=== PATIENT | male | born 1965 | race Caucasian/White ===

== ENCOUNTER 2017-06-09 15:40 | Emergency (ER) | payer MEDICAID ==
--- NOTE | 2017-06-09 17:24 | EDM.PDOCBH ---
ED HPI GENERAL MEDICAL PROBLEM - General Chief Complaint: Drug or Alcohol Abuse Stated Complaint: MEDICAL CLEARANCE Time Seen by Provider: 06/09/17 16:05 Source of Information: Reports: Patient History Limitations: Reports: Intoxication - History of Present Illness INITIAL COMMENTS - FREE TEXT/NARRATIVE: The patient presents for medical clearance. The patient is an alcoholic and the called [facility] and they can get him into the [facility] for treatment. He last drank about an hour ago. He drinks vodka daily. He has been drinking heavy for about 4 years. He has a history of HTN and hypercholesterolemia. He is not taking his medications lately. He has no pain now. He is not short of breath. Onset: Gradual Duration: Week(s): Severity: Moderate Improves with: Reports: None Worsens with: Reports: None Associated Symptoms: Reports: No Other Symptoms - Related Data Allergies Allergy/AdvReac Type Severity Reaction Status Date / Time Penicillins Allergy Cannot Verified 06/09/17 16:03 Remember Home Meds: Home Meds Ascorbic Acid 500 mg PO DAILY 06/09/17 [History] Aspirin [Adult Low Dose Aspirin EC] 81 mg PO DAILY 06/09/17 [History] Bisoprolol/Hydrochlorothiazide [Bisoprolol/HCTZ 5-6.25 MG] 1 tab PO DAILY [History] Cyanocobalamin (Vitamin B-12) [Vitamin B-12] 100 mcg PO DAILY 06/09/17 [History] LORazepam [Ativan] 0.5 mg PO QID PRN 06/09/17 [History] Losartan Potassium 100 mg PO DAILY 06/09/17 [History] Pravastatin Sodium 20 mg PO DAILY 06/09/17 [History] Varenicline Tartrate [Chantix] 1 mg PO BID 06/09/17 [History] amLODIPine Besylate [Amlodipine Besylate] 5 mg PO DAILY 06/09/17 [History] buPROPion [Wellbutrin SR] 150 mg PO BID 06/09/17 [History] Past Medical History Cardiovascular History: Reports: High Cholesterol, Hypertension Psychiatric History: Reports: Addiction Social & Family History - Tobacco Use Smoking Status *Q: Current Every Day Smoker Years of Tobacco use: 40 Packs/Tins Daily: 1 Used Tobacco, but Quit: No Second Hand Smoke Exposure: No - Caffeine Use Caffeine Use: Reports: None - Alcohol Use Days Per Week of Alcohol Use: 7 Number of Drinks Per Day: 6 Total Drinks Per Week: 42 Date of Last Drink: 06/09/17 Time of Last Drink: 14:00 - Recreational Drug Use Recreational Drug Use: No ED ROS GENERAL - Review of Systems Review Of Systems: See Below Constitutional: Reports: No Symptoms HEENT: Reports: No Symptoms Respiratory: Reports: No Symptoms Cardiovascular: Reports: No Symptoms Endocrine: Reports: No Symptoms GI/Abdominal: Reports: No Symptoms : Reports: No Symptoms Musculoskeletal: Reports: No Symptoms ED EXAM, BEHAVIORAL HEALTH - Physical Exam Exam: See Below Exam Limited By: Intoxication General Appearance: Alert, No Apparent Distress Ears: Normal External Exam Nose: Normal Inspection Head: Atraumatic, Normocephalic Neck: Normal Inspection Respiratory/Chest: No Respiratory Distress, Lungs Clear, Normal Breath Sounds Cardiovascular: Regular Rate, Rhythm, No Edema, No Murmur GI/Abdominal: Soft, Non-Tender, No Organomegaly, No Mass Back Exam: Normal Inspection Extremities: Normal Inspection EKG INTERPRETATION EKG Date: 06/09/17 Time: 17:23 Rhythm: Other (sinus tachycardia) Rate (Beats/Min): 101 Omega: Normal P-Wave: Present QRS: Normal ST-T: Normal QT: Normal COURSE, BEHAVIORAL HEALTH COMP - Course Vital Signs: Last Vital Signs Temp 97.4 F 06/09/17 15:59 Pulse 113 H 06/09/17 15:59 Resp 18 06/09/17 15:59 BP 141/111 H 06/09/17 15:59 Pulse Ox 98 06/09/17 15:59 Orders, Labs, Meds: Active Orders 24 hr Category Date Time Status Cardiac Monitoring [RC] . DIRECTED Care 06/09/17 16:23 Active EKG Documentation Completion [RC] ASDIRECTED Care 06/09/17 16:24 Active EKG 12 Lead [EK] Stat Ther 06/09/17 16:24 Ordered Laboratory Tests 06/09/17 06/09/17 06/09/17 Range/Units 17:00 17:19 17:19 WBC 4.12 L (4.23-9.07) K/mm3 RBC 4.53 L (4.63-6.08) M/mm3 Hgb 14.6 (13.7-17.5) gm/L Hct 42.4 (40.1-51.0) % MCV 93.6 H (79.0-92.2) fl MCH 32.2 (25.7-32.2) pg MCHC 34.4 (32.2-35.5) g/dl RDW Std Deviation 48.9 H (35.1-43.9) fL Plt Count 76 L (163-337) K/mm3 MPV 11.3 (9.4-12.3) fl Neut % (Auto) 62.4 (34.0-67.9) % Lymph % (Auto) 25.5 (21.8-53.1) % [place] % (Auto) 10.0 (5.3-12.2) % Eos % (Auto) 0.7 L (0.8-7.0) Baso % (Auto) 0.7 (0.1-1.2) % Neut # (Auto) 2.57 (1.78-5.38) K/mm3 Lymph # (Auto) 1.05 L (1.32-3.57) K/mm3 [place] # (Auto) 0.41 (0.30-0.82) K/mm3 Eos # (Auto) 0.03 L (0.04-0.54) K/mm3 Baso # (Auto) 0.03 (0.01-0.08) K/mm3 Manual Slide Review Abnormal smear Sodium 138 (136-145) mEq/L Potassium 3.1 L (3.5-5.1) mEq/L Chloride 98 (98-107) mEq/L Carbon Dioxide 22 (21-32) mEq/L Anion Gap 21.1 H (5-15) BUN 7 (7-18) mg/dL Creatinine 0.7 (0.7-1.3) mg/dL Est Cr Clr Drug Dosing 86.31 mL/min Estimated GFR (MDRD) > 60 (>60) mL/min BUN/Creatinine Ratio 10.0 L (14-18) Glucose 98 (74-106) mg/dL Calcium 8.8 (8.5-10.1) mg/dL Total Bilirubin 2.1 H (0.2-1.0) mg/dL AST 396 H (15-37) U/L ALT 263 H (16-63) U/L Alkaline Phosphatase 74 (46-116) U/L Total Protein 6.6 (6.4-8.2) g/dl Albumin 3.2 L (3.4-5.0) g/dl Globulin 3.4 gm/dL Albumin/Globulin Ratio 0.9 L (1-2) Urine Opiates Screen Negative (NEGATIVE) Ur Buprenorphine Scrn Negative (NEGATIVE) Ur Oxycodone Screen Negative (NEGATIVE) Urine Methadone Screen Negative (NEGATIVE) Ur Propoxyphene Screen Negative (NEGATIVE) Ur Barbiturates Screen Negative (NEGATIVE) Ur Tricyclics Screen Negative (NEGATIVE) Ur Phencyclidine Scrn Negative (NEGATIVE) Ur Amphetamine Screen Negative (NEGATIVE) U Methamphetamines Scrn Negative (NEGATIVE) U Benzodiazepines Scrn Presumptive positive H (NEGATIVE) U Cocaine Metab Screen Negative (NEGATIVE) U Marijuana (THC) Screen Negative (NEGATIVE) Ethyl Alcohol 0.18 (0.00) gm% Re-Assessment/Re-Exam: His platelets were low at 76. His UDS was presumptive positive for benzos. His K was a little low at 3.1. His total bili is elevated at 2.1. His AST was elevated at 396. His ALT was elevated at 263. His ETOH was elevated at 0.18. I attempted to call the [facility] crisis line a few times with no luck. I will give the patient some ativan and he can follow up with [facility] tomorrow. Departure - Departure Time of Disposition: 18:10 Disposition: Home, Self-Care 01 Condition: Good Clinical Impression: Alcohol abuse, Thrombocytopenia, Elevated liver enzymes Alcohol intoxication Qualifiers: Complication of substance-induced condition: uncomplicated Qualified Code(s): F10.920 - Alcohol use, unspecified with intoxication, uncomplicated - Discharge Information Referrals: John Ball MD [Primary Care Provider] - 1 Week Additional Instructions: Call [facility] in the morning at . Take the ativan as prescribed. One pill 3 times per day for 3 days, one pill 2 times per day for 3 days and then 1 pill at night for 3 days. Please return if you are worse. Follow up with Dr Ball for the low platelets. - My Orders Last 24 Hours: My Active Orders 06/09/17 16:23 Cardiac Monitoring [RC] . DIRECTED 06/09/17 16:24 EKG Documentation Completion [RC] ASDIRECTED EKG 12 Lead [EK] Stat - Assessment/Plan Last 24 Hours: My Active Orders 06/09/17 16:23 Cardiac Monitoring [RC] . DIRECTED 06/09/17 16:24 EKG Documentation Completion [RC] ASDIRECTED EKG 12 Lead [EK] Stat
== END 2017-06-09 18:20 | disposition home or self-care (01) ==
LOC: JD.ED 15:40
DX: D69.6 Thrombocytopenia, unspecified (principal); F10.120 Alcohol abuse with intoxication, uncomplicated; R74.8 Abnormal levels of other serum enzymes; E78.00 Pure hypercholesterolemia, unspecified; I10 Essential (primary) hypertension; F17.210 Nicotine dependence, cigarettes, uncomplicated; Z88.0 Allergy status to penicillin; Z79.82 Long term (current) use of aspirin; Z79.899 Other long term (current) drug therapy
CPT/HCPCS: 36415; 80053; 80306; 85025; 93005; 99284; G0480; 93010

== ENCOUNTER 2017-06-11 19:36 | Observation (INO) | payer MEDICAID ==
[2017-06-11] MEDS ORDERED: Sodium Chloride 0.9% 1,000 ML IV ONE ×2 (19:57→21:03)
[2017-06-11] MEDS ORDERED: Sodium Chloride 0.9% 10 ML Syringe FLUSH PRN (19:58)
--- NOTE | 2017-06-11 20:15 | EDM.PDOC ---
ED HPI GENERAL MEDICAL PROBLEM - General Chief Complaint: Cardiovascular Problem Stated Complaint: LOW BLOOD PRESSURE Time Seen by Provider: 06/11/17 20:00 Source of Information: Reports: Patient History Limitations: Reports: No Limitations - History of Present Illness INITIAL COMMENTS - FREE TEXT/NARRATIVE: 51-year-old male arrives via private vehicle for evaluation treatment of hypotension. A call out for the ambulance service for a male at the [facility] with hypotension. He declined ambulance transfer and came in by private vehicle. Reviewed the patient's records show that he was here in the ER on June 09. She was here for medical clearance for the [facility]. EKG and lab studies were done. He was given Ativan for withdrawal symptoms instructed to go to the [facility]. Patient continued to drink alcohol and arrived at the [facility] only today. His last drink was earlier today. He states he is only had 2 shots of alcohol today. He normally drinks 3-6 shots of vodka per day. States she's been doing this for the last few months. Patient reports while the [facility] he felt dizzy and fell. He did hit his head but no loss of consciousness. He reports that he felt fatigued and that is why he fell. Patient also reports she's been having black tarry stools for the last week. He states he is having diarrhea. He denies any chest pain, shortness of breath or vomiting. Patient is on high blood pressure medications. He states he took one of these blood pressure medications today. Primary care provider is Dr. Ball. - Related Data Allergies Allergy/AdvReac Type Severity Reaction Status Date / Time Penicillins Allergy Cannot Verified 06/11/17 19:48 Remember Home Meds: Home Meds Ascorbic Acid 500 mg PO DAILY 06/09/17 [History] Aspirin [Adult Low Dose Aspirin EC] 81 mg PO DAILY 06/09/17 [History] Bisoprolol/Hydrochlorothiazide [Bisoprolol/HCTZ 5-6.25 MG] 1 tab PO DAILY [History] Cyanocobalamin (Vitamin B-12) [Vitamin B-12] 100 mcg PO DAILY 06/09/17 [History] LORazepam [Ativan] 0.5 mg PO TID 06/09/17 [History] Losartan Potassium 100 mg PO DAILY 06/09/17 [History] Pravastatin Sodium 20 mg PO DAILY 06/09/17 [History] Varenicline Tartrate [Chantix] 1 mg PO BID 06/09/17 [History] amLODIPine Besylate [Amlodipine Besylate] 5 mg PO DAILY 06/09/17 [History] buPROPion [Wellbutrin SR] 150 mg PO BID 06/09/17 [History] Past Medical History Cardiovascular History: Reports: High Cholesterol, Hypertension Psychiatric History: Reports: Addiction Social & Family History - Tobacco Use Smoking Status *Q: Current Every Day Smoker Years of Tobacco use: 20 Packs/Tins Daily: 0.5 Used Tobacco, but Quit: No Tobacco Use Comment: pt on nicotine patch Second Hand Smoke Exposure: No - Caffeine Use Caffeine Use: Reports: None - Alcohol Use Days Per Week of Alcohol Use: 7 Number of Drinks Per Day: 6 Total Drinks Per Week: 42 Date of Last Drink: 06/11/17 - Recreational Drug Use Recreational Drug Use: No ED ROS GENERAL - Review of Systems Review Of Systems: See Below Respiratory: Denies: Shortness of Breath Cardiovascular: Reports: Blood Pressure Problem, Lightheadedness. Denies: Chest Pain, Syncope GI/Abdominal: Reports: Melena. Denies: Abdominal Pain Neurological: Denies: Headache, Syncope ED EXAM, GENERAL - Physical Exam Exam: See Below Exam Limited By: No Limitations General Appearance: Alert, WD/WN, No Apparent Distress Eye Exam: Bilateral Eye: Normal Inspection, PERRL Ears: Normal External Exam Nose: Normal Inspection Throat/Mouth: Normal Inspection, Normal Oropharynx, Normal Voice, No Airway Compromise Head: Atraumatic, Normocephalic Neck: Normal Inspection, Supple, Non-Tender, Full Range of Motion Respiratory/Chest: No Respiratory Distress, Lungs Clear, Normal Breath Sounds Cardiovascular: Normal Peripheral Pulses, Regular Rate, Rhythm, No Murmur GI/Abdominal: Normal Bowel Sounds, Soft, Non-Tender, Distended Rectal (Males) Exam: Normal Exam, Heme + Stool Neurological: Alert, Oriented, Normal Cognition Psychiatric: Normal Affect, Normal Mood Skin Exam: Warm, Dry, Normal Color EKG INTERPRETATION EKG Date: 06/11/17 Time: 20:30 Rhythm: NSR Rate (Beats/Min): 86 [place]: Normal P-Wave: Present QRS: Normal ST-T: Normal QT: Prolonged EKG Interpretation Comments: NSR at 86 bpm. Prolonged Qt with a QTc of 509. No acute ischemic changes. Reviewed by myself and Dr. Ruth. Course - Vital Signs Last Recorded V/S: Last Vital Signs Temp 36.6 C 06/11/17 19:43 Pulse 91 06/11/17 19:43 Resp 21 H 06/11/17 19:43 BP 93/63 06/11/17 19:43 Pulse Ox 96 06/11/17 19:43 Orthostatic Blood Pressure [ 99/59 Standing] Orthostatic Blood Pressure [ 93/60 Sitting] Orthostatic Blood Pressure [ 74/43 Supine] - Orders/Labs/Meds Orders: Active Orders 24 hr Category Date Time Status Antiembolic Devices [RC] PER UNIT ROUTINE Care 06/12/17 00:55 Active CIWAA Assessment [RC] Q15M Care 06/12/17 00:57 Active CIWAA Assessment [RC] Q1H Care 06/12/17 00:57 Active CIWAA Assessment [RC] Q30M Care 06/12/17 00:57 Active CIWAA Assessment [RC] Q4H Care 06/12/17 00:57 Active Cardiac Monitoring [RC] . DIRECTED Care 06/11/17 20:00 Active Cardiac Monitoring [RC] CONTINUOUS Care 06/12/17 00:53 Active EKG Documentation Completion [RC] ASDIRECTED Care 06/11/17 19:59 Active Height and Weight [RC] DAILY Care 06/12/17 00:52 Active Hemoccult [Fecal Occult Blood Collection] [RC] Care 06/11/17 20:40 Active ASDIRECTED Intake and Output [RC] QSHIFT Care 06/12/17 00:52 Active Notify Provider Consults [RC] ASDIRECTED Care 06/12/17 00:57 Active Notify Provider [RC] PRN Care 06/12/17 00:57 Active Orthostatic Vital Signs [RC] ASDIRECTED Care 06/11/17 20:11 Active Oxygen Therapy [RC] PRN Care 06/12/17 00:52 Active Peripheral IV Care [RC] . DIRECTED Care 06/11/17 19:58 Active RT Aerosol Therapy [RC] ASDIRECTED Care 06/12/17 00:55 Active Up With Assistance [RC] ASDIRECTED Care 06/12/17 00:52 Active Up ad Brooke [RC] ASDIRECTED Care 06/12/17 00:52 Active VTE/DVT Education [RC] PER UNIT ROUTINE Care 06/12/17 00:52 Active Vital Signs [RC] Q4H Care 06/12/17 00:52 Active Consult to Case Management [CONS] Routine Cons 06/12/17 00:56 Active Consult to Physician [CONS] Routine Cons 06/12/17 00:56 Active Consult to Screen Room Operator [CONS] Routine Cons 06/12/17 00:56 Active Consult to Spiritual Care [CONS] Routine Cons 06/12/17 00:56 Active NPO [Nothing Per Oral Diet] [DIET] Diet 06/12/17 Breakfast Active Abdomen Pelvis w Cont [CT] Stat Exams 06/11/17 21:04 Taken Chest 1V Frontal [CR] Stat Exams 06/11/17 19:59 Taken Head wo Cont [CT] Stat Exams 06/11/17 21:04 Taken A1C [GLYCOSYLATED HEMOGLOBIN,HGBA1C] [CHEM] Routine Lab 06/12/17 05:11 Ordered BASIC METABOLIC PANEL,BMP [CHEM] AM Lab 06/12/17 05:11 Ordered BASIC METABOLIC PANEL,BMP [CHEM] AM Lab 06/13/17 05:11 Ordered BASIC METABOLIC PANEL,BMP [CHEM] AM Lab 06/14/17 05:11 Ordered BASIC METABOLIC PANEL,BMP [CHEM] AM Lab 06/15/17 05:11 Ordered BASIC METABOLIC PANEL,BMP [CHEM] AM Lab 06/16/17 05:11 Ordered CBC WITH AUTO DIFF [HEME] AM Lab 06/12/17 05:11 Ordered CBC WITH AUTO DIFF [HEME] AM Lab 06/13/17 05:11 Ordered CBC WITH AUTO DIFF [HEME] AM Lab 06/14/17 05:11 Ordered CBC WITH AUTO DIFF [HEME] AM Lab 06/15/17 05:11 Ordered CBC WITH AUTO DIFF [HEME] AM Lab 06/16/17 05:11 Ordered Guaiac [OCCULT BLOOD DIAGNOSTIC] [OP] Stat Lab 06/11/17 20:39 Uncollected MAGNESIUM [CHEM] AM Lab 06/12/17 05:11 Ordered MAGNESIUM [CHEM] AM Lab 06/13/17 05:11 Ordered MAGNESIUM [CHEM] AM Lab 06/14/17 05:11 Ordered MAGNESIUM [CHEM] AM Lab 06/15/17 05:11 Ordered MAGNESIUM [CHEM] AM Lab 06/16/17 05:11 Ordered PATIENT RETYPE [BBK] Stat Lab 06/11/17 20:14 Results TYPE AND SCREEN [BBK] Stat Lab 06/11/17 20:14 Results Albuterol/Ipratropium [DuoNeb 3.0-0.5 MG/3 ML] Med 06/12/17 00:55 Ordered 3 ml NEB Q4H PRN Ascorbic Acid [Vitamin C] Med 06/12/17 09:00 Ordered 500 mg PO DAILY Aspirin [Halfprin] Med 06/12/17 09:00 Ordered 81 mg PO DAILY Bisacodyl [Dulcolax] Med 06/12/17 00:55 Ordered 5 mg PO DAILY PRN Bisoprolol/Hydrochlorothiazide Med 06/12/17 09:00 Ordered 1 tab PO DAILY Cyanocobalamin (Vitamin B-12) Med 06/12/17 09:00 Ordered 100 mcg PO DAILY Docusate Sodium [Colace] Med 06/12/17 00:55 Ordered 100 mg PO BID PRN Docusate Sodium/Sennosides [Senna Plus] Med 06/12/17 00:55 Ordered 1 tab PO BID PRN Folic Acid Med 06/13/17 09:00 Ordered 1 mg PO DAILY Folic Acid Med 06/12/17 00:57 Once 1 mg SUBCUT ONETIME ONE HYDROmorphone [Dilaudid] Med 06/12/17 00:52 Ordered 0.5 mg IVPUSH Q2H PRN Haloperidol Lactate [Haldol] Med 06/12/17 00:57 Ordered 2 mg IM Q4H PRN Ibuprofen [Motrin] Med 06/12/17 00:52 Ordered 600 mg PO Q6H PRN LORazepam [Ativan] Med 06/12/17 09:00 Ordered 0.5 mg PO TID LORazepam [Ativan] Med 06/12/17 00:52 Ordered 2 mg IVPUSH Q4H PRN LORazepam [Ativan] Med 06/12/17 00:52 Ordered See Protocol IVPUSH Q4H PRN Lactated Ringers [Ringers, Lactated] 1,000 ml Med 06/12/17 00:29 Ordered IV .BOLUS Lactated Ringers [Ringers, Lactated] 1,000 ml Med 06/12/17 01:15 Ordered IV ASDIRECTED Losartan [Cozaar] Med 06/12/17 09:00 Ordered 100 mg PO DAILY Magnesium Rep Pharmacy to Dose [Pharmacy to Dose - Med 06/12/17 01:00 Ordered Magnesium Replacement] 1 dose .XX ASDIRECTED Magnesium Sulfate/Water [Magnesium Sulfate 4 GM in Med 06/12/17 01:14 Ordered Water 100 ML] 4 gm Premix Bag 1 bag IV ONETIME Metoprolol Tartrate [Lopressor] Med 06/12/17 00:52 Ordered 5 mg IVPUSH Q4H PRN Multivitamins,Therapeutic [Thera] Med 06/12/17 00:57 Once 1 each PO ONETIME ONE Nicotine [Habitrol] Med 06/12/17 09:00 Ordered 21 mg TRDERM DAILY Ondansetron [Zofran] Med 06/12/17 00:52 Ordered 4 mg IV Q6H PRN Pantoprazole [ProTONIX IV] Med 06/12/17 09:00 Ordered 40 mg IV Q12HR Polyethylene Glycol 3350 [MiraLAX] Med 06/12/17 00:55 Ordered 17 gm PO DAILY PRN Potassium Chloride [KCl 10 MEQ in Water 100 ML] 10 meq Med 06/11/17 21:15 Active Premix Bag 1 bag IV ASDIRECTED Potassium Chloride [Klor-Con M20] Med 06/12/17 01:12 Stat 60 meq PO NOW STA Potassium Rep Pharmacy to Dose [Pharmacy to Dose - Med 06/12/17 01:00 Ordered Potassium Replacement] 1 dose .XX ASDIRECTED Pravastatin Sodium Med 06/12/17 09:00 Ordered 20 mg PO DAILY Promethazine [Phenergan] 12.5 mg Med 06/12/17 00:52 Ordered Sodium Chloride 0.9% [Normal Saline] 50 ml IV Q6H QUEtiapine [SEROquel] Med 06/12/17 21:00 Ordered 50 mg PO BEDTIME QUEtiapine [SEROquel] Med 06/12/17 01:00 Once 50 mg PO ONETIME ONE Sodium Chloride 0.9% [Saline Flush] Med 06/11/17 19:58 Active 10 ml FLUSH ASDIRECTED PRN Thiamine [Vitamin B-1] Med 06/13/17 09:00 Ordered 100 mg PO DAILY Thiamine [Vitamin B-1] 200 mg Med 06/12/17 00:57 Ordered Sodium Chloride 0.9% [Normal Saline] 50 ml IV ONETIME Topiramate [Topamax] Med 06/12/17 21:00 Ordered 25 mg PO BID Topiramate [Topamax] Med 06/12/17 01:01 Stat 25 mg PO NOW STA Varenicline Tartrate [Chantix] Med 06/12/17 09:00 Ordered 1 mg PO BID amLODIPine [Norvasc] Med 06/12/17 09:00 Ordered 5 mg PO DAILY buPROPion Med 06/12/17 09:00 Ordered 150 mg PO BID chlordiazePOXIDE [Librium] Med 06/12/17 01:08 Ordered 25 mg PO QID PRN cloNIDine [Catapres] Med 06/12/17 00:57 Ordered 0.1 mg PO Q4H PRN hydrALAZINE [Apresoline] Med 06/12/17 00:52 Ordered 20 mg IVPUSH Q4H PRN oxyCODONE Med 06/12/17 00:52 Ordered 5 mg PO Q4H PRN Peripheral IV Insertion Adult [OM.PC] Routine Oth 06/11/17 19:57 Ordered Seizure Precautions [OM.PC] Routine Oth 06/12/17 00:57 Ordered Sequential Compression Device [OM.PC] Per Unit Routine Oth 06/12/17 00:54 Ordered Resuscitation Status Routine Resus Stat 06/12/17 00:52 Ordered EKG 12 Lead [EK] Stat Ther 06/11/17 19:59 Ordered Medication Orders Albuterol/Ipratropium (Duoneb 3.0-0.5 Mg/3 Ml) 3 ml NEB Q4H PRN PRN Reason: Shortness Of Breath/wheezing Amlodipine Besylate (Norvasc) 5 mg PO DAILY LINO Ascorbic Acid (Vitamin C) 500 mg PO DAILY LINO Aspirin (Halfprin) 81 mg PO DAILY LINO Bisacodyl (Dulcolax) 5 mg PO DAILY PRN PRN Reason: Constipation Chlordiazepoxide HCl (Librium) 25 mg PO QID PRN PRN Reason: Withdrawal Symptoms Clonidine HCl (Catapres) 0.1 mg PO Q4H PRN PRN Reason: Agitation Docusate Sodium (Colace) 100 mg PO BID PRN PRN Reason: Constipation Folic Acid (Folic Acid) 1 mg PO DAILY LINO Stop: 06/15/17 09:01 Folic Acid (Folic Acid) 1 mg SUBCUT ONETIME ONE Stop: 06/12/17 00:58 Haloperidol Lactate (Haldol) 2 mg IM Q4H PRN PRN Reason: Agitation Hydralazine HCl (Apresoline) 20 mg IVPUSH Q4H PRN PRN Reason: Hypertension Hydromorphone HCl (Dilaudid) 0.5 mg IVPUSH Q2H PRN PRN Reason: Pain (severe 7-10) Potassium Chloride 10 meq/ (Premix) 100 mls @ 100 mls/hr IV ASDIRECTED [facility] Last Admin: 06/11/17 21:24 Dose: 100 mls/hr Lactated Ringer's (Ringers, Lactated) 1,000 mls @ 100 mls/hr IV .BOLUS ONE Stop: 06/12/17 10:28 Last Admin: 06/12/17 00:46 Dose: 100 mls/hr Promethazine HCl 12.5 mg/ (Sodium Chloride) 50.5 mls @ 100 mls/hr IV Q6H PRN PRN Reason: Nausea/Vomiting Thiamine HCl 200 mg/ Sodium (Chloride) 52 mls @ 100 mls/hr IV ONETIME ONE Stop: 06/12/17 01:27 Lactated Ringer's (Ringers, Lactated) 1,000 mls @ 150 mls/hr IV ASDIRECTED [facility] Ibuprofen (Motrin) 600 mg PO Q6H PRN PRN Reason: Pain (moderate 4-6) Lorazepam (Ativan) 2 mg IVPUSH Q4H PRN PRN Reason: Seizures Lorazepam (Ativan) 0 mg IVPUSH Q4H PRN; Protocol PRN Reason: Withdrawal Symptoms Lorazepam (Ativan) 0.5 mg PO TID [facility] Losartan Potassium (Cozaar) 100 mg PO DAILY [facility] Magnesium Sulfate (Pharmacy To Dose - Magnesium Replacement) 1 dose .XX ASDIRECTED [facility] Metoprolol Tartrate (Lopressor) 5 mg IVPUSH Q4H PRN PRN Reason: Tachycardia Multivitamins (Thera) 1 each PO ONETIME ONE Stop: 06/12/17 00:58 Nicotine (Habitrol) 21 mg TRDERM DAILY [facility] Non-Formulary Medication (Bisoprolol/Hydrochlorothiazide) 1 tab PO DAILY [facility] Non-Formulary Medication (Bupropion) 150 mg PO BID [facility] Non-Formulary Medication (Cyanocobalamin (Vitamin B-12)) 100 mcg PO DAILY [facility] Non-Formulary Medication (Pravastatin Sodium) 20 mg PO DAILY [facility] Non-Formulary Medication (Varenicline Tartrate [Chantix]) 1 mg PO BID [facility] Ondansetron HCl (Zofran) 4 mg IV Q6H PRN PRN Reason: Nausea/Vomiting Oxycodone HCl (Oxycodone) 5 mg PO Q4H PRN PRN Reason: Pain (moderate 4-6) Pantoprazole Sodium (Protonix Iv) 40 mg IV Q12HR LINO Stop: 06/14/17 09:00 Polyethylene Glycol (Miralax) 17 gm PO DAILY PRN PRN Reason: Constipation Potassium Chloride (Pharmacy To Dose - Potassium Replacement) 1 dose .XX ASDIRECTED LINO Quetiapine Fumarate (Seroquel) 50 mg PO ONETIME ONE Stop: 06/12/17 01:01 Quetiapine Fumarate (Seroquel) 50 mg PO BEDTIME [facility] Senna/Docusate Sodium (Senna Plus) 1 tab PO BID PRN PRN Reason: Constipation Sodium Chloride (Saline Flush) 10 ml FLUSH ASDIRECTED PRN PRN Reason: Keep Vein Open Last Admin: 06/11/17 20:26 Dose: 10 ml Thiamine HCl (Vitamin B-1) 100 mg PO DAILY [facility] Topiramate (Topamax) 25 mg PO BID LINO Topiramate (Topamax) 25 mg PO NOW STA Stop: 06/12/17 01:02 Labs: Laboratory Tests 06/11/17 06/11/17 06/11/17 Range/Units 20:14 20:14 20:14 WBC 3.77 L (4.23-9.07) K/mm3 RBC 4.41 L (4.63-6.08) M/mm3 Hgb 14.4 (13.7-17.5) gm/L Hct 41.8 (40.1-51.0) % MCV 94.8 H (79.0-92.2) fl MCH 32.7 H (25.7-32.2) pg MCHC 34.4 (32.2-35.5) g/dl RDW Std Deviation 49.7 H (35.1-43.9) fL Plt Count 108 L (163-337) K/mm3 MPV 11.0 (9.4-12.3) fl Neutrophils % (Manual) 76 H (40-60) % Band Neutrophils % 0 (0-10) % Lymphocytes % (Manual) 18 L (20-40) % Atypical Lymphs % 0 % Monocytes % (Manual) 5 (2-10) % Eosinophils % (Manual) 1 (0.8-7.0) % Basophils % (Manual) 0 L (0.2-1.2) Platelet Estimate Decreased Plt Morphology Comment Normal Anisocytosis 1+ slight Microcytosis 1+ slight Macrocytosis 1+ slight RBC Morph Comment Abnormal PT 10.1 (8.0-13.0) SECONDS INR 0.93 APTT 24 (22-36) SECONDS Sodium 135 L (136-145) mEq/L Potassium 3.0 L (3.5-5.1) mEq/L Chloride 95 L (98-107) mEq/L Carbon Dioxide 24 (21-32) mEq/L Anion Gap 19.0 H (5-15) BUN 12 (7-18) mg/dL Creatinine 1.3 (0.7-1.3) mg/dL Est Cr Clr Drug Dosing 46.47 mL/min Estimated GFR (MDRD) 58 (>60) mL/min BUN/Creatinine Ratio 9.2 L (14-18) Glucose 153 H (74-106) mg/dL Calcium 9.0 (8.5-10.1) mg/dL Magnesium (1.8-2.4) mg/dl Total Bilirubin 1.5 H (0.2-1.0) mg/dL AST 245 H (15-37) U/L ALT 209 H (16-63) U/L Alkaline Phosphatase 70 (46-116) U/L Total Protein 6.3 L (6.4-8.2) g/dl Albumin 3.0 L (3.4-5.0) g/dl Globulin 3.3 gm/dL Albumin/Globulin Ratio 0.9 L (1-2) Lipase 2223 H (73-393) U/L Urine Color (Yellow) Urine Appearance (Clear) Urine pH (5.0-8.0) Ur Specific [place] (1.005-1.030) Urine Protein (Negative) Urine Glucose (UA) (Negative) Urine Ketones (Negative) Urine Occult Blood (Negative) Urine Nitrite (Negative) Urine Bilirubin (Negative) Urine Urobilinogen (0.2-1.0) Ur Leukocyte Esterase (Negative) Urine RBC (0-5) /hpf Urine WBC (0-5) /hpf Ur Epithelial Cells (0-5) /hpf Urine Bacteria (FEW) /hpf Urine Mucus (FEW) /hpf Urine Opiates Screen (NEGATIVE) Ur Buprenorphine Scrn (NEGATIVE) Ur Oxycodone Screen (NEGATIVE) Urine Methadone Screen (NEGATIVE) Ur Propoxyphene Screen (NEGATIVE) Ur Barbiturates Screen (NEGATIVE) Ur Tricyclics Screen (NEGATIVE) Ur Phencyclidine Scrn (NEGATIVE) Ur Amphetamine Screen (NEGATIVE) U Methamphetamines Scrn (NEGATIVE) U Benzodiazepines Scrn (NEGATIVE) U Cocaine Metab Screen (NEGATIVE) U Marijuana (THC) Screen (NEGATIVE) Ethyl Alcohol 0.04 (0.00) gm% Blood Type Gel Antibody Screen 06/11/17 06/11/17 06/11/17 Range/Units 20:14 20:14 20:30 WBC (4.23-9.07) K/mm3 RBC (4.63-6.08) M/mm3 Hgb (13.7-17.5) gm/L Hct (40.1-51.0) % MCV (79.0-92.2) fl MCH (25.7-32.2) pg MCHC (32.2-35.5) g/dl RDW Std Deviation (35.1-43.9) fL Plt Count (163-337) K/mm3 MPV (9.4-12.3) fl Neutrophils % (Manual) (40-60) % Band Neutrophils % (0-10) % Lymphocytes % (Manual) (20-40) % Atypical Lymphs % % Monocytes % (Manual) (2-10) % Eosinophils % (Manual) (0.8-7.0) % Basophils % (Manual) (0.2-1.2) Platelet Estimate Plt Morphology Comment Anisocytosis Microcytosis Macrocytosis RBC Morph Comment PT (8.0-13.0) SECONDS INR APTT (22-36) SECONDS Sodium (136-145) mEq/L Potassium (3.5-5.1) mEq/L Chloride (98-107) mEq/L Carbon Dioxide (21-32) mEq/L Anion Gap (5-15) BUN (7-18) mg/dL Creatinine (0.7-1.3) mg/dL Est Cr Clr Drug Dosing mL/min Estimated GFR (MDRD) (>60) mL/min BUN/Creatinine Ratio (14-18) Glucose (74-106) mg/dL Calcium (8.5-10.1) mg/dL Magnesium 1.5 L (1.8-2.4) mg/dl Total Bilirubin (0.2-1.0) mg/dL AST (15-37) U/L ALT (16-63) U/L Alkaline Phosphatase (46-116) U/L Total Protein (6.4-8.2) g/dl Albumin (3.4-5.0) g/dl Globulin gm/dL Albumin/Globulin Ratio (1-2) Lipase (73-393) U/L Urine Color Berta H (Yellow) Urine Appearance Slt cloudy H (Clear) Urine pH 6.0 (5.0-8.0) Ur Specific [place] 1.025 (1.005-1.030) Urine Protein 3+ H (Negative) Urine Glucose (UA) Negative (Negative) Urine Ketones 1+ H (Negative) Urine Occult Blood Trace-lysed H (Negative) Urine Nitrite Negative (Negative) Urine Bilirubin 2+ H (Negative) Urine Urobilinogen 4.0 H (0.2-1.0) Ur Leukocyte Esterase Negative (Negative) Urine RBC Not seen (0-5) /hpf Urine WBC 0-5 (0-5) /hpf Ur Epithelial Cells 0-5 (0-5) /hpf Urine Bacteria Not seen (FEW) /hpf Urine Mucus Not seen (FEW) /hpf Urine Opiates Screen (NEGATIVE) Ur Buprenorphine Scrn (NEGATIVE) Ur Oxycodone Screen (NEGATIVE) Urine Methadone Screen (NEGATIVE) Ur Propoxyphene Screen (NEGATIVE) Ur Barbiturates Screen (NEGATIVE) Ur Tricyclics Screen (NEGATIVE) Ur Phencyclidine Scrn (NEGATIVE) Ur Amphetamine Screen (NEGATIVE) U Methamphetamines Scrn (NEGATIVE) U Benzodiazepines Scrn (NEGATIVE) U Cocaine Metab Screen (NEGATIVE) U Marijuana (THC) Screen (NEGATIVE) Ethyl Alcohol (0.00) gm% Blood Type A POSITIVE Gel Antibody Screen Negative 06/11/17 Range/Units 22:30 WBC (4.23-9.07) K/mm3 RBC (4.63-6.08) M/mm3 Hgb (13.7-17.5) gm/L Hct (40.1-51.0) % MCV (79.0-92.2) fl MCH (25.7-32.2) pg MCHC (32.2-35.5) g/dl RDW Std Deviation (35.1-43.9) fL Plt Count (163-337) K/mm3 MPV (9.4-12.3) fl Neutrophils % (Manual) (40-60) % Band Neutrophils % (0-10) % Lymphocytes % (Manual) (20-40) % Atypical Lymphs % % Monocytes % (Manual) (2-10) % Eosinophils % (Manual) (0.8-7.0) % Basophils % (Manual) (0.2-1.2) Platelet Estimate Plt Morphology Comment Anisocytosis Microcytosis Macrocytosis RBC Morph Comment PT (8.0-13.0) SECONDS INR APTT (22-36) SECONDS Sodium (136-145) mEq/L Potassium (3.5-5.1) mEq/L Chloride (98-107) mEq/L Carbon Dioxide (21-32) mEq/L Anion Gap (5-15) BUN (7-18) mg/dL Creatinine (0.7-1.3) mg/dL Est Cr Clr Drug Dosing mL/min Estimated GFR (MDRD) (>60) mL/min BUN/Creatinine Ratio (14-18) Glucose (74-106) mg/dL Calcium (8.5-10.1) mg/dL Magnesium (1.8-2.4) mg/dl Total Bilirubin (0.2-1.0) mg/dL AST (15-37) U/L ALT (16-63) U/L Alkaline Phosphatase (46-116) U/L Total Protein (6.4-8.2) g/dl Albumin (3.4-5.0) g/dl Globulin gm/dL Albumin/Globulin Ratio (1-2) Lipase (73-393) U/L Urine Color (Yellow) Urine Appearance (Clear) Urine pH (5.0-8.0) Ur Specific [place] (1.005-1.030) Urine Protein (Negative) Urine Glucose (UA) (Negative) Urine Ketones (Negative) Urine Occult Blood (Negative) Urine Nitrite (Negative) Urine Bilirubin (Negative) Urine Urobilinogen (0.2-1.0) Ur Leukocyte Esterase (Negative) Urine RBC (0-5) /hpf Urine WBC (0-5) /hpf Ur Epithelial Cells (0-5) /hpf Urine Bacteria (FEW) /hpf Urine Mucus (FEW) /hpf Urine Opiates Screen Negative (NEGATIVE) Ur Buprenorphine Scrn Negative (NEGATIVE) Ur Oxycodone Screen Negative (NEGATIVE) Urine Methadone Screen Negative (NEGATIVE) Ur Propoxyphene Screen Negative (NEGATIVE) Ur Barbiturates Screen Negative (NEGATIVE) Ur Tricyclics Screen Negative (NEGATIVE) Ur Phencyclidine Scrn Negative (NEGATIVE) Ur Amphetamine Screen Negative (NEGATIVE) U Methamphetamines Scrn Negative (NEGATIVE) U Benzodiazepines Scrn Presumptive positive H (NEGATIVE) U Cocaine Metab Screen Negative (NEGATIVE) U Marijuana (THC) Screen Negative (NEGATIVE) Ethyl Alcohol (0.00) gm% Blood Type Gel Antibody Screen Meds: Medications Generic Name Dose Route Start Last Admin Trade Name Freq PRN Reason Stop Dose Admin Albuterol/Ipratropium 3 ml 06/12/17 00:55 Duoneb 3.0-0.5 Mg/3 Ml NEB Q4H PRN Shortness Of Breath/wheezing Amlodipine Besylate 5 mg 06/12/17 09:00 Norvasc PO DAILY [facility] Ascorbic Acid 500 mg 06/12/17 09:00 Vitamin C PO DAILY [facility] Aspirin 81 mg 06/12/17 09:00 Halfprin PO DAILY [facility] Bisacodyl 5 mg 06/12/17 00:55 Dulcolax PO DAILY PRN Constipation Chlordiazepoxide HCl 25 mg 06/12/17 01:08 Librium PO QID PRN Withdrawal Symptoms Clonidine HCl 0.1 mg 06/12/17 00:57 Catapres PO Q4H PRN Agitation Docusate Sodium 100 mg 06/12/17 00:55 Colace PO BID PRN Constipation Folic Acid 1 mg 06/13/17 09:00 Folic Acid PO 06/15/17 09:01 DAILY [facility] Folic Acid 1 mg 06/12/17 00:57 Folic Acid SUBCUT 06/12/17 00:58 ONETIME ONE Haloperidol Lactate 2 mg 06/12/17 00:57 Haldol IM Q4H PRN Agitation Hydralazine HCl 20 mg 06/12/17 00:52 Apresoline IVPUSH Q4H PRN Hypertension Hydromorphone HCl 0.5 mg 06/12/17 00:52 Dilaudid IVPUSH Q2H PRN Pain (severe 7-10) Potassium Chloride 10 meq/ 100 mls @ 100 mls/hr 06/11/17 21:15 06/11/17 21:24 Premix IV 100 mls/hr ASDIRECTED LINO Administration Lactated Ringer's 1,000 mls @ 100 mls/hr 06/12/17 00:29 06/12/17 00:46 Ringers, Lactated IV 06/12/17 10:28 100 mls/hr .BOLUS ONE Administration Promethazine HCl 12.5 mg/ 50.5 mls @ 100 mls/hr 06/12/17 00:52 Sodium Chloride IV Q6H PRN Nausea/Vomiting Thiamine HCl 200 mg/ Sodium 52 mls @ 100 mls/hr 06/12/17 00:57 Chloride IV 06/12/17 01:27 ONETIME ONE Lactated Ringer's 1,000 mls @ 150 mls/hr 06/12/17 01:15 Ringers, Lactated IV ASDIRECTED [facility] Ibuprofen 600 mg 06/12/17 00:52 Motrin PO Q6H PRN Pain (moderate 4-6) Lorazepam 2 mg 06/12/17 00:52 Ativan IVPUSH Q4H PRN Seizures Lorazepam 0 mg 06/12/17 00:52 Ativan IVPUSH Q4H PRN Withdrawal Symptoms Protocol Lorazepam 0.5 mg 06/12/17 09:00 Ativan PO TID [facility] Losartan Potassium 100 mg 06/12/17 09:00 Cozaar PO DAILY [facility] Magnesium Sulfate 1 dose 06/12/17 01:00 Pharmacy To Dose - Magnesium Replacement .XX ASDIRECTED [facility] Metoprolol Tartrate 5 mg 06/12/17 00:52 Lopressor IVPUSH Q4H PRN Tachycardia Multivitamins 1 each 06/12/17 00:57 Thera PO 06/12/17 00:58 ONETIME ONE Nicotine 21 mg 06/12/17 09:00 Habitrol TRDERM DAILY [facility] Non-Formulary Medication 1 tab 06/12/17 09:00 Bisoprolol/Hydrochlorothiazide PO DAILY [facility] Non-Formulary Medication 150 mg 06/12/17 09:00 Bupropion PO BID [facility] Non-Formulary Medication 100 mcg 06/12/17 09:00 Cyanocobalamin (Vitamin B-12) PO DAILY [facility] Non-Formulary Medication 20 mg 06/12/17 09:00 Pravastatin Sodium PO DAILY [facility] Non-Formulary Medication 1 mg 06/12/17 09:00 Varenicline Tartrate [Chantix] PO BID [facility] Ondansetron HCl 4 mg 06/12/17 00:52 Zofran IV Q6H PRN Nausea/Vomiting Oxycodone HCl 5 mg 06/12/17 00:52 Oxycodone PO Q4H PRN Pain (moderate 4-6) Pantoprazole Sodium 40 mg 06/12/17 09:00 Protonix Iv IV 06/14/17 09:00 Q12HR [facility] Polyethylene Glycol 17 gm 06/12/17 00:55 Miralax PO DAILY PRN Constipation Potassium Chloride 1 dose 06/12/17 01:00 Pharmacy To Dose - Potassium Replacement .XX ASDIRECTED [facility] Quetiapine Fumarate 50 mg 06/12/17 01:00 Seroquel PO 06/12/17 01:01 ONETIME ONE Quetiapine Fumarate 50 mg 06/12/17 21:00 Seroquel PO BEDTIME [facility] Senna/Docusate Sodium 1 tab 06/12/17 00:55 Senna Plus PO BID PRN Constipation Sodium Chloride 10 ml 06/11/17 19:58 06/11/17 20:26 Saline Flush FLUSH 10 ml ASDIRECTED PRN Administration Keep Vein Open Thiamine HCl 100 mg 06/13/17 09:00 Vitamin B-1 PO DAILY [facility] Topiramate 25 mg 06/12/17 21:00 Topamax PO BID [facility] Topiramate 25 mg 06/12/17 01:01 Topamax PO 06/12/17 01:02 NOW STA Discontinued Medications Generic Name Dose Route Start Last Admin Trade Name Freq PRN Reason Stop Dose Admin Sodium Chloride 1,000 mls @ 999 mls/hr 06/11/17 19:57 06/11/17 20:25 Normal Saline IV 06/11/17 20:57 999 mls/hr ONETIME ONE Administration Sodium Chloride 1,000 mls @ 999 mls/hr 06/11/17 21:03 06/11/17 21:27 Normal Saline IV 06/11/17 22:03 999 mls/hr ONETIME ONE Administration Lorazepam 0.5 mg 06/11/17 20:42 01/31/18 20:47 Ativan IVPUSH 06/11/17 20:43 0.5 mg ONETIME ONE Administration Lorazepam 0.5 mg 06/12/17 00:17 06/12/17 00:28 Ativan IVPUSH 06/12/17 00:18 0.5 mg ONETIME ONE Administration Pantoprazole Sodium 40 mg 06/11/17 20:30 06/11/17 20:48 Protonix Iv IVPUSH 06/11/17 20:31 40 mg ONETIME ONE Administration - Radiology Interpretation Free Text/Narrative:: chest xray shows no acute intrathoracic process. Head CT without contrast impress per vrad: No intracranial mass effect, hemorrhage or acute large territory infarct. CT of the abdomen and pelvis with oral and IV contrast impresion per vraD: Diffuse fatty infiltration of the liver. The liver is also mildly enlarged. Mild perinephric edema noted. Please correlate with urinalysis. No definitive evidence of pancreatitis. - Re-Assessments/Exams Free Text/Narrative Re-Assessment/Exam: 06/11/17 20:[address] Ruth. He did not feel we needed to do a head CT at this time. Will hold off on doing a head CT at this time. 06/11/17 21:36 Labs returned. Of note his lipase is elevated at over 2200. Will get CT of his abdomen and pelvis to evaluate. He has potassium running. Has been given 40 mg IV Protonix. Is currently on her second liter of fluid. The patient requested some Ativan. He is on Ativan 0.5 mg 3 times a day. I'll give him 0.5 mg IV. Of note orthostatics are noted incorrectly in this chart. Supine blood pressure was 99/59 and a standing blood pressure 74/43. 06/12/17 01:26 Patient was given a second dose of IV Ativan around 12:[address] results have returned. I reviewed the labs and imaging with the patient and his . I feel he would be a good candidate for admission for alcohol withdrawal as well as treatment of hypotension. Patient and are in agreement. I discussed the case with Dr. Martinez, hospitalist on-call. He agrees to the admission. As I discussed with them disposition after hospital. I informed the patient has that during his hospital stay he will likely see Dr. Goldstein and Lamonte [facility]. Disposition from the hospital could include going home and following outpatient care, Possibly go to an inpatient facility like [facility] for inpatient care. Possibly would require committal or emergency custodial. Patient and express understanding of this. They are in agreement coming to the hospital for care. Departure - Departure Time of Disposition: 01:00 Disposition: Admitted As Inpatient 64 Condition: Fair Clinical Impression: Alcohol abuse, Hypomagnesemia, Hypokalemia, Elevated transaminase level, Elevated lipase, Alcohol withdrawal Hypotension Qualifiers: Hypotension type: unspecified hypotension type Qualified Code(s): I95.9 - Hypotension, unspecified Referrals: John Ball MD [Primary Care Provider] - Forms: ED Department Discharge Additional Instructions: Patient admitted to the ICU under Dr. Martinez for alcohol withdrawl. - My Orders Last 24 Hours: My Active Orders 06/11/17 19:57 Peripheral IV Insertion Adult [OM.PC] Routine 06/11/17 19:58 Peripheral IV Care [RC] . DIRECTED Sodium Chloride 0.9% [Saline Flush] 10 ml FLUSH ASDIRECTED PRN 06/11/17 19:59 EKG Documentation Completion [RC] ASDIRECTED Chest 1V Frontal [CR] Stat EKG 12 Lead [EK] Stat 06/11/17 20:00 Cardiac Monitoring [RC] . DIRECTED 06/11/17 20:11 Orthostatic Vital Signs [RC] ASDIRECTED 06/11/17 20:14 PATIENT RETYPE [BBK] Stat TYPE AND SCREEN [BBK] Stat 06/11/17 20:39 Guaiac [OCCULT BLOOD DIAGNOSTIC] [OP] Stat 06/11/17 20:40 Hemoccult [Fecal Occult Blood Collection] [RC] ASDIRECTED 06/11/17 21:04 Abdomen Pelvis w Cont [CT] Stat Head wo Cont [CT] Stat 06/11/17 21:15 Potassium Chloride [KCl 10 MEQ in Water 100 ML] 10 meq Premix Bag 1 bag IV ASDIRECTED 06/12/17 00:29 Lactated Ringers [Ringers, Lactated] 1,000 ml IV .BOLUS - Assessment/Plan Last 24 Hours: My Active Orders 06/11/17 19:57 Peripheral IV Insertion Adult [OM.PC] Routine 06/11/17 19:58 Peripheral IV Care [RC] . DIRECTED Sodium Chloride 0.9% [Saline Flush] 10 ml FLUSH ASDIRECTED PRN 06/11/17 19:59 EKG Documentation Completion [RC] ASDIRECTED Chest 1V Frontal [CR] Stat EKG 12 Lead [EK] Stat 06/11/17 20:00 Cardiac Monitoring [RC] . DIRECTED 06/11/17 20:11 Orthostatic Vital Signs [RC] ASDIRECTED 06/11/17 20:14 PATIENT RETYPE [BBK] Stat TYPE AND SCREEN [BBK] Stat 06/11/17 20:39 Guaiac [OCCULT BLOOD DIAGNOSTIC] [OP] Stat 06/11/17 20:40 Hemoccult [Fecal Occult Blood Collection] [RC] ASDIRECTED 06/11/17 21:04 Abdomen Pelvis w Cont [CT] Stat Head wo Cont [CT] Stat 06/11/17 21:15 Potassium Chloride [KCl 10 MEQ in Water 100 ML] 10 meq Premix Bag 1 bag IV ASDIRECTED 06/12/17 00:29 Lactated Ringers [Ringers, Lactated] 1,000 ml IV .BOLUS
[2017-06-11] MEDS ORDERED: Pantoprazole 40 MG Vial IVPUSH ONE (20:30)
[2017-06-11] MEDS ORDERED: LORazepam 2 MG/ML SDV IVPUSH ONE (20:42)
[2017-06-11] MEDS ORDERED: Potassium Chloride 10 MEQ in Premix Bag 1 BAG IV SCH (21:15)
[2017-06-12] MEDS ORDERED: LORazepam 2 MG/ML SDV IVPUSH ONE (00:17)
[2017-06-12] MEDS ORDERED: Lactated Ringers 1,000 ML IV ONE (00:29)
[2017-06-12] MEDS ORDERED: HYDROmorphone 1 MG/ML Syringe IVPUSH PRN (00:52)
[2017-06-12] MEDS ORDERED: Ondansetron 4 MG/2 ML SDV IV PRN (00:52)
[2017-06-12] MEDS ORDERED: Metoprolol Tartrate 5 MG/5 ML SDV IVPUSH PRN (00:52)
[2017-06-12] MEDS ORDERED: oxyCODONE 5 MG Tab PO PRN (00:52)
[2017-06-12] MEDS ORDERED: Promethazine 12.5 MG in Sodium Chloride 0.9% 50 ML IV PRN (00:52)
[2017-06-12] MEDS ORDERED: hydrALAZINE 20 MG/ML SDV IVPUSH PRN (00:52)
[2017-06-12] MEDS ORDERED: LORazepam 2 MG/ML SDV IVPUSH PRN (00:52)
[2017-06-12] MEDS ORDERED: Ibuprofen 600 MG Tab PO PRN (00:52)
[2017-06-12] MEDS ORDERED: Bisacodyl 5 MG Tab PO PRN (00:55)
[2017-06-12] MEDS ORDERED: Albuterol/Ipratropium 3.0-0.5 MG/3 ML Neb Soln NEB PRN (00:55)
[2017-06-12] MEDS ORDERED: Docusate Sodium 100 MG Cap PO PRN (00:55)
[2017-06-12] MEDS ORDERED: Polyethylene Glycol 3350 Powder 17 GM Packet PO PRN (00:55)
[2017-06-12] MEDS ORDERED: Folic Acid 50 MG/10 ML MDV SUBCUT ONE (00:57)
[2017-06-12] MEDS ORDERED: cloNIDine 0.1 MG Tab PO PRN (00:57)
[2017-06-12] MEDS ORDERED: Haloperidol Lactate 5 MG/ML SDV IM PRN (00:57)
[2017-06-12] MEDS ORDERED: Multivitamins,Therapeutic Tab PO ONE (00:57)
[2017-06-12] MEDS ORDERED: QUEtiapine 25 MG Tab PO ONE (01:00)
[2017-06-12] MEDS ORDERED: Topiramate 25 MG Tab PO STA (01:01)
--- NOTE | 2017-06-12 01:04 | PCM.HP ---
H&P History of Present Illness - General Date of Service: 06/12/17 Admit Problem/Dx: Alcohol Withdrawal Source of Information: Patient, Old Records, Provider, RN Notes Reviewed History Limitations: Reports: Altered Mental Status - History of Present Illness Initial Comments - Free Text/Narative: This is a 51 yo white male with past medical hx/o HTN, HLD, Nicotine Dependence , Anxiety and Depression who was brought for evaluation of hypotension. EMS was called refused services. He came in instead via private vehicle. Patient reports associated dizziness, fatigues, and diarrhea. He also admits to having black tarry stools. He denies any other GI issues. He further denies any SOB, chest pain, fever or chills. Patient carries a hx/o chronic alcohol abuse. He was seen in ED on the May for alcoholism. He was treated and then referred to [facility] for chemical rehab. Unfortunately, patient dis not show and he continued to drink alcohol heavily with 3-6 shots a day of vodka. He has been doing this for the past few months. Today, he took 2 shots of vodka and decided to show up at [facility]. While at [facility], he fell but suffered no LOC or trauma. His initial work up in ED shows a CBC that is remarkable for WBC of 3.77, RBC of 4.41, MCV of 94.8, MCH of 32.7, RDW 14.7, platelet of 108, neutrophils of 76% and lymphocytes of 18%. His coagulation study shows PT of 10.1, INR of 0.93, and a PTT of 24. His chemistry is remarkable for sodium (35, potassium 3, chloride of 95, anion gap 19, glucose 153, magnesium 1.5, total bilirubin 1.5, AST of 245, ALT of 29, total protein of 6.3, albumin of 3, and lipase of 2,223. His UA is not suggestive for UTI but positive for 3+ protein, +1 ketones, 2+ bilirubin and 4 urobilinogen. His UDS is positive for benzodiazepines. Blood ETOH level of 0.04. Chest x-ray showed no acute abnormal findings. Head CT scan showed no acute intracranial abnormalities. Abdominal/pelvic CT scan showed no acute abnormal findings but noted for mild hepatomegaly and fatty infiltration. Patient is being admitted primarily for ETOH detoxification and hypotension. He is full code. Generalized Pain Score (Numeric/FACES): 3 - Related Data Allergies/Adverse Reactions: Allergies Allergy/AdvReac Type Severity Reaction Status Date / Time Penicillins Allergy Cannot Verified 06/11/17 19:48 Remember Home Medications: Home Meds Ascorbic Acid 500 mg PO DAILY 06/09/17 [History] Aspirin [Adult Low Dose Aspirin EC] 81 mg PO DAILY 06/09/17 [History] Bisoprolol/Hydrochlorothiazide [Bisoprolol/HCTZ 5-6.25 MG] 1 tab PO DAILY [History] Cyanocobalamin (Vitamin B-12) [Vitamin B-12] 100 mcg PO DAILY 06/09/17 [History] LORazepam [Ativan] 0.5 mg PO TID 06/09/17 [History] Losartan Potassium 100 mg PO DAILY 06/09/17 [History] Pravastatin Sodium 20 mg PO DAILY 06/09/17 [History] Varenicline Tartrate [Chantix] 1 mg PO BID 06/09/17 [History] amLODIPine Besylate [Amlodipine Besylate] 5 mg PO DAILY 06/09/17 [History] buPROPion [Wellbutrin SR] 150 mg PO BID 06/09/17 [History] Past Medical History Cardiovascular History: Reports: High Cholesterol, Hypertension Psychiatric History: Reports: Addiction Social & Family History - Tobacco Use Smoking Status *Q: Current Every Day Smoker Years of Tobacco use: 20 Packs/Tins Daily: 0.5 Used Tobacco, but Quit: No Tobacco Use Comment: pt on nicotine patch Second Hand Smoke Exposure: No - Caffeine Use Caffeine Use: Reports: None - Alcohol Use Days Per Week of Alcohol Use: 7 Number of Drinks Per Day: 6 Total Drinks Per Week: 42 Date of Last Drink: 06/11/17 - Recreational Drug Use Recreational Drug Use: No H&P Review of Systems - Review of Systems: Review Of Systems: See Below General: Denies: Fever, Chills, Malaise, Weakness, Fatigue, Diaphoresis, Decreased Appetite Pulmonary: Denies: Shortness of Breath Cardiovascular: Reports: Lightheadedness, Blood Pressure Problem. Denies: Chest Pain Gastrointestinal: Reports: Melena. Denies: Abdominal Pain, Decreased Appetite, Nausea, Vomiting Genitourinary: Reports: No Symptoms Musculoskeletal: Reports: No Symptoms Skin: Denies: Cyanosis, Mottled, Pallor, Diaphoresis, Pruritis, Rash, Erythema, Wound Psychiatric: Denies: Depression, Anxiety, Agitation, Cravings, Hallucinations, Suicidal Ideation Neurological: Reports: Syncope, Gait Disturbance. Denies: Confusion, Pre- Existing Deficit, Seizure, Difficulty Walking, Weakness Hematologic/Lymphatic: Reports: No Symptoms Immunologic: Reports: No Symptoms Exam - Exam Exam: See Below - Vital Signs Vital Signs: Last Vital Signs Temp 36.6 C 06/11/17 19:43 Pulse 91 06/11/17 19:43 Resp 21 H 06/11/17 19:43 BP 93/63 06/11/17 19:43 Pulse Ox 96 06/11/17 19:43 Weight: 68.039 kg - Exam General: Alert HEENT: Conjunctiva Clear, EACs Clear, Hearing Intact, Mucosa Moist & [place], Nares Patent, Normal Nasal Septum, Posterior Pharynx Clear, Pupils Equal, Pupils Reactive. No: EOMI Neck: Supple, Trachea Midline, +2 Carotid Pulse wo Bruit Lungs: Clear to Auscultation, Normal Respiratory Effort Cardiovascular: Regular Rate, Regular Rhythm GI/Abdominal Exam: Normal Bowel Sounds, Soft, Non-Tender, No Organomegaly, No Distention, No Abnormal Bruit, No Mass, Hepatomegaly (mildly enlarged) (Male) Exam: Deferred Rectal (Males) Exam: Deferred Back Exam: Normal Inspection, Decreased Range of Motion Extremities: Normal Inspection, Normal Range of Motion, Non-Tender, No Pedal Edema, Normal Capillary Refill Peripheral Pulses: 3+: Posterior Tibial (L), Posterior Tibial (R), Dorsalis Pedis (L), Dorsalis Pedis (R) Skin: Warm, Dry, Intact Neuro Extensive - Mental Status: Oriented x3, Normal Cognition, Memory Intact Neuro Extensive - Motor, Sensory, Reflexes: CN II-XII Intact (limited duet ), Abnormal Gait Psychiatric: Alert, Normal Affect, Anxious, Withdrawal Symptoms. No: Suicidal Ideation, Homicidal Ideation, Hallucinations - Patient Data Result Diagrams: 06/12/17 05:50 06/12/17 05:50 EKG INTERPRETATION EKG Date: 06/11/17 Time: 20:30 Rhythm: NSR Rate (Beats/Min): 86 [place]: Normal P-Wave: Present QRS: Normal ST-T: Normal QT: Prolonged (QTC of 509) Comparison: NA - No Prior EKG *Q Meaningful Use (ADM) - VTE *Q VTE Criteria *Q: - Stroke *Q Stroke Criteria *Q: - AMI *Q AMI Criteria *Q: Problem List Initiated/Reviewed/Updated: Yes Orders Last 24hrs: Active Orders 24 hr Category Date Time Status Antiembolic Devices [RC] PER UNIT ROUTINE Care 06/12/17 00:55 Ordered CIWAA Assessment [RC] Q15M Care 06/12/17 00:57 Ordered CIWAA Assessment [RC] Q1H Care 06/12/17 00:57 Ordered CIWAA Assessment [RC] Q30M Care 06/12/17 00:57 Ordered CIWAA Assessment [RC] Q4H Care 06/12/17 00:57 Ordered Cardiac Monitoring [RC] CONTINUOUS Care 06/12/17 00:53 Ordered Height and Weight [RC] DAILY Care 06/12/17 00:52 Ordered Intake and Output [RC] QSHIFT Care 06/12/17 00:52 Ordered Notify Provider Consults [RC] ASDIRECTED Care 06/12/17 00:57 Ordered Notify Provider [RC] PRN Care 06/12/17 00:57 Ordered Oxygen Therapy [RC] PRN Care 06/12/17 00:52 Ordered RT Aerosol Therapy [RC] ASDIRECTED Care 06/12/17 00:55 Ordered Up With Assistance [RC] ASDIRECTED Care 06/12/17 00:52 Ordered Up ad Brooke [RC] ASDIRECTED Care 06/12/17 00:52 Ordered VTE/DVT Education [RC] PER UNIT ROUTINE Care 06/12/17 00:52 Ordered Vital Signs [RC] Q4H Care 06/12/17 00:52 Ordered Consult to Case Management [CONS] Routine Cons 06/12/17 00:56 Ordered Consult to Physician [CONS] Routine Cons 06/12/17 00:56 Ordered Consult to Food Science Professor [CONS] Routine Cons 06/12/17 00:56 Ordered Consult to Spiritual Care [CONS] Routine Cons 06/12/17 00:56 Ordered Regular Diet [DIET] Diet 06/12/17 Breakfast Ordered BASIC METABOLIC PANEL,BMP [CHEM] AM Lab 06/12/17 05:11 Ordered BASIC METABOLIC PANEL,BMP [CHEM] AM Lab 06/13/17 05:11 Ordered BASIC METABOLIC PANEL,BMP [CHEM] AM Lab 06/14/17 05:11 Ordered BASIC METABOLIC PANEL,BMP [CHEM] AM Lab 06/15/17 05:11 Ordered BASIC METABOLIC PANEL,BMP [CHEM] AM Lab 06/16/17 05:11 Ordered CBC WITH AUTO DIFF [HEME] AM Lab 06/12/17 05:11 Ordered CBC WITH AUTO DIFF [HEME] AM Lab 06/13/17 05:11 Ordered CBC WITH AUTO DIFF [HEME] AM Lab 06/14/17 05:11 Ordered CBC WITH AUTO DIFF [HEME] AM Lab 06/15/17 05:11 Ordered CBC WITH AUTO DIFF [HEME] AM Lab 06/16/17 05:11 Ordered MAGNESIUM [CHEM] AM Lab 06/12/17 05:11 Ordered MAGNESIUM [CHEM] AM Lab 06/13/17 05:11 Ordered MAGNESIUM [CHEM] AM Lab 06/14/17 05:11 Ordered MAGNESIUM [CHEM] AM Lab 06/15/17 05:11 Ordered MAGNESIUM [CHEM] AM Lab 06/16/17 05:11 Ordered Albuterol/Ipratropium [DuoNeb 3.0-0.5 MG/3 ML] Med 06/12/17 00:55 Ordered 3 ml NEB Q4H PRN Ascorbic Acid [Vitamin C] Med 06/12/17 09:00 Ordered 500 mg PO DAILY Aspirin [Halfprin] Med 06/12/17 09:00 Ordered 81 mg PO DAILY Bisacodyl [Dulcolax] Med 06/12/17 00:55 Ordered 5 mg PO DAILY PRN Bisoprolol/Hydrochlorothiazide Med 06/12/17 09:00 Ordered 1 tab PO DAILY Cyanocobalamin (Vitamin B-12) Med 06/12/17 09:00 Ordered 100 mcg PO DAILY Docusate Sodium [Colace] Med 06/12/17 00:55 Ordered 100 mg PO BID PRN Docusate Sodium/Sennosides [Senna Plus] Med 06/12/17 00:55 Ordered 1 tab PO BID PRN Folic Acid Med 06/13/17 09:00 Ordered 1 mg PO DAILY Folic Acid Med 06/12/17 00:57 Once 1 mg SUBCUT ONETIME ONE HYDROmorphone [Dilaudid] Med 06/12/17 00:52 Ordered 0.5 mg IVPUSH Q2H PRN Haloperidol Lactate [Haldol] Med 06/12/17 00:57 Ordered 2 mg IM Q4H PRN Ibuprofen [Motrin] Med 06/12/17 00:52 Ordered 600 mg PO Q6H PRN LORazepam [Ativan] Med 06/12/17 09:00 Ordered 0.5 mg PO TID LORazepam [Ativan] Med 06/12/17 00:52 Ordered 2 mg IVPUSH Q4H PRN LORazepam [Ativan] Med 06/12/17 00:52 Ordered See Protocol IVPUSH Q4H PRN Losartan [Cozaar] Med 06/12/17 09:00 Ordered 100 mg PO DAILY Magnesium Rep Pharmacy to Dose [Pharmacy to Dose - Med 06/12/17 01:00 Ordered Magnesium Replacement] 1 dose .XX ASDIRECTED Metoprolol Tartrate [Lopressor] Med 06/12/17 00:52 Ordered 5 mg IVPUSH Q4H PRN Multivitamins,Therapeutic [Thera] Med 06/12/17 00:57 Once 1 each PO ONETIME ONE Nicotine [Habitrol] Med 06/12/17 09:00 Ordered 21 mg TRDERM DAILY Ondansetron [Zofran] Med 06/12/17 00:52 Ordered 4 mg IV Q6H PRN Pantoprazole [ProTONIX IV] Med 06/12/17 09:00 Ordered 40 mg IV Q12HR Polyethylene Glycol 3350 [MiraLAX] Med 06/12/17 00:55 Ordered 17 gm PO DAILY PRN Potassium Rep Pharmacy to Dose [Pharmacy to Dose - Med 06/12/17 01:00 Ordered Potassium Replacement] 1 dose .XX ASDIRECTED Pravastatin Sodium Med 06/12/17 09:00 Ordered 20 mg PO DAILY Promethazine [Phenergan] 12.5 mg Med 06/12/17 00:52 Ordered Sodium Chloride 0.9% [Normal Saline] 50 ml IV Q6H QUEtiapine [SEROquel] Med 06/12/17 21:00 Ordered 50 mg PO BEDTIME QUEtiapine [SEROquel] Med 06/12/17 01:00 Once 50 mg PO ONETIME ONE Thiamine [Vitamin B-1] Med 06/13/17 09:00 Ordered 100 mg PO DAILY Thiamine [Vitamin B-1] 200 mg Med 06/12/17 00:57 Ordered Sodium Chloride 0.9% [Normal Saline] 50 ml IV ONETIME Topiramate [Topamax] Med 06/12/17 21:00 Ordered 25 mg PO BID Topiramate [Topamax] Med 06/12/17 01:01 Stat 25 mg PO NOW STA Varenicline Tartrate [Chantix] Med 06/12/17 09:00 Ordered 1 mg PO BID amLODIPine [Norvasc] Med 06/12/17 09:00 Ordered 5 mg PO DAILY buPROPion Med 06/12/17 09:00 Ordered 150 mg PO BID cloNIDine [Catapres] Med 06/12/17 00:57 Ordered 0.1 mg PO Q4H PRN hydrALAZINE [Apresoline] Med 06/12/17 00:52 Ordered 20 mg IVPUSH Q4H PRN oxyCODONE Med 06/12/17 00:52 Ordered 5 mg PO Q4H PRN Seizure Precautions [OM.PC] Routine Oth 06/12/17 00:57 Ordered Sequential Compression Device [OM.PC] Per Unit Routine Oth 06/12/17 00:54 Ordered Resuscitation Status Routine Resus Stat 06/12/17 00:52 Ordered Medication Orders Potassium Chloride 10 meq/ (Premix) 100 mls @ 100 mls/hr IV ASDIRECTED LINO Last Admin: 06/11/17 21:24 Dose: 100 mls/hr Lactated Ringer's (Ringers, Lactated) 1,000 mls @ 100 mls/hr IV .BOLUS ONE Stop: 06/12/17 10:28 Last Admin: 06/12/17 00:46 Dose: 100 mls/hr Sodium Chloride (Saline Flush) 10 ml FLUSH ASDIRECTED PRN PRN Reason: Keep Vein Open Last Admin: 06/11/17 20:26 Dose: 10 ml Assessment/Plan Comment:: Assessment: Acute: Orthostatic Hypotension - Documented BPs of Standing 99/59, Sitting 93/60 and Supine 74/43 mmHg - 2/2 Volume Depletion from poor oral intake - IVF and monitor Hgb level ETOH Withdrawal Symptoms - SADE level of 0.04 - WA protocol: CIWA score is markedly elevated - Ativan/Seroquel/Clonidine/Topamax - Hydralazine and IVP BB for HR/BP control - Ativan for Abortive Seizure and Withdrawal Symptoms Chronic ETOH Abuse - [facility] protocol - Ativan/Librium PRN Alcohol Hepatitis - AST 245 and AST 209 - Supportive Care - Avoid Tylenol for now Alcohol Pancreatitis - Lipase 2,223 - 2/2 ETOH Abuse - Supportive Care - NPO for now except ice chips, sips of water and medications` Tobacco Dependence - Nicotine patch - Counseled on Smoking Cessation Mild Hypokalemia - K 3.0 - 2/2 inadequate intake - Replete and monitor Mid Hypomagnesemia - MG 1.5 - 2/2 inadequate intake - Replete and monitor Diarrhea - Watery - Had oral contrast with Abn/Pelvis CT scan - Consider C. diff test if he remains symptomatic Abnormal Abn/Pelvis CT Scan Findings - Fatty Liver Infiltration - Mild Hepatomegaly Plan: Admit to ICU LR 1L at 150 cc/hr MVI, Folic Acid and Thiamine CIWA protocol A1C in for AM labs to r/o acquired diabetes Ativan for Abortive Seizure and Withdrawal Symptoms PRN meds for Withdrawal Symptoms Aspiration/Seizure Precautions SW/CM d/c planning SA/Psych consult Code Status: 1
[2017-06-12] MEDS ORDERED: Potassium Chloride 20 MEQ Tab.ER PO STA (01:12)
[2017-06-12] MEDS ORDERED: Magnesium Sulfate/Water 4 GM in Premix Bag 1 BAG IV ONE (01:14)
[2017-06-12] MEDS ORDERED: Lactated Ringers 1,000 ML IV SCH (01:15)
[2017-06-12] MEDS ORDERED: Dextrose 5%-0.9% NaCl 1,000 ML IV ONE (01:42)
[2017-06-12] MEDS: chlordiazePOXIDE 25 MG Cap PO PRN ×3 (02:45→19:53)
[2017-06-12] MEDS: Magnesium Sulfate/Water 2 GM in Premix Bag 1 BAG IV SCH ×2 (04:08→05:11)
[2017-06-12] MEDS: LORazepam 2 MG/ML SDV IVPUSH PRN (05:58)
--- NOTE | 2017-06-12 07:26 | CT ---
Head CT Technique: Multiple axial sections through the brain were obtained. Intravenous contrast was not utilized. Comparison: No previous intracranial imaging. Findings: Ventricles along with basal cisterns and sulci over the convexities are mildly prominent. No abnormal parenchymal densities are seen. No evidence of intracranial hemorrhage. No midline shift or mass effect is seen. Bone window settings were reviewed which show no acute calvarial abnormality. Visualized sinuses are clear. Impression: 1. Mild generalized atrophy. 2. No acute intracranial abnormality is identified on noncontrast head CT exam. Diagnostic code #2 I agree with preliminary report issued by [facility] ([facility] preliminary report dictated on 06/12/17, 12:23 AM Central Time)
--- NOTE | 2017-06-12 07:26 | CR ---
Chest: Portable view of the chest was obtained. Comparison: No prior study. Heart size and mediastinum are normal. Lungs are clear. Bony structures appear grossly intact. Impression: 1. Nothing acute is identified on portable chest x-ray. Diagnostic code #1
--- NOTE | 2017-06-12 07:26 | CT ---
CT abdomen and pelvis Technique: Multiple axial sections were obtained from above the dome of the diaphragm inferiorly through the pubic symphysis. Intravenous contrast and oral contrast has been given. Delayed images were also obtained through the abdomen and pelvis. Comparison: No prior abdominal imaging. Findings: Visualized lung bases show nothing acute. Liver is diffusely enlarged with prominent fatty infiltration. Spleen appears within normal limits. Adrenal glands show no nodule. Pancreas is normal. Kidneys show symmetric contrast enhancement without hydronephrosis or mass. Slight increased density around both kidneys is seen most likely chronic. Aorta and iliac vessels show atherosclerotic change without aneurysm. No retroperitoneal adenopathy or mesenteric abnormalities are seen. Appendix is seen which is normal. No pelvic mass or adenopathy is seen. Small fat-containing bilateral inguinal hernias are incidentally noted. Diffuse degenerative change is noted within the spine. Impression: 1. Prominent fatty infiltration within the liver with mild hepatomegaly. 2. Other incidental findings as noted above. Nothing acute is appreciated. Diagnostic code #3 Agree with preliminary report issued by [email or web address] ([facility] preliminary report dictated on 06/12/17, 12:21 AM Central Time)
--- NOTE | 2017-06-12 08:28 | PCM.PN ---
- General Info Date of Service: 06/12/17 Admission Dx/Problem (Free Text): Alcohol Withdrawal Subjective Update: Follow Up Functional Status: Reports: Pain Controlled, Ambulating, Urinating. Denies: New Symptoms - Review of Systems General: Denies: Fever, Weakness, Fatigue, Malaise, Chills HEENT: Reports: No Symptoms Pulmonary: Denies: Shortness of Breath Cardiovascular: Denies: Chest Pain Gastrointestinal: Reports: Flatus. Denies: Abdominal Pain, Constipation, Decreased Appetite, Diarrhea, Difficulty Swallowing, Nausea, Vomiting Genitourinary: Reports: No Symptoms Musculoskeletal: Reports: No Symptoms Skin: Reports: No Symptoms Neurological: Denies: Confusion, Difficulty Walking, Weakness, Gait Disturbance Psychiatric: Denies: Depression, Anxiety, Agitation, Hallucinations, Homicidal Ideation Systems Review Comment:: No overnight or acute issues. He is doing just fine this morning. His CIWA score is 2. His lipase is 1877 this morning. - Patient Data Vitals - Most Recent: Last Vital Signs Temp 36.6 C 06/12/17 08:00 Pulse 86 06/12/17 08:00 Resp 21 H 06/12/17 08:00 BP 106/74 06/12/17 08:00 Pulse Ox 94 L 06/12/17 08:00 Weight - Most Recent: 68.039 kg I&O - Last 24 Hours: Intake & Output 06/11/17 06/12/17 06/12/17 22:59 06:59 14:59 Intake Total 200 Output Total 200 Balance 0 Lab Results Last 24 Hours: Laboratory Results - last 24 hr 06/12/17 06/12/17 Range/Units 05:50 05:50 WBC 3.86 L (4.23-9.07) K/mm3 RBC 3.90 L (4.63-6.08) M/mm3 Hgb 12.8 L (13.7-17.5) gm/L Hct 37.7 L (40.1-51.0) % MCV 96.7 H (79.0-92.2) fl MCH 32.8 H (25.7-32.2) pg MCHC 34.0 (32.2-35.5) g/dl RDW Std Deviation 51.5 H (35.1-43.9) fL Plt Count 93 L (163-337) K/mm3 MPV 12.0 (9.4-12.3) fl Neut % (Auto) 65.7 (34.0-67.9) % Lymph % (Auto) 21.8 (21.8-53.1) % Williams % (Auto) 9.3 (5.3-12.2) % Eos % (Auto) 1.6 (0.8-7.0) Baso % (Auto) 0.8 (0.1-1.2) % Neut # (Auto) 2.54 (1.78-5.38) K/mm3 Lymph # (Auto) 0.84 L (1.32-3.57) K/mm3 Williams # (Auto) 0.36 (0.30-0.82) K/mm3 Eos # (Auto) 0.06 (0.04-0.54) K/mm3 Baso # (Auto) 0.03 (0.01-0.08) K/mm3 Manual Slide Review Abnormal smear Sodium 135 L (136-145) mEq/L Potassium 4.0 (3.5-5.1) mEq/L Chloride 100 (98-107) mEq/L Carbon Dioxide 24 (21-32) mEq/L Anion Gap 15.0 (5-15) BUN 16 (7-18) mg/dL Creatinine 2.0 H (0.7-1.3) mg/dL Est Cr Clr Drug Dosing 30.21 mL/min Estimated GFR (MDRD) 35 (>60) mL/min BUN/Creatinine Ratio 8.0 L (14-18) Glucose 100 (74-106) mg/dL Calcium 8.2 L (8.5-10.1) mg/dL Magnesium 3.3 H (1.8-2.4) mg/dl Lipase 1877 H (73-393) U/L Med Orders - Current: Current Medications Albuterol/Ipratropium (Duoneb 3.0-0.5 Mg/3 Ml) 3 ml NEB Q4H PRN PRN Reason: Shortness Of Breath/wheezing Amlodipine Besylate (Norvasc) 5 mg PO DAILY LINO Ascorbic Acid (Vitamin C) 500 mg PO DAILY LINO Aspirin (Halfprin) 81 mg PO DAILY LINO Atenolol (Tenormin) 50 mg PO DAILY LINO Bisacodyl (Dulcolax) 5 mg PO DAILY PRN PRN Reason: Constipation Chlordiazepoxide HCl (Librium) 25 mg PO QID PRN PRN Reason: Withdrawal Symptoms Last Admin: 06/12/17 02:45 Dose: 25 mg Clonidine HCl (Catapres) 0.1 mg PO Q4H PRN PRN Reason: Agitation Docusate Sodium (Colace) 100 mg PO BID PRN PRN Reason: Constipation Folic Acid (Folic Acid) 1 mg PO DAILY [facility] Stop: 06/15/17 09:01 Haloperidol Lactate (Haldol) 2 mg IM Q4H PRN PRN Reason: Agitation Hydralazine HCl (Apresoline) 20 mg IVPUSH Q4H PRN PRN Reason: Hypertension Hydrochlorothiazide (Hydrochlorothiazide) 25 mg PO DAILY [facility] Hydromorphone HCl (Dilaudid) 0.5 mg IVPUSH Q2H PRN PRN Reason: Pain (severe 7-10) Promethazine HCl 12.5 mg/ (Sodium Chloride) 50.5 mls @ 100 mls/hr IV Q6H PRN PRN Reason: Nausea/Vomiting Lactated Ringer's (Ringers, Lactated) 1,000 mls @ 150 mls/hr IV ASDIRECTED [facility] Last Admin: 06/12/17 04:10 Dose: 150 mls/hr Ibuprofen (Motrin) 600 mg PO Q6H PRN PRN Reason: Pain (moderate 4-6) Lorazepam (Ativan) 2 mg IVPUSH Q4H PRN PRN Reason: Seizures Lorazepam (Ativan) 0 mg IVPUSH Q4H PRN; Protocol PRN Reason: Withdrawal Symptoms Last Admin: 06/12/17 05:58 Dose: 1 mg Lorazepam (Ativan) 0.5 mg PO TID [facility] Losartan Potassium (Cozaar) 100 mg PO DAILY [facility] Magnesium Sulfate (Pharmacy To Dose - Magnesium Replacement) 0 dose .XX ASDIRECTED PRN PRN Reason: RX TO WATCH MAG LEVELS Metoprolol Tartrate (Lopressor) 5 mg IVPUSH Q4H PRN PRN Reason: Tachycardia Miscellaneous Information (Remove Patch) 0 ea TRDERM DAILY [facility] Nicotine (Habitrol) 21 mg TRDERM DAILY [facility] Non-Formulary Medication (Bupropion) 150 mg PO BID [facility] Non-Formulary Medication (Cyanocobalamin (Vitamin B-12)) 100 mcg PO DAILY [facility] Non-Formulary Medication (Pravastatin Sodium) 20 mg PO DAILY [facility] Ondansetron HCl (Zofran) 4 mg IV Q6H PRN PRN Reason: Nausea/Vomiting Last Admin: 06/12/17 02:22 Dose: 4 mg Oxycodone HCl (Oxycodone) 5 mg PO Q4H PRN PRN Reason: Pain (moderate 4-6) Pantoprazole Sodium (Protonix Iv) 40 mg IV Q12HR [facility] Stop: 06/14/17 09:00 Polyethylene Glycol (Miralax) 17 gm PO DAILY PRN PRN Reason: Constipation Potassium Chloride (Pharmacy To Dose - Potassium Replacement) 0 dose .XX ASDIRECTED PRN PRN Reason: RX TO WATCH K LEVELS Quetiapine Fumarate (Seroquel) 50 mg PO BEDTIME [facility] Senna/Docusate Sodium (Senna Plus) 1 tab PO BID PRN PRN Reason: Constipation Sodium Chloride (Saline Flush) 10 ml FLUSH ASDIRECTED PRN PRN Reason: Keep Vein Open Last Admin: 06/11/17 20:26 Dose: 10 ml Thiamine HCl (Vitamin B-1) 100 mg PO DAILY [facility] Topiramate (Topamax) 25 mg PO BID LINO Discontinued Medications Folic Acid (Folic Acid) 1 mg SUBCUT ONETIME ONE Stop: 06/12/17 00:58 Last Admin: 06/12/17 02:20 Dose: 1 mg Sodium Chloride (Normal Saline) 1,000 mls @ 999 mls/hr IV ONETIME ONE Stop: 06/11/17 20:57 Last Admin: 06/11/17 20:25 Dose: 999 mls/hr Potassium Chloride 10 meq/ (Premix) 100 mls @ 100 mls/hr IV ASDIRECTED [facility] Last Admin: 06/11/17 21:24 Dose: 100 mls/hr Sodium Chloride (Normal Saline) 1,000 mls @ 999 mls/hr IV ONETIME ONE Stop: 06/11/17 22:03 Last Admin: 06/11/17 21:27 Dose: 999 mls/hr Lactated Ringer's (Ringers, Lactated) 1,000 mls @ 100 mls/hr IV .BOLUS ONE Stop: 06/12/17 10:28 Last Admin: 06/12/17 00:46 Dose: 100 mls/hr Thiamine HCl 200 mg/ Sodium (Chloride) 52 mls @ 100 mls/hr IV ONETIME ONE Stop: 06/12/17 01:27 Last Admin: 06/12/17 02:21 Dose: 100 mls/hr Magnesium Sulfate 4 gm/ Premix 100 mls @ 100 mls/hr IV ONETIME ONE Stop: 06/12/17 02:13 Last Admin: 06/12/17 03:21 Dose: Not Given Dextrose/Sodium Chloride (Dextrose 5%-Normal Saline) 1,000 mls @ 999 mls/hr IV ONETIME ONE Stop: 06/12/17 02:42 Last Admin: 06/12/17 04:10 Dose: Not Given Magnesium Sulfate 2 gm/ Premix 50 mls @ 50 mls/hr IV Q2H [facility] Stop: 06/12/17 04:59 Last Admin: 06/12/17 05:11 Dose: 50 mls/hr Lorazepam (Ativan) 0.5 mg IVPUSH ONETIME ONE Stop: 06/11/17 20:43 Last Admin: 06/11/17 20:47 Dose: 0.5 mg Lorazepam (Ativan) 0.5 mg IVPUSH ONETIME ONE Stop: 06/12/17 00:18 Last Admin: 06/12/17 00:28 Dose: 0.5 mg Multivitamins (Thera) 1 each PO ONETIME ONE Stop: 06/12/17 00:58 Last Admin: 06/12/17 02:22 Dose: 1 each Non-Formulary Medication (Varenicline Tartrate [Chantix]) 1 mg PO BID [facility] Pantoprazole Sodium (Protonix Iv) 40 mg IVPUSH ONETIME ONE Stop: 06/11/17 20:31 Last Admin: 06/11/17 20:48 Dose: 40 mg Potassium Chloride (Klor-Con M20) 60 meq PO NOW STA Stop: 06/12/17 01:13 Last Admin: 06/12/17 02:19 Dose: 60 meq Quetiapine Fumarate (Seroquel) 50 mg PO ONETIME ONE Stop: 06/12/17 01:01 Last Admin: 06/12/17 02:20 Dose: 50 mg Topiramate (Topamax) 25 mg PO NOW STA Stop: 06/12/17 01:02 Last Admin: 06/12/17 02:20 Dose: 25 mg - Exam General: Alert, Oriented, Cooperative, No Acute Distress HEENT: Pupils Equal, Pupils Reactive, EOMI, Mucous Membr. Moist/Levasy Neck: Supple, Trachea Midline, No JVD, No Thyromegaly Lungs: Clear to Auscultation, Normal Respiratory Effort Cardiovascular: Regular Rate, Regular Rhythm GI/Abdominal Exam: Normal Bowel Sounds, Soft, Non-Tender, No Organomegaly, No Distention, No Abnormal Bruit, No Mass, Hepatomegaly. No: Distended, Guarding, Rigid, Rebound, Tender (Male) Exam: Deferred Back Exam: Normal Inspection, Decreased Range of Motion Extremities: Normal Inspection, Normal Range of Motion, Non-Tender, No Pedal Edema, Normal Capillary Refill Peripheral Pulses: 2+: Dorsalis Pedis (L), Dorsalis Pedis (R) Skin: Warm, Dry, Intact Neurological: No New Focal Deficit Psy/Mental Status: Alert, Normal Affect, Normal Mood. No: Anxious, Agitated, Suicidal Ideation, Homicidal Ideation, Hallucinations, Withdrawal Symptoms - Problem List Review Problem List Initiated/Reviewed/Updated: Yes - My Orders Last 24 Hours: My Active Orders 06/12/17 00:52 Height and Weight [RC] 04 Intake and Output [RC] 04,16 Oxygen Therapy [RC] PRN Up With Assistance [RC] ASDIRECTED Up ad Brooke [RC] ASDIRECTED VTE/DVT Education [RC] PER UNIT ROUTINE Vital Signs [RC] Q4HR HYDROmorphone [Dilaudid] 0.5 mg IVPUSH Q2H PRN Ibuprofen [Motrin] 600 mg PO Q6H PRN LORazepam [Ativan] 2 mg IVPUSH Q4H PRN LORazepam [Ativan] See Protocol IVPUSH Q4H PRN Metoprolol Tartrate [Lopressor] 5 mg IVPUSH Q4H PRN Ondansetron [Zofran] 4 mg IV Q6H PRN Promethazine [Phenergan] 12.5 mg Sodium Chloride 0.9% [Normal Saline] 50 ml IV Q6H hydrALAZINE [Apresoline] 20 mg IVPUSH Q4H PRN oxyCODONE 5 mg PO Q4H PRN Resuscitation Status Routine 06/12/17 00:53 Cardiac Monitoring [RC] CONTINUOUS 06/12/17 00:54 Sequential Compression Device [OM.PC] Per Unit Routine 06/12/17 00:55 Antiembolic Devices [RC] BID RT Aerosol Therapy [RC] ASDIRECTED Albuterol/Ipratropium [DuoNeb 3.0-0.5 MG/3 ML] 3 ml NEB Q4H PRN Bisacodyl [Dulcolax] 5 mg PO DAILY PRN Docusate Sodium [Colace] 100 mg PO BID PRN Docusate Sodium/Sennosides [Senna Plus] 1 tab PO BID PRN Polyethylene Glycol 3350 [MiraLAX] 17 gm PO DAILY PRN 06/12/17 00:56 Consult to Case Management [CONS] Routine Consult to Physician [CONS] Routine 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 to 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 Roll 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 [employer] [CONS] Routine Consult to Spiritual Care [CONS] Routine 06/12/17 00:57 CIWAA Assessment [RC] Q1HR Notify Provider Consults [RC] ASDIRECTED Notify Provider [RC] PRN Haloperidol Lactate [Haldol] 2 mg IM Q4H PRN cloNIDine [Catapres] 0.1 mg PO Q4H PRN Seizure Precautions [OM.PC] Routine 06/12/17 01:00 Magnesium Rep Pharmacy to Dose [Pharmacy to Dose - Magnesium Replacement] 0 dose .XX ASDIRECTED PRN Potassium Rep Pharmacy to Dose [Pharmacy to Dose - Potassium Replacement] 0 dose .XX ASDIRECTED PRN 06/12/17 01:08 chlordiazePOXIDE [Librium] 25 mg PO QID PRN 06/12/17 01:15 Lactated Ringers [Ringers, Lactated] 1,000 ml IV ASDIRECTED 06/12/17 01:22 Consult for Substance Abuse [CONS] Routine 06/12/17 02:17 Precautions [COMM] Routine 06/12/17 05:50 A1C [GLYCOSYLATED HEMOGLOBIN,HGBA1C] [CHEM] Routine 06/12/17 09:00 Ascorbic Acid [Vitamin C] 500 mg PO DAILY Aspirin [Halfprin] 81 mg PO DAILY Atenolol [Tenormin] 50 mg PO DAILY Cyanocobalamin (Vitamin B-12) 100 mcg PO DAILY Hydrochlorothiazide 25 mg PO DAILY LORazepam [Ativan] 0.5 mg PO TID Losartan [Cozaar] 100 mg PO DAILY Nicotine [Habitrol] 21 mg TRDERM DAILY Pantoprazole [ProTONIX IV] 40 mg IV Q12HR Pravastatin Sodium 20 mg PO DAILY Remove Patch 0 ea TRDERM DAILY amLODIPine [Norvasc] 5 mg PO DAILY buPROPion 150 mg PO BID 06/12/17 21:00 QUEtiapine [SEROquel] 50 mg PO BEDTIME Topiramate [Topamax] 25 mg PO BID 06/12/17 Breakfast NPO [Nothing Per Oral Diet] [DIET] 06/13/17 05:11 BASIC METABOLIC PANEL,BMP [CHEM] AM CBC WITH AUTO DIFF [HEME] AM MAGNESIUM [CHEM] AM 06/13/17 09:00 Folic Acid 1 mg PO DAILY Thiamine [Vitamin B-1] 100 mg PO DAILY 06/14/17 05:11 BASIC METABOLIC PANEL,BMP [CHEM] AM CBC WITH AUTO DIFF [HEME] AM MAGNESIUM [CHEM] AM 06/15/17 05:11 BASIC METABOLIC PANEL,BMP [CHEM] AM CBC WITH AUTO DIFF [HEME] AM MAGNESIUM [CHEM] AM 06/16/17 05:11 BASIC METABOLIC PANEL,BMP [CHEM] AM CBC WITH AUTO DIFF [HEME] AM MAGNESIUM [CHEM] AM - Plan Plan:: Assessment: Acute: ETOH Withdrawal Symptoms - SADE level of 0.04 - CIWA protocol: CIWA score is 2 - Ativan/Seroquel/Clonidine/Topamax - Hydralazine and IVP BB for HR/BP control - Ativan for Abortive Seizure and Withdrawal Symptoms Chronic ETOH Abuse - CIWA protocol - Ativan/Librium PRN Alcohol Hepatitis - AST 245 and AST 209 - Supportive Care - Avoid Tylenol for now Alcohol Pancreatitis - Lipase 2,223-->1877 - 2/2 ETOH Abuse - Supportive Care - Start clear liquid diet at supper Tobacco Dependence - Nicotine patch - Counseled on Smoking Cessation Abnormal Abn/Pelvis CT Scan Findings - Fatty Liver Infiltration - Mild Hepatomegaly Resolved: S/p Orthostatic Hypotension - Documented BPs of Standing 99/59, Sitting 93/60 and Supine 74/43 mmHg - 2/2 Volume Depletion from poor oral intake - IVF and monitor Hgb level S/p Mid Hypomagnesemia - MG 1.5 - 2/2 inadequate intake - Replete and monitor S/p Diarrhea - Watery - Had oral contrast with Abn/Pelvis CT scan - Consider C. diff test if he remains symptomatic S/p Mild Hypokalemia - K 3.0--> 4.0 - 2/2 inadequate intake - Replete and monitor Plan: He is clinically stable Continue MVI, Folic Acid, Thiamine and CIWA protocol A1C is 5.30 Ativan for Abortive Seizure and Withdrawal Symptoms PRN meds for Withdrawal Symptoms Aspiration/Seizure Precautions SW/CM d/c planning Awaiting SA/Psych consult Code Status: 1
[2017-06-12] MEDS ORDERED: Non-Formulary Medication 1 Each (Pravastatin Sodium 20 MG) PO SCH (09:00)
[2017-06-12] MEDS ORDERED: BUPROPION 150 MG PO SCH (09:00)
[2017-06-12] MEDS ORDERED: Non-Formulary Medication 1 Each (Varenicline Tartrate [Chantix] 1 MG) PO SCH (09:00)
[2017-06-12] MEDS: Aspirin 81 MG Tab.EC PO SCH (09:12)
[2017-06-12] MEDS: Ascorbic Acid 500 MG Tab PO SCH (09:13)
[2017-06-12] MEDS: LORazepam 0.5 MG Tab PO SCH ×3 (09:13→20:03)
[2017-06-12] MEDS: Pantoprazole 40 MG Vial IV SCH ×2 (09:14→20:04)
[2017-06-12] MEDS: Nicotine 21 MG/24 Hr Patch TRDERM SCH (09:15)
[2017-06-12] MEDS: Hydrochlorothiazide 25 MG Tab PO SCH (09:19)
[2017-06-12] MEDS: amLODIPine 5 MG Tab PO SCH (09:19)
[2017-06-12] MEDS: Losartan 100 MG Tab PO SCH (09:19)
[2017-06-12] MEDS: Atenolol 50 MG Tab PO SCH (09:21)
[2017-06-12] MEDS: Cyanocobalamin (Vitamin B-12) 100 MCG PO SCH (09:22)
[2017-06-12] MEDS: Dextrose 5% in Water 1,000 ML IV SCH ×2 (09:30→13:57)
[2017-06-12] MEDS ORDERED: HYDROmorphone 0.5 MG/0.5 ML Syringe IVPUSH PRN (09:37)
--- NOTE | 2017-06-12 17:19 | CONS ---
CONSULTING PHYSICIAN: Gume Goldstein MD DATE OF CONSULTATION: 06/12/2017 IDENTIFICATION: The patient is a 51-year-old male who is admitted to the [facility] MICU on 06/12/2017. He is seen for psychiatric evaluation. CHIEF COMPLAINT: "It is a 28 day program. I went in, the very 1st day my blood pressure was very, very low." HISTORY OF PRESENT ILLNESS: The patient is a 51-year-old male who had been drinking "about 4 to 6 shots" of vodka per day and had been trying to quit drinking on his own, but was having a problem with that. He decided to go to [facility] in [place], [place], which is a 28-day program to help with drinking and he states that when he was checking in, they noted that he was hypotensive, "which is a sort of weird because normally I am hypertensive" according to the patient. The patient was brought to the emergency room and after further evaluation, he was subsequently admitted to the MICU. The patient states he had his last drink about 3 days ago. He states he has had a history of withdrawal seizures x1 and his girlfriend Yola, who is also participating in the interview states that the seizure activity occurred "back in 2015." The patient for his part, is denying being suicidal or homicidal. He denies any psychotic, delusional, or paranoid symptoms. He denies any problems with depression or anxiety, and he notes he just wants to get sober because he feels that will improve his quality of life, noting "I am usually a very successful man." He is eager to get back into the [facility] program once he is medically stabilized. MEDICATIONS: At the time of presentation: 1. Ativan 0.5 mg t.i.d. 2. Wellbutrin SR 150 mg b.i.d. The patient states he has been on this medication "for about 6 years" and notes that they "put me on for smoking cessation. I do not know. I just kept taking. I do not know if I really needed.". 3. Chantix 1 mg b.i.d., but the patient notes "I was just prescribed that I have not started it.". 4. Vitamin B12 supplements. 5. Hydrochlorothiazide. 6. Acetylsalicylic acid. 7. Vitamin C. 8. Pravastatin 20 mg daily. 9. Losartan 100 mg daily. 10.Amlodipine 5 mg daily. ALLERGIES: Penicillin. PAST MEDICAL HISTORY: 1. History of hypertension. 2. History of withdrawal seizure x1 in 2016. REVIEW OF SYSTEMS: Aside from cardiovascular and neuro, all other major organ systems are negative at this point in time for acute difficulties or complications. FAMILY PSYCHIATRIC AND CD HISTORY: Patient reports maternal uncle had a history of alcoholism and then a maternal cousin has a history of mental illness. PAST PSYCHIATRIC AND CD HISTORY: The patient denies any previous psychiatric hospitalizations. Her reports 2 chemical dependency treatments, this most recent one being his 2nd treatment program that he is going into. He has worked with AA in the past and has had success with AA. Notes his longest sobriety was for 1-1/2 years with AA. The patient denies any previous suicide attempts, self-injurious behaviors, or eating disorder history. Denies any past psychiatric diagnosis. Denies any past psychiatric medication history. Again noting that the Wellbutrin was used not for mood stability, but for smoking cessation. Past psychiatric diagnosis is most likely significant for anxiety since he is taking Ativan at this point in time. SOCIAL HISTORY: The patient was born and raised in [place], [place]. He is the second of 2 siblings and 1 older brother. The patient's parents were throughout his childhood and adolescence. Father was a sports manager and mother was a nurse. The patient's highest level of education is high school diploma. 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 He lives in [place] with his girlfriend. His girlfriend works as a seamstress and they have a dog. He denies any service or any current legal difficulties. He is raised [place]. He enjoys fishing involved in his spare time. MENTAL STATUS EXAMINATION: The patient is a 51-year-old white male in no apparent distress. Speech is of regular rate and rhythm. The patient is cognitively oriented. Psychomotor activity is within normal limits. There is no abnormal motor movements or tics observed. Gait is steady. Station is normal. Mood is anxious about getting back into the treatment program. Affect is cooperative overall for the purposes of the inpatient psychiatric consult. There is no behavioral or stated evidence of acute suicidal or homicidal ideation or acute psychotic, delusional, or paranoid symptoms. Thought processes are organized. There are no manic symptoms or loose associations evident. Judgment and insight appear unimpaired at this point in time. Motivation for help is good. VITAL SIGNS: 108/80, 87, 20, and then 97.9 degrees. IMPRESSION: Mcdougal I: 1. Alcohol dependence, F10.20. 2. Anxiety disorder, not otherwise specified, F41.9. 3. Tobacco and nicotine dependence. Mcdougal II: None. Mcdougal III: 1. History of hypertension. 2. History of withdrawal seizures x1 in 2016. Mcdougal IV: Severe. Mcdougal V: 50-55. PLAN: 1. Sobriety. 2. Discontinue Wellbutrin to help minimize the possibility of any breakthrough seizure activity. 3. Discontinue Chantix. This medication can precipitate depression. 4. Begin Seroquel 50 mg at bedtime while patient remains on unit for clarity of thought, mood stability, and sleep initiation and maintenance as well as anxiety reduction and psychosis prophylaxis. 5. Begin Topamax 25 mg b.i.d. for seizure prophylaxis. 6. Folic acid supplementation. 7. Thiamine supplementation. 8. Ativan per [facility] protocol. 9. May continue the patient's home prescribed Ativan 0.5 mg t.i.d. for anxiety reduction. 10.Pastoral guidance. 11.AA service liaison representative to visit the patient while on the unit. 12.Recommend that when patient is medically stabilized that he be transferred back to [facility] for initiation of his 28-day treatment program. 13.We will continue to follow up the patient on an as needed basis while he remains on inpatient MICU. 14.We will follow up with the patient's urinary tract complications in the interim. 15.Crisis plan is in place. [facility] /[id number]
--- NOTE | 2017-06-12 19:43 | CONS ---
CONSULTING PHYSICIAN: Lamonte Carlos LAC DATE OF CONSULTATION: 06/12/2017 TIME AND DATE: 7:11 p.m. IDENTIFICATION: The patient is a 51-year-old male who was admitted to [facility] ICU on 06/12/2017. An alcohol and drug evaluation was requested by his medical treatment team. SOURCE OF INFORMATION: Hospital records, staff report, prescription drug monitoring report, background research. HISTORY OF PRESENT ILLNESS: The patient is a 51-year-old male presenting to [facility] with alcohol dependence. He reports he has been trying to quit drinking and admitted himself to [facility], [facility], however, he developed hypotension and was taken to [facility] for medical clearance. After introducing myself and my occupation, the patient was asked if he wanted to participate in an alcohol and drug evaluation as requested by his medical treatment team, the patient refused the evaluation and verbalized that he and his girlfriend had their own plan. He intends to admit himself back to [facility] upon discharge from [facility] and states he will go "from the hospital to [facility] without making any stops along the way to drink." The patient was asked once again if he then chooses not to participate in the evaluation, which he affirmed his refusal. We spoke briefly about what alcohol had done to him during his life and his motivation to achieve sobriety. The patient was offered outpatient services at [facility] and was informed about all treatment options available to him within the community should he decide to pursue other avenues of treatment assistance. The patient verbalized that he did not need or want an evaluation, however, he requested [facility]'s information and business card. He was given a business card, but there were no brochures available at that time. A message will be left for Azucena TODD to provide informational materials to the patient. The patient was advised that his autonomy would be respected. However, if for some reason, he did not make it to the [facility] and he presented back to [facility] with alcohol-related issues, that a petition for involuntary commitment would be exercised at that time should his medical treatment team request my services. The patient verbalized that he understood the terms and was confident that he could get himself to treatment without the hospital's assistance. The patient was then asked the 3rd time if he was choosing to refuse hospital assistance or professional intervention to help him achieve sobriety, the patient verbalized that he was refusing the evaluation and our consultation ended. Nursing staff was consulted regarding the outcome of the consultation. Dr. Schultz will be consulted later this evening upon availability, and I will also have a consultation with PEREZ Avery, on 06/13/2017 regarding the outcome. [facility] /[id number]
[2017-06-12] MEDS: Topiramate 25 MG Tab PO SCH (20:01)
[2017-06-12] MEDS: QUEtiapine 25 MG Tab PO SCH (20:01)
[2017-06-13] MEDS: LORazepam 2 MG/ML SDV IVPUSH PRN (06:03)
[2017-06-13] MEDS: Aspirin 81 MG Tab.EC PO SCH (08:30)
[2017-06-13] MEDS: Folic Acid 1 MG Tab PO SCH (08:30)
[2017-06-13] MEDS: Ascorbic Acid 500 MG Tab PO SCH (08:30)
[2017-06-13] MEDS: LORazepam 0.5 MG Tab PO SCH ×3 (08:30→21:18)
[2017-06-13] MEDS: Nicotine 21 MG/24 Hr Patch TRDERM SCH (08:30)
[2017-06-13] MEDS: Pantoprazole 40 MG Vial IV SCH ×2 (08:30→20:40)
[2017-06-13] MEDS: Thiamine 100 MG Tab PO SCH (08:30)
[2017-06-13] MEDS: Topiramate 25 MG Tab PO SCH ×2 (08:31→20:38)
[2017-06-13] MEDS: amLODIPine 5 MG Tab PO SCH (08:45)
[2017-06-13] MEDS: Losartan 100 MG Tab PO SCH (08:45)
[2017-06-13] MEDS: Hydrochlorothiazide 25 MG Tab PO SCH (08:45)
[2017-06-13] MEDS: Cyanocobalamin (Vitamin B-12) 100 MCG PO SCH (08:46)
[2017-06-13] MEDS: Atenolol 50 MG Tab PO SCH (08:46)
--- NOTE | 2017-06-13 09:43 | PCM.PN ---
- General Info Date of Service: 06/13/17 Admission Dx/Problem (Free Text): Alcohol Withdrawal Subjective Update: Follow Up Functional Status: Reports: Pain Controlled, Tolerating Diet, Ambulating, Urinating. Denies: New Symptoms - Review of Systems General: Denies: Fever, Weakness, Fatigue, Malaise, Chills HEENT: Reports: No Symptoms Pulmonary: Denies: Shortness of Breath Cardiovascular: Denies: Chest Pain, Palpitations, Dyspnea on Exertion, Lightheadedness Gastrointestinal: Reports: Flatus. Denies: Abdominal Pain, Constipation, Decreased Appetite, Diarrhea, Difficulty Swallowing, Nausea, Vomiting Genitourinary: Reports: No Symptoms Musculoskeletal: Reports: No Symptoms Skin: Denies: Cyanosis, Mottled, Pallor, Diaphoresis, Pruritis Neurological: Denies: Confusion, Difficulty Walking, Weakness, Gait Disturbance Psychiatric: Denies: Depression, Mood Lability, Anxiety, Agitation, Cravings, Hallucinations, Suicidal Ideation, Homicidal Ideation Systems Review Comment:: No overnight or acute issues. He is doing relatively well. His morning labs are better. He has no new complaints but requests if he could stay for one more day. - Patient Data Vitals - Most Recent: Last Vital Signs Temp 36.4 C 06/13/17 08:00 Pulse 90 06/13/17 08:00 Resp 18 06/13/17 08:00 BP 124/88 06/13/17 08:45 Pulse Ox 96 06/13/17 08:00 Weight - Most Recent: 67.313 kg I&O - Last 24 Hours: Intake & Output 06/12/17 06/13/17 06/13/17 22:59 06:59 14:59 Intake Total 3194 400 Output Total 250 Balance 2944 400 Lab Results Last 24 Hours: Laboratory Results - last 24 hr 06/13/17 06/13/17 Range/Units 05:57 05:57 WBC 2.89 L (4.23-9.07) K/mm3 RBC 3.83 L (4.63-6.08) M/mm3 Hgb 12.5 L (13.7-17.5) gm/L Hct 37.3 L (40.1-51.0) % MCV 97.4 H (79.0-92.2) fl MCH 32.6 H (25.7-32.2) pg MCHC 33.5 (32.2-35.5) g/dl RDW Std Deviation 51.4 H (35.1-43.9) fL Plt Count 99 L (163-337) K/mm3 MPV 11.4 (9.4-12.3) fl Neut % (Auto) 57.4 (34.0-67.9) % Lymph % (Auto) 26.3 (21.8-53.1) % Mckean % (Auto) 9.7 (5.3-12.2) % Eos % (Auto) 5.2 (0.8-7.0) Baso % (Auto) 0.7 (0.1-1.2) % Neut # (Auto) 1.66 L (1.78-5.38) K/mm3 Lymph # (Auto) 0.76 L (1.32-3.57) K/mm3 Mckean # (Auto) 0.28 L (0.30-0.82) K/mm3 Eos # (Auto) 0.15 (0.04-0.54) K/mm3 Baso # (Auto) 0.02 (0.01-0.08) K/mm3 Manual Slide Review Abnormal smear Sodium 139 (136-145) mEq/L Potassium 3.6 (3.5-5.1) mEq/L Chloride 104 (98-107) mEq/L Carbon Dioxide 26 (21-32) mEq/L Anion Gap 12.6 (5-15) BUN 15 (7-18) mg/dL Creatinine 2.3 H (0.7-1.3) mg/dL Est Cr Clr Drug Dosing 26.27 mL/min Estimated GFR (MDRD) 30 (>60) mL/min BUN/Creatinine Ratio 6.5 L (14-18) Glucose 98 (74-106) mg/dL Calcium 8.4 L (8.5-10.1) mg/dL Magnesium 2.8 H (1.8-2.4) mg/dl AST 175 H (15-37) U/L ALT 170 H (16-63) U/L Lipase 992 H (73-393) U/L Med Orders - Current: Current Medications Albuterol/Ipratropium (Duoneb 3.0-0.5 Mg/3 Ml) 3 ml NEB Q4H PRN PRN Reason: Shortness Of Breath/wheezing Amlodipine Besylate (Norvasc) 5 mg PO DAILY [facility] Last Admin: 06/13/17 08:45 Dose: Not Given Ascorbic Acid (Vitamin C) 500 mg PO DAILY [facility] Last Admin: 06/13/17 08:30 Dose: 500 mg Aspirin (Halfprin) 81 mg PO DAILY [facility] Last Admin: 06/13/17 08:30 Dose: 81 mg Atenolol (Tenormin) 50 mg PO DAILY [facility] Last Admin: 06/13/17 08:46 Dose: Not Given Bisacodyl (Dulcolax) 5 mg PO DAILY PRN PRN Reason: Constipation Chlordiazepoxide HCl (Librium) 25 mg PO QID PRN PRN Reason: Withdrawal Symptoms Last Admin: 06/12/17 19:53 Dose: 25 mg Clonidine HCl (Catapres) 0.1 mg PO Q4H PRN PRN Reason: Agitation Docusate Sodium (Colace) 100 mg PO BID PRN PRN Reason: Constipation Folic Acid (Folic Acid) 1 mg PO DAILY [facility] Stop: 06/15/17 09:01 Last Admin: 06/13/17 08:30 Dose: 1 mg Haloperidol Lactate (Haldol) 2 mg IM Q4H PRN PRN Reason: Agitation Hydralazine HCl (Apresoline) 20 mg IVPUSH Q4H PRN PRN Reason: Hypertension Hydrochlorothiazide (Hydrochlorothiazide) 25 mg PO DAILY [facility] Last Admin: 06/13/17 08:45 Dose: Not Given Hydromorphone HCl (Dilaudid) 0.5 mg IVPUSH Q2H PRN PRN Reason: Pain (severe 7-10) Promethazine HCl 12.5 mg/ (Sodium Chloride) 50.5 mls @ 100 mls/hr IV Q6H PRN PRN Reason: Nausea/Vomiting Dextrose/Water (Dextrose 5% In Water) 1,000 mls @ 250 mls/hr IV ASDIRECTED [facility] Last Admin: 06/12/17 13:57 Dose: 250 mls/hr Ibuprofen (Motrin) 600 mg PO Q6H PRN PRN Reason: Pain (moderate 4-6) Last Admin: 06/12/17 09:14 Dose: 600 mg Lorazepam (Ativan) 2 mg IVPUSH Q4H PRN PRN Reason: Seizures Lorazepam (Ativan) 0 mg IVPUSH Q4H PRN; Protocol PRN Reason: Withdrawal Symptoms Last Admin: 06/13/17 06:03 Dose: 1 mg Lorazepam (Ativan) 0.5 mg PO TID [facility] Last Admin: 06/13/17 08:30 Dose: 0.5 mg Losartan Potassium (Cozaar) 100 mg PO DAILY [facility] Last Admin: 06/13/17 08:45 Dose: Not Given Magnesium Sulfate (Pharmacy To Dose - Magnesium Replacement) 0 dose .XX ASDIRECTED PRN PRN Reason: RX TO WATCH MAG LEVELS Metoprolol Tartrate (Lopressor) 5 mg IVPUSH Q4H PRN PRN Reason: Tachycardia Miscellaneous Information (Remove Patch) 0 ea TRDERM DAILY [facility] Last Admin: 06/12/17 09:20 Dose: 1 ea Nicotine (Habitrol) 21 mg TRDERM DAILY [facility] Last Admin: 06/13/17 08:30 Dose: 21 mg Ondansetron HCl (Zofran) 4 mg IV Q6H PRN PRN Reason: Nausea/Vomiting Last Admin: 06/12/17 02:22 Dose: 4 mg Oxycodone HCl (Oxycodone) 5 mg PO Q4H PRN PRN Reason: Pain (moderate 4-6) Pantoprazole Sodium (Protonix Iv) 40 mg IV Q12HR [facility] Stop: 06/14/17 09:00 Last Admin: 06/13/17 08:30 Dose: 40 mg Cyanocobalamin ( Vitamin B-12) 100 Mcg 0 each PO DAILY [facility] Last Admin: 06/13/17 08:46 Dose: Not Given Polyethylene Glycol (Miralax) 17 gm PO DAILY PRN PRN Reason: Constipation Potassium Chloride (Pharmacy To Dose - Potassium Replacement) 0 dose .XX ASDIRECTED PRN PRN Reason: RX TO WATCH K LEVELS Quetiapine Fumarate (Seroquel) 50 mg PO BEDTIME [facility] Last Admin: 06/12/17 20:01 Dose: 50 mg Senna/Docusate Sodium (Senna Plus) 1 tab PO BID PRN PRN Reason: Constipation Sodium Chloride (Saline Flush) 10 ml FLUSH ASDIRECTED PRN PRN Reason: Keep Vein Open Last Admin: 06/11/17 20:26 Dose: 10 ml Thiamine HCl (Vitamin B-1) 100 mg PO DAILY [facility] Last Admin: 06/13/17 08:30 Dose: 100 mg Topiramate (Topamax) 25 mg PO BID [facility] Last Admin: 06/13/17 08:31 Dose: 25 mg Discontinued Medications Folic Acid (Folic Acid) 1 mg SUBCUT ONETIME ONE Stop: 06/12/17 00:58 Last Admin: 06/12/17 02:20 Dose: 1 mg Hydromorphone HCl (Dilaudid) 0.5 mg IVPUSH Q2H PRN PRN Reason: Pain (severe 7-10) Sodium Chloride (Normal Saline) 1,000 mls @ 999 mls/hr IV ONETIME ONE Stop: 06/11/17 20:57 Last Admin: 06/11/17 20:25 Dose: 999 mls/hr Potassium Chloride 10 meq/ (Premix) 100 mls @ [facility] Admin: 06/11/17 21:24 Dose: 100 mls/hr Sodium Chloride (Normal Saline) 1,000 mls @ 999 mls/hr IV ONETIME ONE Stop: 06/11/17 22:03 Last Admin: 06/11/17 21:27 Dose: 999 mls/hr Lactated Ringer's (Ringers, Lactated) 1,000 mls @ 100 mls/hr IV .BOLUS ONE Stop: 06/12/17 10:28 Last Admin: 06/12/17 00:46 Dose: 100 mls/hr Thiamine HCl 200 mg/ Sodium (Chloride) 52 mls @ 100 mls/hr IV ONETIME ONE Stop: 06/12/17 01:27 Last Admin: 06/12/17 02:21 Dose: 100 mls/hr Lactated Ringer's (Ringers, Lactated) 1,000 mls @ 150 [facility] Last Admin: 06/12/17 04:10 Dose: 150 mls/hr Magnesium Sulfate 4 gm/ Premix 100 mls @ 100 mls/hr IV ONETIME ONE Stop: 06/12/17 02:13 Last Admin: 06/12/17 03:21 Dose: Not Given Dextrose/Sodium Chloride (Dextrose 5%-Normal Saline) 1,000 mls @ 999 mls/hr IV ONETIME ONE Stop: 06/12/17 02:42 Last Admin: 06/12/17 04:10 Dose: Not Given Magnesium Sulfate 2 gm/ Premix 50 mls @ 50 mls/hr IV Q2H [facility] Stop: 06/12/17 04:59 Last Admin: 06/12/17 05:11 Dose: 50 mls/hr Lorazepam (Ativan) 0.5 mg IVPUSH ONETIME ONE Stop: 06/11/17 20:43 Last Admin: 06/11/17 20:47 Dose: 0.5 mg Lorazepam (Ativan) 0.5 mg IVPUSH ONETIME ONE Stop: 06/12/17 00:18 Last Admin: 06/12/17 00:28 Dose: 0.5 mg Multivitamins (Thera) 1 each PO ONETIME ONE Stop: 06/12/17 00:58 Last Admin: 06/12/17 02:22 Dose: 1 each Non-Formulary Medication (Pravastatin Sodium) 20 mg PO DAILY [facility] Non-Formulary Medication (Varenicline Tartrate [Chantix]) 1 mg PO BID [facility] Pantoprazole Sodium (Protonix Iv) 40 mg IVPUSH ONETIME ONE Stop: 06/11/17 20:31 Last Admin: 06/11/17 20:48 Dose: 40 mg Bupropion 150 Mg Sr 0 each PO BID [facility] Last Admin: 06/12/17 09:20 Dose: Not Given Potassium Chloride (Klor-Con M20) 60 meq PO NOW STA Stop: 06/12/17 01:13 Last Admin: 06/12/17 02:19 Dose: 60 meq Quetiapine Fumarate (Seroquel) 50 mg PO ONETIME ONE Stop: 06/12/17 01:01 Last Admin: 06/12/17 02:20 Dose: 50 mg Topiramate (Topamax) 25 mg PO NOW STA Stop: 06/12/17 01:02 Last Admin: 06/12/17 02:20 Dose: 25 mg - Exam General: Alert, Oriented, Cooperative, No Acute Distress HEENT: Pupils Equal, Pupils Reactive, EOMI, Mucous Membr. Moist/[place] Neck: Supple, Trachea Midline, No JVD, No Thyromegaly Lungs: Clear to Auscultation, Normal Respiratory Effort Cardiovascular: Regular Rate, Regular Rhythm GI/Abdominal Exam: Normal Bowel Sounds, Soft, Non-Tender, No Organomegaly, No Distention, No Abnormal Bruit, No Mass (Male) Exam: Deferred Back Exam: Normal Inspection, Decreased Range of Motion Extremities: Normal Inspection, Normal Range of Motion, Non-Tender, No Pedal Edema, Normal Capillary Refill Peripheral Pulses: 2+: Dorsalis Pedis (L), Dorsalis Pedis (R) Skin: Warm, Dry, Intact Neurological: No New Focal Deficit Psy/Mental Status: Alert, Normal Affect, Normal Mood. No: Anxious, Agitated, Suicidal Ideation, Homicidal Ideation, Hallucinations, Withdrawal Symptoms - Problem List Review Problem List Initiated/Reviewed/Updated: Yes - My Orders Last 24 Hours: My Active Orders 06/12/17 09:00 Ascorbic Acid [Vitamin C] 500 mg PO DAILY Aspirin [Halfprin] 81 mg PO DAILY Atenolol [Tenormin] 50 mg PO DAILY Hydrochlorothiazide 25 mg PO DAILY LORazepam [Ativan] 0.5 mg PO TID Losartan [Cozaar] 100 mg PO DAILY Nicotine [Habitrol] 21 mg TRDERM DAILY Pantoprazole [ProTONIX IV] 40 mg IV Q12HR Patient's Own Medication [Ptom] 0 each PO DAILY Remove Patch 0 ea TRDERM DAILY amLODIPine [Norvasc] 5 mg PO DAILY 06/12/17 09:15 Dextrose 5% in Water 1,000 ml IV ASDIRECTED 06/12/17 09:37 HYDROmorphone [Dilaudid] 0.5 mg IVPUSH Q2H PRN 06/12/17 12:12 Admission Status [Patient Status] [ADT] Routine 06/12/17 21:00 QUEtiapine [SEROquel] 50 mg PO BEDTIME Topiramate [Topamax] 25 mg PO BID 06/13/17 09:00 Folic Acid 1 mg PO DAILY Thiamine [Vitamin B-1] 100 mg PO DAILY 06/13/17 Breakfast Full Liquid Diet [DIET] 06/13/17 Lunch Regular Diet [DIET] 06/14/17 05:11 BASIC METABOLIC PANEL,BMP [CHEM] AM CBC WITH AUTO DIFF [HEME] AM MAGNESIUM [CHEM] AM 06/15/17 05:11 BASIC METABOLIC PANEL,BMP [CHEM] AM CBC WITH AUTO DIFF [HEME] AM MAGNESIUM [CHEM] AM 06/16/17 05:11 BASIC METABOLIC PANEL,BMP [CHEM] AM CBC WITH AUTO DIFF [HEME] AM MAGNESIUM [CHEM] AM - Plan Plan:: Assessment: Acute: ETOH Withdrawal Symptoms - Carries a hx/o Chronic ETOH Abuse - SADE level of 0.04 - CIWA protocol: CIWA score is 2 - Ativan/Seroquel/Clonidine/Librium/Topamax - Hydralazine and IVP BB for HR/BP control - Ativan for Abortive Seizure and Withdrawal Symptoms - Refused SAC consultation - Dr. Goldstein recommends Sobriety, discontinue Wellbutrin and Chantix, Seroquel 50 mg po QHS for thought clarity, mood stability, anxiety reduction, psychosis prophylaxis, and sleep initiation & maintenance Alcohol Hepatitis, Improving - AST 245--> 175 and AST 209--> 170 - Continue Supportive Care and Avoid Tylenol Alcohol Pancreatitis - Lipase 2,223-->1877--> 992 - 2/2 ETOH Abuse - Continue Supportive Care - Advanced diet as tolerated Tobacco Dependence - Nicotine patch - Counseled on Smoking Cessation Abnormal Abn/Pelvis CT Scan Findings - Fatty Liver Infiltration - Mild Hepatomegaly Resolved: S/p Orthostatic Hypotension - Documented BPs of Standing 99/59, Sitting 93/60 and Supine 74/43 mmHg - 2/2 Volume Depletion from poor oral intake - IVF and monitor Hgb level S/p Mid Hypomagnesemia - MG 1.5 - 2/2 inadequate intake - Replete and monitor S/p Diarrhea - Watery - Had oral contrast with Abn/Pelvis CT scan - Consider C. diff test if he remains symptomatic S/p Mild Hypokalemia - K 3.0--> 4.0 - 2/2 inadequate intake - Replete and monitor Plan: He remains clinically stable. He is tolerating current diet Continue MVI, Folic Acid, Thiamine and CIWA protocol Ativan for Abortive Seizure and Withdrawal Symptoms PRN meds for Withdrawal Symptoms Aspiration/Seizure Precautions SW/CM d/c planning Code Status: 1 Possible d/c in AM
[2017-06-13] MEDS: chlordiazePOXIDE 25 MG Cap PO PRN (20:38)
[2017-06-13] MEDS: QUEtiapine 25 MG Tab PO SCH (20:39)
[2017-06-14] MEDS: Folic Acid 1 MG Tab PO SCH (09:33)
[2017-06-14] MEDS: LORazepam 0.5 MG Tab PO SCH (09:34)
[2017-06-14] MEDS: amLODIPine 5 MG Tab PO SCH (09:34)
[2017-06-14] MEDS: Atenolol 50 MG Tab PO SCH (09:35)
[2017-06-14] MEDS: Aspirin 81 MG Tab.EC PO SCH (09:36)
[2017-06-14] MEDS: Losartan 100 MG Tab PO SCH (09:36)
[2017-06-14] MEDS: Topiramate 25 MG Tab PO SCH (09:36)
[2017-06-14] MEDS: Ascorbic Acid 500 MG Tab PO SCH (09:36)
[2017-06-14] MEDS: Thiamine 100 MG Tab PO SCH (09:36)
[2017-06-14] MEDS: Nicotine 21 MG/24 Hr Patch TRDERM SCH (09:37)
[2017-06-14] MEDS ORDERED: Potassium Chloride 20 MEQ Tab.ER PO ONE (09:37)
[2017-06-14] MEDS: Cyanocobalamin (Vitamin B-12) 100 MCG PO SCH (09:38)
[2017-06-14] MEDS: Pantoprazole 40 MG Vial IV SCH (09:38)
--- NOTE | 2017-06-14 09:48 | PCM.DCSUM1 ---
Discharge Summary - Hospital Course Brief History: This is a 51 yo white male with past medical hx/o HTN, HLD, Nicotine Dependence, Anxiety and Depression who was brought for evaluation of hypotension. EMS was called for transporation but refused services. He came in instead via private vehicle. He was admitted for alcohol detoxification. - Discharge Data Discharge Date: 06/14/17 Discharge Disposition: Home, Self-Care 01 Condition: Good - Discharge Diagnosis/Problem(s) (1) Alcoholic hepatitis SNOMED Code(s): 570877138 ICD Code: K70.10 - ALCOHOLIC HEPATITIS WITHOUT ASCITES Status: Resolved (2) Hypokalemia SNOMED Code(s): 30189377 ICD Code: E87.6 - HYPOKALEMIA Status: Acute (3) Alcohol-induced pancreatitis SNOMED Code(s): 197901007 ICD Code: K85.20 - ALCOHOL INDUCED ACUTE PANCREATITIS WITHOUT NECROSIS OR INFCT Status: Resolved (4) Hypomagnesemia SNOMED Code(s): 910833506 ICD Code: E83.42 - HYPOMAGNESEMIA Status: Resolved (5) Tobacco dependence SNOMED Code(s): 71021376 ICD Code: F17.200 - NICOTINE DEPENDENCE, UNSPECIFIED, UNCOMPLICATED Status : Chronic (6) Alcohol abuse SNOMED Code(s): 20404080 ICD Code: F10.10 - ALCOHOL ABUSE, UNCOMPLICATED Status: Resolved (7) Alcohol withdrawal SNOMED Code(s): 902861531 ICD Code: F10.239 - ALCOHOL DEPENDENCE WITH WITHDRAWAL, UNSPECIFIED Status : Resolved Qualifiers: Complication of substance-induced condition: uncomplicated Qualified Code(s ): F10.230 - Alcohol dependence with withdrawal, uncomplicated (8) Hypotension SNOMED Code(s): 14726046 ICD Code: I95.9 - HYPOTENSION, UNSPECIFIED Status: Resolved Qualifiers: Hypotension type: orthostatic hypotension Qualified Code(s): I95.1 - Orthostatic hypotension (9) Fatty liver SNOMED Code(s): 533053758 ICD Code: K76.0 - FATTY (CHANGE OF) LIVER, NOT ELSEWHERE CLASSIFIED Status : Chronic (10) Hepatomegaly SNOMED Code(s): 47575052 ICD Code: R16.0 - HEPATOMEGALY, NOT ELSEWHERE CLASSIFIED Status: Chronic - Patient Summary/Data Operative Procedure(s) Performed: None Complications: None Consults: Consultations 06/12/17 00:56 Consult to Case Management [CONS] Routine Consult to Physician [CONS] Routine Consult to [facility] [CONS] Routine Consult to Spiritual Care [CONS] Routine 06/12/17 01:22 Consult for Substance Abuse [CONS] Routine Labs Pending at D/C: None Recommended Follow-up Testing/Procedures: None Planned Operative Procedure(s) after DC: None Hospital Course: Patient was primarily admitted for alcohol detoxification. He carried a past medical history of chronic alcohol abuse. He was initially seen in the emergency department and was referred to [facility] for outpatient treatment. Unfortunately patient was noncompliant, he continued to drink and presented to [facility] intoxicated and having withdrawal symptoms. His initial workup on admission showed hypotension with a blood alcohol level of 0.04. He was also found with elevated liver and pancreatic enzymes which we felt related to his alcohol abuse. Upon admission, the patient was put on CIWA protocol and was provided mainly with supportive care. Substance abuse counselor was consulted but patient refused services. However he agreed to see Dr. Goldstein for further psychiatric evaluation and patient was started on Seroquel 50 mg by mouth daily at bedtime for insomnia and sleep initiation as well as Topamax 25 mg by mouth twice a day for chronic alcoholism. His hospital course was uncomplicated. The rest of his chronic medical illness remained stable during his admission. Patient was able to eat and drink without any symptoms and he was clinically stable prior to discharge. He was advised to cut down or avoid drinking alcohol while on those 2 above medications. He was further advised to proceed to [facility] for outpatient treatment. And most importantly, he was advised to follow-up with his primary care as well as outpatient psychiatry as scheduled. The patient and his expressed understanding and in agreement with the plans as discussed above. All questions were answered. - Patient Instructions Diet: Usual Diet as Tolerated Activity: Non Weight Bearing Driving: May Drive Today Showering/Bathing: May Shower Notify Provider of: Fever, Increased Pain, Nausea and/or Vomiting Other/Special Instructions: - Please take all new medicaions as directed. - Resume all home medications. - Continue routine home activities. - Warning: You will be taking medications that could impair your level attention; avoid drinking alcohol and be careful operating any motor vehicles or machines. - Cut down your intake or avoid alcohol! - Recommend you follow up with Psychiatry in 2-3 weeks. - Recommend you see Substance Abuse Counselor outpatient. - Follow up with your doctor in 1 week - Discharge Plan Prescriptions/Med Rec: Nicotine [Nicotine Patch] 1 each TD DAILY #30 patch.td24 Home Medications: Home Meds Ascorbic Acid 500 mg PO DAILY 06/09/17 [History] Aspirin [Adult Low Dose Aspirin EC] 81 mg PO DAILY 06/09/17 [History] Bisoprolol/Hydrochlorothiazide [Bisoprolol/HCTZ 5-6.25 MG] 1 tab PO DAILY [History] Cyanocobalamin (Vitamin B-12) [Vitamin B-12] 100 mcg PO DAILY 06/09/17 [History] LORazepam [Ativan] 0.5 mg PO TID 06/09/17 [History] Losartan Potassium 100 mg PO DAILY 06/09/17 [History] Pravastatin Sodium 20 mg PO DAILY 06/09/17 [History] amLODIPine Besylate [Amlodipine Besylate] 5 mg PO DAILY 06/09/17 [History] Nicotine [Nicotine Patch] 1 each TD DAILY #30 patch.td24 06/14/17 [Rx] QUEtiapine [SEROquel] 50 mg PO BEDTIME #30 tablet 06/14/17 [Rx] Topiramate [Topamax] 25 mg PO BID #60 tablet 06/14/17 [Rx] Patient Handouts: Smoking Cessation, Tips for Success, [id number] Referrals: John Ball MD [Primary Care Provider] - (Please make follow-up appointment with Primary Care Provider) - Discharge Summary/Plan Comment DC Time >30 min.: Yes (45 mins) Discharge Summary/Plan Comment: Discharge to [facility] vs Home Patient was counseled about the dangers of smoking and associated health risks. At this time, he is not ready to quit but receptive to the idea of smoking cessation. Patient was provided reading materials to help when to quit smoking. He was advised to call the Quit line and follow up with his PCP when he set a specific date to quit. - General Info Date of Service: 06/14/17 Admission Dx/Problem (Free Text: Alcohol Withdrawal Subjective Update: Follow Up Functional Status: Reports: Pain Controlled, Tolerating Diet, Ambulating, Urinating. Denies: New Symptoms - Review of Systems General: Denies: Fever, Weakness, Fatigue, Malaise, Chills HEENT: Reports: No Symptoms Pulmonary: Denies: Shortness of Breath Cardiovascular: Denies: Chest Pain Gastrointestinal: Reports: Flatus. Denies: Abdominal Pain, Constipation, Decreased Appetite, Diarrhea, Difficulty Swallowing, Nausea, Vomiting Genitourinary: Reports: No Symptoms Musculoskeletal: Reports: No Symptoms Skin: Reports: No Symptoms Neurological: Denies: Confusion, Dizziness, Headache, Pre-Existing Deficit, Seizure, Syncope, Tremors, Trouble Speaking, Difficulty Walking, Weakness, Gait Disturbance Psychiatric: Denies: Confusion, Depression, Anxiety, Agitation, Cravings, Hallucinations, Suicidal Ideation Systems Review Comment: He had an uneventful night. No complaints this morning. He remains clinically stable. His K is mildly low at 3 on am labs. - Patient Data Vitals - Most Recent: Last Vital Signs Temp 36.3 C 06/14/17 06:24 Pulse 79 06/14/17 09:35 Resp 16 06/14/17 07:27 BP 123/86 06/14/17 09:36 Pulse Ox 91 L 06/14/17 07:27 Weight - Most Recent: 64.954 kg I&O - Last 24 hours: Intake & Output 06/13/17 06/14/17 06/14/17 22:59 06:59 14:59 Intake Total 240 400 Balance 240 400 Lab Results - Last 24 hrs: Laboratory Results - last 24 hr 06/14/17 06/14/17 Range/Units 06:25 06:25 WBC 3.01 L (4.23-9.07) K/mm3 RBC 3.76 L (4.63-6.08) M/mm3 Hgb 12.4 L (13.7-17.5) gm/L Hct 37.7 L (40.1-51.0) % MCV 100.3 H (79.0-92.2) fl MCH 33.0 H (25.7-32.2) pg MCHC 32.9 (32.2-35.5) g/dl RDW Std Deviation 55.5 H (35.1-43.9) fL Plt Count 107 L (163-337) K/mm3 MPV 11.8 (9.4-12.3) fl Neut % (Auto) 36.5 (34.0-67.9) % Lymph % (Auto) 45.8 (21.8-53.1) % Arroyo % (Auto) 11.0 (5.3-12.2) % Eos % (Auto) 4.7 (0.8-7.0) Baso % (Auto) 1.7 H (0.1-1.2) % Neut # (Auto) 1.10 L (1.78-5.38) K/mm3 Lymph # (Auto) 1.38 (1.32-3.57) K/mm3 [place] # (Auto) 0.33 (0.30-0.82) K/mm3 Eos # (Auto) 0.14 (0.04-0.54) K/mm3 Baso # (Auto) 0.05 (0.01-0.08) K/mm3 Sodium 144 (136-145) mEq/L Potassium 3.0 L (3.5-5.1) mEq/L Chloride 107 (98-107) mEq/L Carbon Dioxide 27 (21-32) mEq/L Anion Gap 13.0 (5-15) BUN 16 (7-18) mg/dL Creatinine 1.3 (0.7-1.3) mg/dL Est Cr Clr Drug Dosing 46.47 mL/min Estimated GFR (MDRD) 58 (>60) mL/min BUN/Creatinine Ratio 12.3 L (14-18) Glucose 110 H (74-106) mg/dL Calcium 9.1 (8.5-10.1) mg/dL Magnesium 2.1 (1.8-2.4) mg/dl Med Orders - Current: Current Medications Albuterol/Ipratropium (Duoneb 3.0-0.5 Mg/3 Ml) 3 ml NEB Q4H PRN PRN Reason: Shortness Of Breath/wheezing Amlodipine Besylate (Norvasc) 5 mg PO DAILY [facility] Last Admin: 06/14/17 09:34 Dose: 5 mg Ascorbic Acid (Vitamin C) 500 mg PO DAILY [facility] Last Admin: 06/14/17 09:36 Dose: 500 mg Aspirin (Halfprin) 81 mg PO DAILY [facility] Last Admin: 06/14/17 09:36 Dose: 81 mg Atenolol (Tenormin) 50 mg PO DAILY [facility] Last Admin: 06/14/17 09:35 Dose: 50 mg Bisacodyl (Dulcolax) 5 mg PO DAILY PRN PRN Reason: Constipation Chlordiazepoxide HCl (Librium) 25 mg PO QID PRN PRN Reason: Withdrawal Symptoms Last Admin: 06/13/17 20:38 Dose: 25 mg Clonidine HCl (Catapres) 0.1 mg PO Q4H PRN PRN Reason: Agitation Docusate Sodium (Colace) 100 mg PO BID PRN PRN Reason: Constipation Folic Acid (Folic Acid) 1 mg PO DAILY [facility] Stop: 06/15/17 09:01 Last Admin: 06/14/17 09:33 Dose: 1 mg Haloperidol Lactate (Haldol) 2 mg IM Q4H PRN PRN Reason: Agitation Hydralazine HCl (Apresoline) 20 mg IVPUSH Q4H PRN PRN Reason: Hypertension Hydrochlorothiazide (Hydrochlorothiazide) 25 mg PO DAILY [facility] Last Admin: 06/13/17 08:45 Dose: Not Given Hydromorphone HCl (Dilaudid) 0.5 mg IVPUSH Q2H PRN PRN Reason: Pain (severe 7-10) Promethazine HCl 12.5 mg/ (Sodium Chloride) 50.5 mls @ 100 mls/hr IV Q6H PRN PRN Reason: Nausea/Vomiting Ibuprofen (Motrin) 600 mg PO Q6H PRN PRN Reason: Pain (moderate 4-6) Last Admin: 06/12/17 09:14 Dose: 600 mg Lorazepam (Ativan) 2 mg IVPUSH Q4H PRN PRN Reason: Seizures Lorazepam (Ativan) 0 mg IVPUSH Q4H PRN; Protocol PRN Reason: Withdrawal Symptoms Last Admin: 06/13/17 06:03 Dose: 1 mg Lorazepam (Ativan) 0.5 mg PO TID [facility] Last Admin: 06/14/17 09:34 Dose: 0.5 mg Losartan Potassium (Cozaar) 100 mg PO DAILY [facility] Last Admin: 06/14/17 09:36 Dose: 100 mg Magnesium Sulfate (Pharmacy To Dose - Magnesium Replacement) 0 dose .XX ASDIRECTED PRN PRN Reason: RX TO WATCH MAG LEVELS Metoprolol Tartrate (Lopressor) 5 mg IVPUSH Q4H PRN PRN Reason: Tachycardia Miscellaneous Information (Remove Patch) 0 ea TRDERM DAILY [facility] Last Admin: 06/13/17 14:37 Dose: 1 ea Nicotine (Habitrol) 21 mg TRDERM DAILY [facility] Last Admin: 06/14/17 09:37 Dose: 21 mg Ondansetron HCl (Zofran) 4 mg IV Q6H PRN PRN Reason: Nausea/Vomiting Last Admin: 06/12/17 02:22 Dose: 4 mg Oxycodone HCl (Oxycodone) 5 mg PO Q4H PRN PRN Reason: Pain (moderate 4-6) Cyanocobalamin ( Vitamin B-12) 100 Mcg 0 each PO DAILY [facility] Last Admin: 06/14/17 09:38 Dose: Not Given Polyethylene Glycol (Miralax) 17 gm PO DAILY PRN PRN Reason: Constipation Potassium Chloride (Pharmacy To Dose - Potassium Replacement) 0 dose .XX ASDIRECTED PRN PRN Reason: RX TO WATCH K LEVELS Quetiapine Fumarate (Seroquel) 50 mg PO BEDTIME [facility] Last Admin: 06/13/17 20:39 Dose: 50 mg Senna/Docusate Sodium (Senna Plus) 1 tab PO BID PRN PRN Reason: Constipation Sodium Chloride (Saline Flush) 10 ml FLUSH ASDIRECTED PRN PRN Reason: Keep Vein Open Last Admin: 06/11/17 20:26 Dose: 10 ml Thiamine HCl (Vitamin B-1) 100 mg PO DAILY [facility] Last Admin: 06/14/17 09:36 Dose: 100 mg Topiramate (Topamax) 25 mg PO BID [facility] Last Admin: 06/14/17 09:36 Dose: 25 mg Discontinued Medications Folic Acid (Folic Acid) 1 mg SUBCUT ONETIME ONE Stop: 06/12/17 00:58 Last Admin: 06/12/17 02:20 Dose: 1 mg Hydromorphone HCl (Dilaudid) 0.5 mg IVPUSH Q2H PRN PRN Reason: Pain (severe 7-10) Sodium Chloride (Normal Saline) 1,000 mls @ 999 mls/hr IV ONETIME ONE Stop: 06/11/17 20:57 Last Admin: 06/11/17 20:25 Dose: 999 mls/hr Potassium Chloride 10 meq/ (Premix) 100 mls @ 100 mls/hr IV ASDIRECTED [facility] Last Admin: 06/11/17 21:24 Dose: 100 mls/hr Sodium Chloride (Normal Saline) 1,000 mls @ 999 mls/hr IV ONETIME ONE Stop: 06/11/17 22:03 Last Admin: 06/11/17 21:27 Dose: 999 mls/hr Lactated Ringer's (Ringers, Lactated) 1,000 mls @ 100 mls/hr IV .BOLUS ONE Stop: 06/12/17 10:28 Last Admin: 06/12/17 00:46 Dose: 100 mls/hr Thiamine HCl 200 mg/ Sodium (Chloride) 52 mls @ 100 mls/hr IV ONETIME ONE Stop: 06/12/17 01:27 Last Admin: 06/12/17 02:21 Dose: 100 mls/hr Lactated Ringer's (Ringers, Lactated) 1,000 mls @ 150 mls/hr IV ASDIRECTED [facility] Last Admin: 06/12/17 04:10 Dose: 150 mls/hr Magnesium Sulfate 4 gm/ Premix 100 mls @ 100 mls/hr IV ONETIME ONE Stop: 06/12/17 02:13 Last Admin: 06/12/17 03:21 Dose: Not Given Dextrose/Sodium Chloride (Dextrose 5%-Normal Saline) 1,000 mls @ 999 mls/hr IV ONETIME ONE Stop: 06/12/17 02:42 Last Admin: 06/12/17 04:10 Dose: Not Given Magnesium Sulfate 2 gm/ Premix 50 mls @ 50 mls/hr IV Q2H [facility] Stop: 06/12/17 04:59 Last Admin: 06/12/17 05:11 Dose: 50 mls/hr Dextrose/Water (Dextrose 5% In Water) 1,000 mls @ 250 mls/hr IV ASDIRECTED [facility] Last Admin: 06/12/17 13:57 Dose: 250 mls/hr Lorazepam (Ativan) 0.5 mg IVPUSH ONETIME ONE Stop: 06/11/17 20:43 Last Admin: 06/11/17 20:47 Dose: 0.5 mg Lorazepam (Ativan) 0.5 mg IVPUSH ONETIME ONE Stop: 06/12/17 00:18 Last Admin: 06/12/17 00:28 Dose: 0.5 mg Multivitamins (Thera) 1 each PO ONETIME ONE Stop: 06/12/17 00:58 Last Admin: 06/12/17 02:22 Dose: 1 each Non-Formulary Medication (Pravastatin Sodium) 20 mg PO DAILY [facility] Non-Formulary Medication (Varenicline Tartrate [Chantix]) 1 mg PO BID [facility] Pantoprazole Sodium (Protonix Iv) 40 mg IVPUSH ONETIME ONE Stop: 06/11/17 20:31 Last Admin: 06/11/17 20:48 Dose: 40 mg Pantoprazole Sodium (Protonix Iv) 40 mg IV Q12HR [facility] Stop: 06/14/17 09:00 Last Admin: 06/14/17 09:38 Dose: 40 mg Bupropion 150 Mg Sr 0 each PO BID [facility] Last Admin: 06/12/17 09:20 Dose: Not Given Potassium Chloride (Klor-Con M20) 60 meq PO NOW STA Stop: 06/12/17 01:13 Last Admin: 06/12/17 02:19 Dose: 60 meq Potassium Chloride (Klor-Con M20) 40 meq PO ONETIME ONE Stop: 06/14/17 09:38 Quetiapine Fumarate (Seroquel) 50 mg PO ONETIME ONE Stop: 06/12/17 01:01 Last Admin: 06/12/17 02:20 Dose: 50 mg Topiramate (Topamax) 25 mg PO NOW STA Stop: 06/12/17 01:02 Last Admin: 06/12/17 02:20 Dose: 25 mg - Exam General: Reports: Alert, Oriented, Cooperative, No Acute Distress HEENT: Reports: Pupils Equal, Pupils Reactive, EOMI, Mucous Membr. Moist/[place] Neck: Reports: Supple, Trachea Midline, No JVD, No Thyromegaly Lungs: Reports: Clear to Auscultation, Normal Respiratory Effort Cardiovascular: Reports: Regular Rate, Regular Rhythm GI/Abdominal Exam: Normal Bowel Sounds, Soft, Non-Tender, No Organomegaly, No Distention, No Abnormal Bruit (Male) Exam: Deferred Rectal (Males) Exam: Deferred Back Exam: Reports: Normal Inspection, Full Range of Motion Extremities: Normal Inspection, Normal Range of Motion, Non-Tender, No Pedal Edema, Normal Capillary Refill Skin: Reports: Warm, Dry, Intact Neurological: Reports: No New Focal Deficit Psy/Mental Status: Reports: Alert, Normal Affect, Normal Mood *Q Meaningful Use (DIS) - VTE *Q VTE Criteria *Q: - Stroke *Q Stroke Criteria *Q: - AMI *Q AMI Criteria *Q:
[2017-06-14] MEDS: chlordiazePOXIDE 25 MG Cap PO PRN (10:19)
[2017-06-14] MEDS: Hydrochlorothiazide 25 MG Tab PO SCH (10:19)
[2017-06-14] MEDS ORDERED: LORazepam 0.5 MG Tab PO SCH (15:00)
== END 2017-06-14 10:40 | disposition home or self-care (01) ==
LOC: JD.ED 19:36 → INTOOBSV 06-12 00:48 → JD.ICU 06-12 00:48 → JD.MS 06-13 15:17
PROVIDERS: ADMIT Internal Medicine; ATTEND Internal Medicine
DX: I95.1 Orthostatic hypotension (principal); K70.10 Alcoholic hepatitis without ascites; I10 Essential (primary) hypertension; E78.5 Hyperlipidemia, unspecified; F17.210 Nicotine dependence, cigarettes, uncomplicated; F41.9 Anxiety disorder, unspecified; F32.9 Major depressive disorder, single episode, unspecified; E87.6 Hypokalemia; K85.20 Alcohol induced acute pancreatitis without necrosis or infection; E83.42 Hypomagnesemia; F10.230 Alcohol dependence with withdrawal, uncomplicated; K76.0 Fatty (change of) liver, not elsewhere classified; R16.0 Hepatomegaly, not elsewhere classified; E78.00 Pure hypercholesterolemia, unspecified; E86.9 Volume depletion, unspecified; R19.7 Diarrhea, unspecified; Z79.899 Other long term (current) drug therapy; Z79.82 Long term (current) use of aspirin; Z88.0 Allergy status to penicillin
CPT/HCPCS: 36415; 70450; 71045; 74177; 80048; 80053; 80306; 81001; 82270; 83036; 83690; 83735; 84450; 84460; 85025; 85610; 85730; 86850; 86900; 86901; 93005; 96361; 96365; 96375; 96376; 99285; A9270; C9113; G0480; J2060; J2405; J3411; J3480; J7030; J7040; J7050; J7060; J7120; 93010; 96366; 96367; 96372; 99284-25; G0378; J3475

== ENCOUNTER 2018-08-03 09:20 | Emergency (ER) | payer MEDICAID, BC ==
--- NOTE | 2018-08-03 10:43 | EDM.PDOCBH ---
ED HPI GENERAL MEDICAL PROBLEM - General Chief Complaint: Drug or Alcohol Abuse Stated Complaint: ALCOHOL EVALUATION SENT BY [facility] Time Seen by Provider: 08/03/18 10:19 Source of Information: Reports: Patient, RN Notes Reviewed, Other ([facility] counselor) History Limitations: Reports: No Limitations - History of Present Illness INITIAL COMMENTS - FREE TEXT/NARRATIVE: The patient states that he is an alcoholic, drinking, on average, about 5 shots of vodka per day. He states that he knows he needs to stop drinking, but that he does not want to stop yet. The patient's girlfriend took the patient to [facility] to get help, and his blood pressure was found to be elevated. The patient states that he ordinarily is compliant with his blood pressure medicines (he does not know the names of his medicines), but that he forgot to take them this morning. [facility] insisted that the patient come here to get evaluated. The patient states that he has been to inpatient alcohol treatment only once previously, about a year ago, for one month, remaining sober for a couple of months while at [facility]. He attended outpatient treatment for some months after the inpatient treatment, but he states he has not gone for several months now. He states that he has been drinking every day since he restarted drinking several months ago. His last drink was around 05:00 this morning. The patient states that he does not want any tests to be performed, and he refuses to be admitted to the hospital. The patient's PCP is Dr. Ball. Back Pain Score (Numeric/FACES): 4 - Related Data Allergies Allergy/AdvReac Type Severity Reaction Status Date / Time Penicillins Allergy Cannot Verified 08/03/18 10:03 Remember Home Meds: Home Meds Ascorbic Acid 500 mg PO DAILY 06/09/17 [History] Aspirin [Adult Low Dose Aspirin EC] 81 mg PO DAILY 06/09/17 [History] Bisoprolol/Hydrochlorothiazide [Bisoprolol/HCTZ 5-6.25 MG] 1 tab PO DAILY [History] Cyanocobalamin (Vitamin B-12) [Vitamin B-12] 100 mcg PO DAILY 06/09/17 [History] LORazepam [Ativan] 0.5 mg PO TID 06/09/17 [History] Losartan Potassium 100 mg PO DAILY 06/09/17 [History] Pravastatin Sodium 20 mg PO DAILY 06/09/17 [History] amLODIPine Besylate [Amlodipine Besylate] 5 mg PO DAILY 06/09/17 [History] Nicotine [Nicotine Patch] 1 each TD DAILY #30 patch.td24 06/14/17 [Rx] QUEtiapine [SEROquel] 50 mg PO BEDTIME #30 tablet 06/14/17 [Rx] Topiramate [Topamax] 25 mg PO BID #60 tablet 06/14/17 [Rx] Past Medical History Cardiovascular History: Reports: High Cholesterol, Hypertension Musculoskeletal History: Reports: Other (See Below) (Dwarfism) Psychiatric History: Reports: Addiction (alcohol), Anxiety, Depression Endocrine/Metabolic History: Reports: Obesity/BMI 30+ - Past Surgical History HEENT Surgical History: Reports: Tonsillectomy Social & Family History - Tobacco Use Smoking Status *Q: Current Every Day Smoker Years of Tobacco use: 42 Packs/Tins Daily: 1 - Caffeine Use Caffeine Use: Reports: Coffee - Alcohol Use Alcohol Use History: Yes Days Per Week of Alcohol Use: 7 Number of Drinks Per Day: 5 Total Drinks Per Week: 35 Alcohol Use Frequency: Daily - Recreational Drug Use Recreational Drug Use: Yes Drug Use in Last 12 Months: No Recreational Drug Type: Reports: Cocaine (last snorted around 1999), LSD (Acid) (tried once, around 1999), Marijuana/Hashish (last smoked around 2014), Psilocybin (Mushrooms) (tried once, around 1999) - Living Situation & Occupation Living situation: Reports: , with Significant Other (Girlfriend) Occupation: Employed ([employer]) ED ROS GENERAL - Review of Systems Review Of Systems: ROS reveals no pertinent complaints other than HPI. ED EXAM, BEHAVIORAL HEALTH - Physical Exam Exam: See Below Exam Limited By: No Limitations General Appearance: Alert, No Apparent Distress, Other (Short stature and limbs , consistent with dwarfism) Eye Exam: Bilateral Eye: EOMI, Normal Inspection Ears: Normal External Exam, Hearing Grossly Normal Nose: Normal Inspection Throat/Mouth: Normal Inspection, Normal Lips, Normal Voice, No Airway Compromise Head: Atraumatic, Normocephalic Neck: Normal Inspection, Full Range of Motion Respiratory/Chest: No Respiratory Distress, Lungs Clear, Normal Breath Sounds, No Accessory Muscle Use Cardiovascular: Normal Peripheral Pulses, Regular Rate, Rhythm, No Edema, No Gallop, No JVD, No Murmur, No Rub GI/Abdominal: Normal Bowel Sounds, Soft, Non-Tender, No Organomegaly, No Distention, No Abnormal Bruit, No Mass, Other (Obese) (Male) Exam: Deferred Rectal (Males) Exam: Deferred Back Exam: Normal Inspection, Full Range of Motion, NT Extremities: Normal Inspection, Normal Range of Motion, No Pedal Edema, Normal Capillary Refill Neurological: Alert, Normal Cognition, No Motor/Sensory Deficits, Oriented x 3 Psychiatric: Normal Affect Skin Exam: Warm, Dry, Intact, Normal color, No rash COURSE, BEHAVIORAL HEALTH COMP - Course Vital Signs: Last Vital Signs Temp 36.1 C 08/03/18 10:00 Pulse 128 H 08/03/18 10:00 Resp 18 08/03/18 10:00 BP 168/126 H 08/03/18 10:00 Pulse Ox 100 08/03/18 10:00 Medical Clearance: 08/03/18 10:39 The patient's blood pressure is elevated, and he is tachycardic, however, he did not take his BP medications this morning, and does not recall their names. I offered to call Dr. aBll's office to see what his blood pressure medicines are , then provide them here, but the patient declined, stating that he has his blood pressure medicines at home. While the patient states that, yes, he would ultimately like to stop drinking, he acknowledges that he is not ready to stop drinking now. He does not want any tests to be performed, and he does not want to be admitted to the hospital. He would be willing to go into [facility], however, he tells me that there are no beds available currently. All he would like from me at this time is a note to be off work today and tomorrow. Departure - Departure Time of Disposition: 10:41 Disposition: Home, Self-Care 01 Condition: Fair Clinical Impression: Hypertension, Alcoholism - Discharge Information *PRESCRIPTION DRUG MONITORING PROGRAM REVIEWED*: Not Applicable *COPY OF PRESCRIPTION DRUG MONITORING REPORT IN PATIENT MOOSE: Not Applicable Instructions: Alcohol Use Disorder, Hypertension, [id number] Referrals: John Ball MD [Primary Care Provider] - Forms: ED Return to Work/School Form Additional Instructions: You were seen in the emergency room at the request of [facility], related to your drinking and elevated blood pressure. Medical evaluation, including blood work, was offered, but declined. Consideration for hospitalization was offered, but declined. A note for work has been provided to you. We recommend that you take your blood pressure medicines as soon as you get home. If you change your mind and would like medical help regarding your alcoholism, please return to the ER.
== END 2018-08-03 11:00 | disposition home or self-care (01) ==
LOC: JD.ED 09:20
DX: I10 Essential (primary) hypertension (principal); F10.20 Alcohol dependence, uncomplicated; E66.9 Obesity, unspecified; F41.9 Anxiety disorder, unspecified; F17.210 Nicotine dependence, cigarettes, uncomplicated; Z88.0 Allergy status to penicillin; Z79.82 Long term (current) use of aspirin; Z79.899 Other long term (current) drug therapy
CPT/HCPCS: 99283; 99284

== ENCOUNTER 2018-09-27 10:52 | Inpatient (IN) | payer BC, MEDICAID ==
[2018-09-27] MEDS ORDERED: Sodium Chloride 0.9% 1,000 ML IV ONE (11:15)
--- NOTE | 2018-09-27 11:17 | EDM.PDOC ---
ED HPI GENERAL MEDICAL PROBLEM - General Chief Complaint: Drug or Alcohol Abuse Stated Complaint: LT SHOULDER INJURY Time Seen by Provider: 09/27/18 10:54 Source of Information: Reports: Patient, RN Notes Reviewed, Significant Other ( Girlfriend) History Limitations: Reports: No Limitations - History of Present Illness INITIAL COMMENTS - FREE TEXT/NARRATIVE: The patient states that he tripped and fell in his home about 3 weeks ago, injuring his left shoulder. He states that it was initially black and blue to the upper arm and even to his chest. He has not sought medical evaluation for it , but he has continued to have pain. The patient also reports that he has been drinking 8-10 shots of vodka per day for about the past month. The patient has a history of chronic daily alcoholism. Medical records indicate that the patient was seen in this ED on 06/09/2017. A medical evaluation for clearance for [facility] was performed, and the patient was discharged, with the anticipation that he would go immediately to [facility], however, the patient instead went home and drank, presenting to [facility] on 06/11/2018. They found the patient to be hypotensive, therefore sent him back to this ED. He was found to be orthostatic with elevated LFTs and an alcohol level of 0.04. His lipase was elevated at 2223, although a CT scan of his abdomen and pelvis was negative for pancreatitis. The patient was admitted to the hospital through 2017. His admission was uncomplicated. The patient states that after discharge from the hospital, he spent about one month at [facility], and remained sober for an additional one month. He has been drinking daily ever since. He was seen by me in this ED on 08/03/2018, after his girlfriend brought him to [facility], and they found his blood pressure to be elevated. The patient told me at that time that he knew he needed to stop drinking, but that he did not want to stop drinking, that he did not want any tests to be drawn, and he refused admission to the hospital. At this time, the patient states that his last drink was around 10:00 AM yesterday morning, 09/26/2018. He states that he does not feel any withdrawal symptoms, but that he feels tired and weak. He is reluctantly agreeable to being admitted to the hospital, if offered. The patient has no prior history of significant alcohol withdrawal symptoms, although he did have a single seizure associated with alcohol about 2.5 years ago. Other than the admission to our hospital on 06/11/2018, he states that he has not been hospitalized due to his drinking. The patient's PCP is Dr. Ball. Left Shoulder Pain Score (Numeric/FACES): 9 - Related Data Allergies Allergy/AdvReac Type Severity Reaction Status Date / Time Penicillins Allergy Hives Verified 09/27/18 11:02 Home Meds: Home Meds Aspirin [Adult Low Dose Aspirin EC] 81 mg PO DAILY 06/09/17 [History] Bisoprolol/Hydrochlorothiazide [Bisoprolol/HCTZ 5-6.25 MG] 1 tab PO DAILY [History] Losartan Potassium 100 mg PO DAILY 06/09/17 [History] Pravastatin Sodium 20 mg PO DAILY 06/09/17 [History] amLODIPine Besylate [Amlodipine Besylate] 5 mg PO DAILY 06/09/17 [History] Past Medical History Cardiovascular History: Reports: High Cholesterol, Hypertension Musculoskeletal History: Reports: Other (See Below) (Dwarfism) Psychiatric History: Reports: Addiction (alcohol), Anxiety, Depression Endocrine/Metabolic History: Reports: Obesity/BMI 30+ - Past Surgical History HEENT Surgical History: Reports: Tonsillectomy Social & Family History - Tobacco Use Smoking Status *Q: Current Every Day Smoker Years of Tobacco use: 42 Packs/Tins Daily: 1 - Caffeine Use Caffeine Use: Reports: Coffee - Alcohol Use Alcohol Use History: Yes Days Per Week of Alcohol Use: 7 Number of Drinks Per Day: 10 Total Drinks Per Week: 70 Date of Last Drink: 09/26/18 Time of Last Drink: 10:00 Alcohol Use Frequency: Daily - Recreational Drug Use Recreational Drug Use: Yes Drug Use in Last 12 Months: No Recreational Drug Type: Reports: Cocaine (last snorted in 1999), LSD (Acid) ( took once in 1999), Marijuana/Hashish (last smoked in 2014), Psilocybin ( Mushrooms) (ate once in 1999) - Living Situation & Occupation Living situation: Reports: , with Significant Other (Girlfriend) Occupation: Unemployed ED ROS GENERAL - Review of Systems Review Of Systems: ROS reveals no pertinent complaints other than HPI. ED EXAM, GENERAL - Physical Exam Exam: See Below Exam Limited By: No Limitations General Appearance: Alert, WD/WN, No Apparent Distress Eye Exam: Bilateral Eye: EOMI, Normal Inspection Ears: Normal External Exam, Hearing Grossly Normal Nose: Normal Inspection Throat/Mouth: Normal Inspection, Normal Lips, Normal Voice, No Airway Compromise Head: Atraumatic, Normocephalic Neck: Normal Inspection, Full Range of Motion Respiratory/Chest: No Respiratory Distress, No Accessory Muscle Use, Wheezing ( expiratory, all lung elias) Cardiovascular: Normal Peripheral Pulses, No Gallop, No JVD, No Murmur, No Rub, Tachycardia (regular) Peripheral Pulses: 2+: Radial (L) (2 LUE edema), 4+: Radial (R) GI/Abdominal: Normal Bowel Sounds, Soft, Non-Tender, No Organomegaly, No Distention, No Abnormal Bruit, No Mass, Other (Obese) (Male) Exam: Deferred Rectal (Males) Exam: Deferred Back Exam: Normal Inspection, Full Range of Motion, NT Extremities: No Pedal Edema, Normal Capillary Refill, Other (2+ edema entire left upper shoulder. There is circumferential ecchymosis to the upper left arm, with associated tenderness. The patient has limited range of motion to his left upper extremity and he cannot raise his left arm up over her height.) Neurological: Alert, Oriented, Normal Cognition, No Motor/Sensory Deficits, Other (Fine tremor noted) Psychiatric: Normal Affect Skin Exam: Warm, Dry, Intact, Normal Color, No Rash EKG INTERPRETATION EKG Date: 09/27/18 Time: 12:05 Rhythm: Other (Sinus tachycardia) Rate (Beats/Min): 110 [place]: Normal P-Wave: Present QRS: Normal ST-T: Depressed (Slight ST depression in anterolateral leads, but without T- wave inversion) QT: Normal Comparison: Change From Previous EKG (ST depressions new since 06/11/2017) Course - Vital Signs Last Recorded V/S: Last Vital Signs Temp 37.4 C 09/27/18 15:45 Pulse 110 H 09/27/18 15:45 Resp 20 09/27/18 15:45 BP 157/84 H 09/27/18 15:45 Pulse Ox 97 09/27/18 15:45 Orthostatic Blood Pressure [ 215/94 Standing] Orthostatic Blood Pressure [ 185/99 Sitting] Orthostatic Blood Pressure [ 171/95 Supine] - Orders/Labs/Meds Orders: Active Orders 24 hr Category Date Time Status EKG Documentation Completion [RC] STAT Care 09/27/18 11:15 Active Orthostatic Vital Signs [RC] STAT Care 09/27/18 11:16 Active Shoulder Comp Lt [CR] Stat Exams 09/27/18 11:14 Taken DME for Discharge [COMM] Stat Oth 09/27/18 12:46 Ordered Medication Orders Amlodipine Besylate (Norvasc) 5 mg PO DAILY LINO Aspirin (Halfprin) 81 mg PO DAILY LINO Atenolol (Tenormin) 50 mg PO DAILY LINO Clonazepam (Klonopin) 1 mg PO TID LINO Enoxaparin Sodium (Lovenox) 40 mg SUBCUT Q24H LINO Folic Acid (Folic Acid) 1 mg PO DAILY LINO Hydrochlorothiazide (Hydrochlorothiazide) 25 mg PO DAILY [facility] Hydromorphone HCl (Dilaudid) 0.5 mg IVPUSH Q4H PRN PRN Reason: Pain (moderate 4-6) Last Admin: 09/27/18 17:26 Dose: 0.5 mg Dextrose/Sodium Chloride (Dextrose 5%-Normal Saline) 1,000 mls @ 125 mls/hr IV ASDIRECTED LINO Magnesium Sulfate 2 gm/ Premix 50 mls @ 25 mls/hr IV Q1H LINO Stop: 09/27/18 18:59 Losartan Potassium (Cozaar) 100 mg PO DAILY [facility] Ondansetron HCl (Zofran) 4 mg IVPUSH Q6H PRN PRN Reason: Nausea Simvastatin (Zocor) 10 mg PO BEDTIME LINO Thiamine HCl (Vitamin B-1) 100 mg PO DAILY LINO Labs: Laboratory Tests 09/27/18 09/27/18 09/27/18 Range/Units 12:23 12:23 12:23 WBC 7.39 (4.23-9.07) K/mm3 RBC 3.09 L (4.63-6.08) M/mm3 Hgb 9.8 L D (13.7-17.5) gm/L Hct 30.6 L (40.1-51.0) % MCV 99.0 H (79.0-92.2) fl MCH 31.7 (25.7-32.2) pg MCHC 32.0 L (32.2-35.5) g/dl RDW Std Deviation 56.5 H (35.1-43.9) fL Plt Count 322 (163-337) K/mm3 MPV 9.6 (9.4-12.3) fl Neutrophils % (Manual) 78 H (40-60) % Band Neutrophils % 0 (0-10) % Lymphocytes % (Manual) 19 L (20-40) % Atypical Lymphs % 0 % Monocytes % (Manual) 1 L (2-10) % Eosinophils % (Manual) 1 (0.8-7.0) % Basophils % (Manual) 1 (0.2-1.2) Toxic Granulation 2+ moderate Platelet Estimate Adequate Plt Morphology Comment Normal Anisocytosis 1+ slight Microcytosis 1+ slight RBC Morph Comment Not Reportable Sodium 144 (136-145) mEq/L Potassium 3.0 L (3.5-5.1) mEq/L Chloride 105 (98-107) mEq/L Carbon Dioxide 25 (21-32) mEq/L Anion Gap 17.0 H (5-15) BUN 20 H (7-18) mg/dL Creatinine 0.8 (0.7-1.3) mg/dL Est Cr Clr Drug Dosing 74.65 mL/min Estimated GFR (MDRD) > 60 (>60) mL/min BUN/Creatinine Ratio 25.0 H (14-18) Glucose 100 (74-106) mg/dL Calcium 8.1 L (8.5-10.1) mg/dL Magnesium (1.8-2.4) mg/dl Total Bilirubin 0.6 (0.2-1.0) mg/dL AST 49 H (15-37) U/L ALT 46 (16-63) U/L Alkaline Phosphatase 102 (46-116) U/L Total Protein 5.9 L (6.4-8.2) g/dl Albumin 2.8 L (3.4-5.0) g/dl Globulin 3.1 gm/dL Albumin/Globulin Ratio 0.9 L (1-2) TSH 3rd Generation 1.647 (0.358-3.74) uIU/mL Salicylates 7.3 (2.8-20) mg/dL Urine Opiates Screen (LEUVZE=446) Ur Buprenorphine Scrn (CUTOFF=10) Ur Oxycodone Screen (YOG0RU=665) Urine Methadone Screen (KCK1BQ=409) Ur Propoxyphene Screen (NWFYMX=969) Acetaminophen 0 L (10-30) ug/mL Ur Barbiturates Screen (LGMLAY=779) Ur Tricyclics Screen (YKBTYO=801) Ur Phencyclidine Scrn (CUTOFF=25) Ur Amphetamine Screen (OPNQKM=769) U Methamphetamines Scrn (SZRMCN=058) U Benzodiazepines Scrn (VZJWVV=563) U Cocaine Metab Screen (EUCOKP=458) U Marijuana (THC) Screen (CUTOFF=50) Ethyl Alcohol 0.01 (0.00) gm% 09/27/18 09/27/18 Range/Units 12:23 13:35 WBC (4.23-9.07) K/mm3 RBC (4.63-6.08) M/mm3 Hgb (13.7-17.5) gm/L Hct (40.1-51.0) % MCV (79.0-92.2) fl MCH (25.7-32.2) pg MCHC (32.2-35.5) g/dl RDW Std Deviation (35.1-43.9) fL Plt Count (163-337) K/mm3 MPV (9.4-12.3) fl Neutrophils % (Manual) (40-60) % Band Neutrophils % (0-10) % Lymphocytes % (Manual) (20-40) % Atypical Lymphs % % Monocytes % (Manual) (2-10) % Eosinophils % (Manual) (0.8-7.0) % Basophils % (Manual) (0.2-1.2) Toxic Granulation Platelet Estimate Plt Morphology Comment Anisocytosis Microcytosis RBC Morph Comment Sodium (136-145) mEq/L Potassium (3.5-5.1) mEq/L Chloride (98-107) mEq/L Carbon Dioxide (21-32) mEq/L Anion Gap (5-15) BUN (7-18) mg/dL Creatinine (0.7-1.3) mg/dL Est Cr Clr Drug Dosing mL/min Estimated GFR (MDRD) (>60) mL/min BUN/Creatinine Ratio (14-18) Glucose (74-106) mg/dL Calcium (8.5-10.1) mg/dL Magnesium 1.0 L (1.8-2.4) mg/dl Total Bilirubin (0.2-1.0) mg/dL AST (15-37) U/L ALT (16-63) U/L Alkaline Phosphatase (46-116) U/L Total Protein (6.4-8.2) g/dl Albumin (3.4-5.0) g/dl Globulin gm/dL Albumin/Globulin Ratio (1-2) TSH 3rd Generation (0.358-3.74) uIU/mL Salicylates (2.8-20) mg/dL Urine Opiates Screen Negative (LZYEBZ=662) Ur Buprenorphine Scrn Negative (CUTOFF=10) Ur Oxycodone Screen Negative (GJG2ZU=881) Urine Methadone Screen Negative (UBV6MR=737) Ur Propoxyphene Screen Negative (JVFWAU=098) Acetaminophen (10-30) ug/mL Ur Barbiturates Screen Negative (OARLQJ=521) Ur Tricyclics Screen Negative (CHZYZZ=708) Ur Phencyclidine Scrn Negative (CUTOFF=25) Ur Amphetamine Screen Negative (ABONKT=907) U Methamphetamines Scrn Negative (XYPOEU=054) U Benzodiazepines Scrn Presumptive positive H (MOGFWI=200) U Cocaine Metab Screen Negative (ALRSAW=853) U Marijuana (THC) Screen Negative (CUTOFF=50) Ethyl Alcohol (0.00) gm% Meds: Medications Generic Name Dose Route Start Last Admin Trade Name Freq PRN Reason Stop Dose Admin Amlodipine Besylate 5 mg 09/27/18 17:15 Norvasc PO DAILY LINO Aspirin 81 mg 09/28/18 09:00 Halfprin PO DAILY LINO Atenolol 50 mg 09/28/18 09:00 Tenormin PO DAILY LINO Clonazepam 1 mg 09/27/18 17:03 Klonopin PO TID LINO Enoxaparin Sodium 40 mg 09/27/18 17:00 Lovenox SUBCUT Q24H LINO Folic Acid 1 mg 09/27/18 17:00 Folic Acid PO DAILY LINO Hydrochlorothiazide 25 mg 09/28/18 09:00 Hydrochlorothiazide PO DAILY LINO Hydromorphone HCl 0.5 mg 09/27/18 17:15 09/27/18 17:26 Dilaudid IVPUSH 0.5 mg Q4H PRN Administration Pain (moderate 4-6) Dextrose/Sodium Chloride 1,000 mls @ 125 mls/hr 09/27/18 17:00 Dextrose 5%-Normal Saline IV ASDIRECTED LINO Magnesium Sulfate 2 gm/ Premix 50 mls @ 25 mls/hr 09/27/18 17:00 IV 09/27/18 18:59 Q1H LINO Losartan Potassium 100 mg 09/28/18 09:00 Cozaar PO DAILY LINO Ondansetron HCl 4 mg 09/27/18 16:56 Zofran IVPUSH Q6H PRN Nausea Simvastatin 10 mg 09/27/18 21:00 Zocor PO BEDTIME LINO Thiamine HCl 100 mg 09/27/18 17:15 Vitamin B-1 PO DAILY [facility] Discontinued Medications Generic Name Dose Route Start Last Admin Trade Name Freq PRN Reason Stop Dose Admin Clonazepam 0.5 mg 09/27/18 21:00 Klonopin PO TID LINO Clonazepam 0.5 mg 09/27/18 17:00 Klonopin PO BID [facility] Sodium Chloride 1,000 mls @ 999 mls/hr 09/27/18 11:15 09/27/18 11:41 Normal Saline IV 09/27/18 12:15 999 mls/hr ONETIME ONE Administration Magnesium Sulfate 2 gm/ Premix 50 mls @ 50 mls/hr 09/27/18 13:21 09/27/18 13: 49 IV 09/27/18 14:20 50 mls/hr ONETIME ONE Administration Magnesium Sulfate 2 gm/ Premix 50 mls @ 25 mls/hr 09/27/18 16:56 IV 09/27/18 18:55 ONETIME ONE Ibuprofen 600 mg 09/27/18 14:23 09/27/18 14:32 Motrin PO 09/27/18 14:24 600 mg ONETIME ONE Administration Pneumococcal Polyvalent Vaccine 0.5 ml 09/27/18 17:13 Pneumovax 23 IM 09/27/18 17:14 .ONCE ONE - Re-Assessments/Exams Free Text/Narrative Re-Assessment/Exam: 09/27/18 11:16 I have ordered x-rays of the patient's left shoulder, as well as a medical evaluation in preparation for admission to the hospital for alcohol detoxification. Because the patient is tachycardic, I have ordered orthostatics and 1 L of IV fluid. While the patient states that he feels no withdrawal symptoms, I noticed that he has a fine tremor on examination. 09/27/18 12:05 The patient is not orthostatic. 09/27/18 12:43 3-view radiographs of the left shoulder appear to demonstrate a comminuted fracture of the proximal humerus at the surgical neck, as well as comminution of the ball of the humerus, with moderate posterior displacement and partial posterior dislocation of the head. There may also be a nondisplaced, partially healed fracture of the proximal shaft of the humerus. Formal read per the Radiologist pending. I have ordered a left arm sling. 09/27/18 13:22 The patient's CBC shows modest anemia, but is otherwise unremarkable. The patient's CMP is remarkable for potassium depressed at 3.0, but is otherwise unremarkable. The patient's magnesium level is significantly depressed at 1.0. The patient's TSH is normal. The patient's acetaminophen level is 0. The patient's salicylate level is within therapeutic range at 7.3. The patient's alcohol level is only slightly elevated at 0.01. The patient's urine drug screen is still pending. I have ordered a 2 g Mg-rider. Once the magnesium has been replaced, his potassium can be replaced. 09/27/18 14:11 The patient's urine drug screen is positive for benzodiazepines. The patient states that he took 2 Ativan just prior to coming to the ED. He states that he was prescribed Ativan by Dr. Ball. Test results discussed with the patient and his girlfriend. As above, the patient has modest hypokalemia, as well as significant hypomagnesemia. Because his magnesium level is so low, I am recommending that we recheck his magnesium level after he has finished receiving the 2g Mg-rider. Once his magnesium level has normalized, he can receive oral potassium replacement. This could be done in the ED, however, if the patient is to be admitted, could be done on the floor. The patient is more concerned about the status of his humerus fractures. I explained that I don't expect that an Orthopedic Surgeon would recommend surgery , certainly not emergency surgery, however, I have pushed the shoulder images to Nikhil Guerrero and will discuss the case with an Orthopedic Surgeon. The patient is requesting pain medication. As this is 3 weeks out from his injury and we do not want to cloud his sensorium, I explained that I cannot order or prescribe an opioid. The patient expressed understanding. I have ordered ibuprofen. 09/27/18 14:[address] Mirza Barry, Orthopedic Surgeon at [facility], at 14:31. If the patient were not an alcoholic, putting him at increased risk for falls and dislocation, Dr. Barry might consider shoulder replacement, but since the patient is dealing with issues of alcoholism, that is not an option at this time. He suggested that the patient get medically stabilized, then follow-up with him in his office later this week, where they could discuss options, which might include shoulder replacement surgery months down the road, if the patient is able to remain sober. 09/27/18 15:[address] Barry was discussed with the patient and his girlfriend. My recommendation is that the patient be admitted to the hospital to correct his electrolyte abnormalities and observe for signs of significant alcohol withdrawal. If he does not develop any significant withdrawal symptoms, he may be discharged home in about 2 days, at which time he can follow-up with Suzanna to see if he might benefit from inpatient treatment at [facility], and he can also follow-up with Dr. Barry in [place]. The patient is agreeable to this plan. Case discussed with Dr. Feliz at 14:58. He agreed to admit the patient. Departure - Departure Time of Disposition: 15:06 Disposition: Admitted As Inpatient 64 Condition: Fair Clinical Impression: Alcoholism, Closed fracture of proximal end of left humerus, Hypomagnesemia, Hypokalemia - Discharge Information *PRESCRIPTION DRUG MONITORING PROGRAM REVIEWED*: Not Applicable *COPY OF PRESCRIPTION DRUG MONITORING REPORT IN PATIENT MOOSE: Not Applicable - My Orders Last 24 Hours: My Active Orders 09/27/18 11:14 Shoulder Comp Lt [CR] Stat 09/27/18 11:15 EKG Documentation Completion [RC] STAT 09/27/18 11:16 Orthostatic Vital Signs [RC] STAT 09/27/18 12:46 DME for Discharge [COMM] Stat - Assessment/Plan Last 24 Hours: My Active Orders 09/27/18 11:14 Shoulder Comp Lt [CR] Stat 09/27/18 11:15 EKG Documentation Completion [RC] STAT 09/27/18 11:16 Orthostatic Vital Signs [RC] STAT 09/27/18 12:46 DME for Discharge [COMM] Stat
[2018-09-27 13:19] LABS: ACETAMINOPHEN 0 ug/mL (10-30)
[2018-09-27] MEDS ORDERED: Magnesium Sulfate/Water 2 GM in Premix Bag 1 BAG IV ONE ×2 (13:21→16:56)
[2018-09-27] MEDS ORDERED: Ibuprofen 600 MG Tab PO ONE (14:23)
[2018-09-27] MEDS ORDERED: Ondansetron 4 MG/2 ML SDV IVPUSH PRN (16:56)
[2018-09-27] MEDS ORDERED: ClonazePAM 0.5 MG Tab PO SCH ×2 (17:00→21:00)
--- NOTE | 2018-09-27 17:11 | PCM.HP ---
H&P History of Present Illness - General Date of Service: 09/27/18 Admit Problem/Dx: Admission Diagnosis/Problem Admission Diagnosis/Problem Alcohol dependence - History of Present Illness Initial Comments - Free Text/Narative: 52 yo WM with h/o alcoholism, HTN, dyslipidemia admitted through ED after declining functional status, falls, left shoulder trauma. Was also found to have Mg level at 1.0. Admitted for further treatment for alcohol withdrawal, severe hypomagnesemia. Left Shoulder Pain Score (Numeric/FACES): 9 - Related Data Allergies/Adverse Reactions: Allergies Allergy/AdvReac Type Severity Reaction Status Date / Time Penicillins Allergy Hives Verified 09/27/18 11:02 Home Medications: Home Meds Aspirin [Adult Low Dose Aspirin EC] 81 mg PO DAILY 06/09/17 [History] Bisoprolol/Hydrochlorothiazide [Bisoprolol/HCTZ 5-6.25 MG] 1 tab PO DAILY [History] Losartan Potassium 100 mg PO DAILY 06/09/17 [History] Pravastatin Sodium 20 mg PO DAILY 06/09/17 [History] amLODIPine Besylate [Amlodipine Besylate] 5 mg PO DAILY 06/09/17 [History] Past Medical History Cardiovascular History: Reports: High Cholesterol, Hypertension Musculoskeletal History: Reports: Other (See Below) (Dwarfism) Other Musculoskeletal History: l shoulder pain Psychiatric History: Reports: Addiction (alcohol), Anxiety, Depression Endocrine/Metabolic History: Reports: Obesity/BMI 30+ - Past Surgical History HEENT Surgical History: Reports: Tonsillectomy Social & Family History - Tobacco Use Smoking Status *Q: Current Every Day Smoker Years of Tobacco use: 42 Packs/Tins Daily: 1 - Caffeine Use Caffeine Use: Reports: Coffee - Alcohol Use Days Per Week of Alcohol Use: 7 Number of Drinks Per Day: 10 Total Drinks Per Week: 70 Date of Last Drink: 09/26/18 Time of Last Drink: 10:00 - Recreational Drug Use Recreational Drug Use: Yes Drug Use in Last 12 Months: No Recreational Drug Type: Reports: Cocaine (last snorted in 1999), LSD (Acid) ( took once in 1999), Marijuana/Hashish (last smoked in 2014), Psilocybin ( Mushrooms) (ate once in 1999) - Living Situation & Occupation Living situation: Reports: , with Significant Other (Girlfriend) Occupation: Unemployed H&P Review of Systems - Review of Systems: Review Of Systems: See Below General: Reports: Weakness, Fatigue. Denies: Fever, Chills HEENT: Reports: No Symptoms Pulmonary: Denies: Shortness of Breath, Wheezing Cardiovascular: Denies: Chest Pain, Palpitations, Orthopnea, Edema Gastrointestinal: Denies: Abdominal Pain, Diarrhea, Melena Genitourinary: Denies: Dysuria, Frequency Musculoskeletal: Reports: Shoulder Pain Skin: Denies: Cyanosis, Jaundice Psychiatric: Reports: Anxiety Neurological: Reports: Seizure. Denies: Syncope Hematologic/Lymphatic: Denies: Easy Bleeding, Easy Bruising Exam - Exam Exam: See Below - Vital Signs Vital Signs: Last Vital Signs Temp 99.3 F 09/27/18 15:45 Pulse 110 H 09/27/18 15:45 Resp 20 09/27/18 15:45 BP 157/84 H 09/27/18 15:45 Pulse Ox 97 09/27/18 15:45 Orthostatic Blood Pressure [ 215/94 Standing] Orthostatic Blood Pressure [ 185/99 Sitting] Orthostatic Blood Pressure [ 171/95 Supine] Weight: 150 lb - Exam General: Alert, Oriented, Cooperative HEENT: Conjunctiva Clear, EOMI, Pupils Equal Neck: Supple, Trachea Midline Lungs: Clear to Auscultation, Normal Respiratory Effort. No: Crackles Cardiovascular: Regular Rate, Regular Rhythm, Normal S1, Normal S2, Tachycardia GI/Abdominal Exam: Normal Bowel Sounds, Soft, Non-Tender, No Distention Extremities: Other (left arm sling) Peripheral Pulses: 2+: Dorsalis Pedis (R) Skin: Warm, Dry, Intact Neuro Extensive - Mental Status: Oriented x3, Normal Cognition Neuro Extensive - Motor, Sensory, Reflexes: CN II-XII Intact, Tremor. No: Motor /Sensory Deficits Psychiatric: Alert, Anxious - Patient Data Lab Results Last 24 hrs: Laboratory Results - last 24 hr 09/27/18 09/27/18 09/27/18 Range/Units 12:23 12:23 12:23 WBC 7.39 (4.23-9.07) K/mm3 RBC 3.09 L (4.63-6.08) M/mm3 Hgb 9.8 L D (13.7-17.5) gm/L Hct 30.6 L (40.1-51.0) % MCV 99.0 H (79.0-92.2) fl MCH 31.7 (25.7-32.2) pg MCHC 32.0 L (32.2-35.5) g/dl RDW Std Deviation 56.5 H (35.1-43.9) fL Plt Count 322 (163-337) K/mm3 MPV 9.6 (9.4-12.3) fl Neutrophils % (Manual) 78 H (40-60) % Band Neutrophils % 0 (0-10) % Lymphocytes % (Manual) 19 L (20-40) % Atypical Lymphs % 0 % Monocytes % (Manual) 1 L (2-10) % Eosinophils % (Manual) 1 (0.8-7.0) % Basophils % (Manual) 1 (0.2-1.2) Toxic Granulation 2+ moderate Platelet Estimate Adequate Plt Morphology Comment Normal Anisocytosis 1+ slight Microcytosis 1+ slight RBC Morph Comment Not Reportable Sodium 144 (136-145) mEq/L Potassium 3.0 L (3.5-5.1) mEq/L Chloride 105 (98-107) mEq/L Carbon Dioxide 25 (21-32) mEq/L Anion Gap 17.0 H (5-15) BUN 20 H (7-18) mg/dL Creatinine 0.8 (0.7-1.3) mg/dL Est Cr Clr Drug Dosing 74.65 mL/min Estimated GFR (MDRD) > 60 (>60) mL/min BUN/Creatinine Ratio 25.0 H (14-18) Glucose 100 (74-106) mg/dL Calcium 8.1 L (8.5-10.1) mg/dL Magnesium (1.8-2.4) mg/dl Total Bilirubin 0.6 (0.2-1.0) mg/dL AST 49 H (15-37) U/L ALT 46 (16-63) U/L Alkaline Phosphatase 102 (46-116) U/L Total Protein 5.9 L (6.4-8.2) g/dl Albumin 2.8 L (3.4-5.0) g/dl Globulin 3.1 gm/dL Albumin/Globulin Ratio 0.9 L (1-2) TSH 3rd Generation 1.647 (0.358-3.74) uIU/mL Salicylates 7.3 (2.8-20) mg/dL Urine Opiates Screen (OAGOQM=863) Ur Buprenorphine Scrn (CUTOFF=10) Ur Oxycodone Screen (KCS4GE=616) Urine Methadone Screen (IOC4TV=738) Ur Propoxyphene Screen (FOUZTG=566) Acetaminophen 0 L (10-30) ug/mL Ur Barbiturates Screen (GPHLEP=381) Ur Tricyclics Screen (NRRMIW=445) Ur Phencyclidine Scrn (CUTOFF=25) Ur Amphetamine Screen (BMXJXT=812) U Methamphetamines Scrn (XPUBSF=953) U Benzodiazepines Scrn (TAEYYN=755) U Cocaine Metab Screen (NEEMPM=865) U Marijuana (THC) Screen (CUTOFF=50) Ethyl Alcohol 0.01 (0.00) gm% 09/27/18 09/27/18 Range/Units 12:23 13:35 WBC (4.23-9.07) K/mm3 RBC (4.63-6.08) M/mm3 Hgb (13.7-17.5) gm/L Hct (40.1-51.0) % MCV (79.0-92.2) fl MCH (25.7-32.2) pg MCHC (32.2-35.5) g/dl RDW Std Deviation (35.1-43.9) fL Plt Count (163-337) K/mm3 MPV (9.4-12.3) fl Neutrophils % (Manual) (40-60) % Band Neutrophils % (0-10) % Lymphocytes % (Manual) (20-40) % Atypical Lymphs % % Monocytes % (Manual) (2-10) % Eosinophils % (Manual) (0.8-7.0) % Basophils % (Manual) (0.2-1.2) Toxic Granulation Platelet Estimate Plt Morphology Comment Anisocytosis Microcytosis RBC Morph Comment Sodium (136-145) mEq/L Potassium (3.5-5.1) mEq/L Chloride (98-107) mEq/L Carbon Dioxide (21-32) mEq/L Anion Gap (5-15) BUN (7-18) mg/dL Creatinine (0.7-1.3) mg/dL Est Cr Clr Drug Dosing mL/min Estimated GFR (MDRD) (>60) mL/min BUN/Creatinine Ratio (14-18) Glucose (74-106) mg/dL Calcium (8.5-10.1) mg/dL Magnesium 1.0 L (1.8-2.4) mg/dl Total Bilirubin (0.2-1.0) mg/dL AST (15-37) U/L ALT (16-63) U/L Alkaline Phosphatase (46-116) U/L Total Protein (6.4-8.2) g/dl Albumin (3.4-5.0) g/dl Globulin gm/dL Albumin/Globulin Ratio (1-2) TSH 3rd Generation (0.358-3.74) uIU/mL Salicylates (2.8-20) mg/dL Urine Opiates Screen Negative ([place]=980) Ur Buprenorphine Scrn Negative (CUTOFF=10) Ur Oxycodone Screen Negative (GIB1TB=486) Urine Methadone Screen Negative (NEW8WM=564) Ur Propoxyphene Screen Negative (XITWQV=466) Acetaminophen (10-30) ug/mL Ur Barbiturates Screen Negative (FESNHV=275) Ur Tricyclics Screen Negative (ZKLOLF=816) Ur Phencyclidine Scrn Negative (CUTOFF=25) Ur Amphetamine Screen Negative (GGKNSQ=630) U Methamphetamines Scrn Negative (MSMMRB=683) U Benzodiazepines Scrn Presumptive positive H (IVOWXL=517) U Cocaine Metab Screen Negative (SZEDXV=487) U Marijuana (THC) Screen Negative (CUTOFF=50) Ethyl Alcohol (0.00) gm% Result Diagrams: 09/27/18 12:23 09/27/18 12:23 - Problem List (1) Alcohol withdrawal SNOMED Code(s): 838312458 ICD Code: F10.239 - ALCOHOL DEPENDENCE WITH WITHDRAWAL, UNSPECIFIED Status : Acute Priority: High Current Visit: Yes (2) Hypomagnesemia SNOMED Code(s): 851831641 ICD Code: E83.42 - HYPOMAGNESEMIA Status: Acute Priority: High Current Visit: Yes (3) Essential hypertension SNOMED Code(s): 44444255 ICD Code: I10 - ESSENTIAL (PRIMARY) HYPERTENSION Status: Acute Priority: High Current Visit: Yes Problem List Initiated/Reviewed/Updated: Yes Orders Last 24hrs: Active Orders 24 hr Category Date Time Status Patient Status [ADT] Routine ADT 09/27/18 16:14 Active Bedrest Bathroom Privileges [RC] ASDIRECTED Care 09/27/18 17:00 Ordered EKG Documentation Completion [RC] STAT Care 09/27/18 11:15 Active Orthostatic Vital Signs [RC] STAT Care 09/27/18 11:16 Active Heart Healthy Diet [DIET] Diet 09/27/18 Breakfast Ordered Regular Diet [DIET] Diet 09/28/18 Breakfast Ordered Shoulder Comp Lt [CR] Stat Exams 09/27/18 11:14 Taken CBC WITH AUTO DIFF [HEME] AM Lab 09/28/18 05:11 Ordered COMPREHENSIVE METABOLIC PN,CMP [CHEM] AM Lab 09/28/18 05:11 Ordered CREATINE KINASE,CK [CHEM] AM Lab 09/28/18 05:11 Ordered GLYCOSYLATED HEMOGLOBIN,HGBA1C [CHEM] AM Lab 09/28/18 05:11 Ordered INR,PT,PROTHROMBIN TIME [COAG] AM Lab 09/28/18 05:11 Ordered LIPASE [CHEM] AM Lab 09/28/18 05:11 Ordered MAGNESIUM [CHEM] AM Lab 09/28/18 05:00 Ordered PHOSPHORUS [CHEM] AM Lab 09/28/18 05:00 Ordered Aspirin [Halfprin] Med 09/28/18 09:00 Ordered 81 mg PO DAILY Bisoprolol/Hydrochlorothiazide Med 09/28/18 09:00 Ordered 1 tab PO DAILY ClonazePAM [KlonoPIN] Med 09/27/18 17:03 Ordered 1 mg PO TID Dextrose 5%-Normal Saline @ 125 MLS/HR(1000ml) Med 09/27/18 17:00 Ordered Dextrose 5%-0.9% NaCl [Dextrose 5%-Normal Saline] 1,000 ml IV ASDIRECTED Enoxaparin [Lovenox] Med 09/27/18 17:00 Ordered 40 mg SUBCUT Q24H Folic Acid Med 09/27/18 17:00 Ordered 1 mg PO DAILY Losartan [Cozaar] Med 09/28/18 09:00 Ordered 100 mg PO DAILY Magnesium Sulfate/Water [Magnesium Sulfate in Water Med 09/27/18 17:00 Ordered Premix] 2 gm Premix Bag 1 bag IV Q1H Ondansetron [Zofran] Med 09/27/18 16:56 Ordered 4 mg IVPUSH Q6H PRN Pravastatin Sodium Med 09/28/18 09:00 Ordered 20 mg PO DAILY Thiamine [Vitamin B-1] Med 09/27/18 17:15 Ordered 100 mg PO DAILY amLODIPine [Norvasc] Med 09/27/18 17:15 Ordered 5 mg PO DAILY DME for Discharge [COMM] Stat Oth 09/27/18 12:46 Ordered Resuscitation Status Stat Resus Stat 09/27/18 16:55 Ordered Medication Orders Amlodipine Besylate (Norvasc) 5 mg PO DAILY LINO Aspirin (Halfprin) 81 mg PO DAILY [facility]O Clonazepam (Klonopin) 1 mg PO TID LINO Enoxaparin Sodium (Lovenox) 40 mg SUBCUT Q24H LINO Folic Acid (Folic Acid) 1 mg PO DAILY [facility] Dextrose/Sodium Chloride (Dextrose 5%-Normal Saline) 1,000 mls @ 125 mls/hr IV ASDIRECTED LINO Magnesium Sulfate 2 gm/ Premix 50 mls @ 25 mls/hr IV Q1H LINO Stop: 09/27/18 18:59 Losartan Potassium (Cozaar) 100 mg PO DAILY [facility] Non-Formulary Medication (Bisoprolol/Hydrochlorothiazide) 1 tab PO DAILY [facility] Non-Formulary Medication (Pravastatin Sodium) 20 mg PO DAILY [facility]O Ondansetron HCl (Zofran) 4 mg IVPUSH Q6H PRN PRN Reason: Nausea Thiamine HCl (Vitamin B-1) 100 mg PO DAILY LINO Assessment/Plan Comment:: 1. IVF, thiamine, folate, benzodiazepine. 2. Magnesium replacement and follow up. 3. Resume home BBL, CCB, ACEi. 4. DVTP - LMWH.
[2018-09-27] MEDS ORDERED: Pneumococcal Polyvalent-23 Vaccine 0.5 ML SDV IM ONE (17:13)
[2018-09-27] MEDS: HYDROmorphone 0.5 MG/0.5 ML Syringe IVPUSH PRN (17:26)
[2018-09-27] MEDS: Magnesium Sulfate/Water 2 GM in Premix Bag 1 BAG IV SCH ×2 (17:43→19:47)
[2018-09-27] MEDS: Dextrose 5%-0.9% NaCl 1,000 ML IV SCH (17:43)
[2018-09-27] MEDS: Thiamine 100 MG Tab PO SCH (19:18)
[2018-09-27] MEDS: Folic Acid 1 MG Tab PO SCH (19:18)
[2018-09-27] MEDS: Enoxaparin 40 MG/0.4 ML Syringe SUBCUT SCH (19:18)
[2018-09-27] MEDS: amLODIPine 5 MG Tab PO SCH (19:19)
[2018-09-27] MEDS: ClonazePAM 0.5 MG Tab PO SCH ×2 (19:19→20:03)
[2018-09-27] MEDS: Nicotine 21 MG/24 Hr Patch TRDERM SCH (19:21)
[2018-09-27] MEDS: Simvastatin 10 MG Tab PO SCH (20:42)
[2018-09-28] MEDS: HYDROmorphone 0.5 MG/0.5 ML Syringe IVPUSH PRN ×6 (01:57→21:51)
[2018-09-28] MEDS: Dextrose 5%-0.9% NaCl 1,000 ML IV SCH ×3 (01:58→21:51)
[2018-09-28] MEDS: Potassium Chloride 10 MEQ in Premix Bag 1 BAG IV SCH ×4 (06:56→10:25)
[2018-09-28] MEDS ORDERED: Potassium Chloride 20 MEQ Tab.ER PO ONE (07:00)
[2018-09-28] MEDS ORDERED: Magnesium Sulfate/Water 2 GM in Premix Bag 1 BAG IV ONE (07:00)
--- NOTE | 2018-09-28 07:28 | CR ---
Left shoulder: Three views of the left shoulder were obtained. Comparison: No previous left shoulder exam. Fracture is identified within the proximal diaphysis near the surgical neck. Fracture is seen within the humeral head at the base of the greater tuberosity. Fracture displacement has up to 1 cm. Dystrophic calcifications (most likely due to early callus) are seen within the upper left shoulder. Degenerative change is noted within the acromioclavicular joint with superior spurring. Osteopenia is seen. Impression: 1. Left proximal humeral fracture with dystrophic calcification presumably due to early callus. Mild displacement is seen. 2. Degenerative change within the acromioclavicular joint and osteopenia. Diagnostic code #3
[2018-09-28 07:43] LABS: HEMOGLOBIN A1C 5.3 % (4.50-6.20)
[2018-09-28] MEDS: Nicotine 21 MG/24 Hr Patch TRDERM SCH (08:42)
[2018-09-28] MEDS: ClonazePAM 0.5 MG Tab PO SCH (08:47)
[2018-09-28] MEDS: Thiamine 100 MG Tab PO SCH (08:47)
[2018-09-28] MEDS: ClonazePAM 1 MG Tab PO SCH ×3 (08:50→21:51)
[2018-09-28] MEDS: Losartan 100 MG Tab PO SCH (08:51)
[2018-09-28] MEDS: Aspirin 81 MG Tab.EC PO SCH (08:51)
[2018-09-28] MEDS: amLODIPine 5 MG Tab PO SCH (08:52)
[2018-09-28] MEDS: Atenolol 50 MG Tab PO SCH (08:52)
[2018-09-28] MEDS: Folic Acid 1 MG Tab PO SCH (08:52)
[2018-09-28] MEDS: Hydrochlorothiazide 25 MG Tab PO SCH (08:53)
[2018-09-28] MEDS ORDERED: BISOPROLOL PO SCH (09:00)
[2018-09-28] MEDS ORDERED: HYDROCHLOROTHIAZIDE PO SCH (09:00)
--- NOTE | 2018-09-28 11:20 | PCM.PN ---
- General Info Date of Service: 09/28/18 Admission Dx/Problem (Free Text): 52 yo WM with h/o alcoholism, HTN, dyslipidemia admitted through ED after declining functional status, falls, left shoulder trauma. Was also found to have Mg level at 1.0. Admitted for further treatment for alcohol withdrawal, severe hypomagnesemia. 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 - Review of Systems Systems Review Comment:: General: Reports: Weakness, Fatigue. Denies: Fever, Chills HEENT: Reports: No Symptoms Pulmonary: Denies: Shortness of Breath, Wheezing Cardiovascular: Denies: Chest Pain, Palpitations, Orthopnea, Edema Gastrointestinal: Denies: Abdominal Pain, Diarrhea, Melena Genitourinary: Denies: Dysuria, Frequency Musculoskeletal: Reports: Shoulder Pain Skin: Denies: Cyanosis, Jaundice Psychiatric: Reports: Anxiety Neurological: Reports: Seizure. Denies: Syncope Hematologic/Lymphatic: Denies: Easy Bleeding, Easy Bruising - Patient Data Vitals - Most Recent: Last Vital Signs Temp 97.2 F 09/28/18 08:00 Pulse 96 09/28/18 08:52 Resp 18 09/28/18 08:00 BP 141/93 H 09/28/18 08:52 Pulse Ox 99 09/28/18 08:00 Orthostatic Blood Pressure [ 215/94 Standing] Orthostatic Blood Pressure [ 185/99 Sitting] Orthostatic Blood Pressure [ 171/95 Supine] Weight - Most Recent: 143 lb 14.4 oz I&O - Last 24 Hours: Intake & Output 09/27/18 09/28/18 09/28/18 19:59 03:59 11:59 Intake Total 0 450 1593 Balance 0 450 1593 Lab Results Last 24 Hours: Laboratory Results - last 24 hr 09/27/18 09/27/18 09/27/18 Range/Units 12:23 12:23 12:23 WBC 7.39 (4.23-9.07) K/mm3 RBC 3.09 L (4.63-6.08) M/mm3 Hgb 9.8 L D (13.7-17.5) gm/L Hct 30.6 L (40.1-51.0) % MCV 99.0 H (79.0-92.2) fl MCH 31.7 (25.7-32.2) pg MCHC 32.0 L (32.2-35.5) g/dl RDW Std Deviation 56.5 H (35.1-43.9) fL Plt Count 322 (163-337) K/mm3 MPV 9.6 (9.4-12.3) fl Neut % (Auto) (34.0-67.9) % Lymph % (Auto) (21.8-53.1) % [place] % (Auto) (5.3-12.2) % Eos % (Auto) (0.8-7.0) Baso % (Auto) (0.1-1.2) % Neut # (Auto) (1.78-5.38) K/mm3 Lymph # (Auto) (1.32-3.57) K/mm3 [place] # (Auto) (0.30-0.82) K/mm3 Eos # (Auto) (0.04-0.54) K/mm3 Baso # (Auto) (0.01-0.08) K/mm3 Neutrophils % (Manual) 78 H (40-60) % Band Neutrophils % 0 (0-10) % Lymphocytes % (Manual) 19 L (20-40) % Atypical Lymphs % 0 % Monocytes % (Manual) 1 L (2-10) % Eosinophils % (Manual) 1 (0.8-7.0) % Basophils % (Manual) 1 (0.2-1.2) Toxic Granulation 2+ moderate Platelet Estimate Adequate Plt Morphology Comment Normal Anisocytosis 1+ slight Microcytosis 1+ slight RBC Morph Comment Not Reportable PT (9.5-12.1) SECONDS INR Sodium 144 (136-145) mEq/L Potassium 3.0 L (3.5-5.1) mEq/L Chloride 105 (98-107) mEq/L Carbon Dioxide 25 (21-32) mEq/L Anion Gap 17.0 H (5-15) BUN 20 H (7-18) mg/dL Creatinine 0.8 (0.7-1.3) mg/dL Est Cr Clr Drug Dosing 74.65 mL/min Estimated GFR (MDRD) > 60 (>60) mL/min BUN/Creatinine Ratio 25.0 H (14-18) Glucose 100 (74-106) mg/dL Hemoglobin A1c (4.50-6.20) % Calcium 8.1 L (8.5-10.1) mg/dL Phosphorus (2.6-4.7) mg/dL Magnesium (1.8-2.4) mg/dl Total Bilirubin 0.6 (0.2-1.0) mg/dL AST 49 H (15-37) U/L ALT 46 (16-63) U/L Alkaline Phosphatase 102 (46-116) U/L Creatine Kinase (39-308) U/L Total Protein 5.9 L (6.4-8.2) g/dl Albumin 2.8 L (3.4-5.0) g/dl Globulin 3.1 gm/dL Albumin/Globulin Ratio 0.9 L (1-2) Lipase (73-393) U/L TSH 3rd Generation 1.647 (0.358-3.74) uIU/mL Salicylates 7.3 (2.8-20) mg/dL Urine Opiates Screen (UJFMOF=172) Ur Buprenorphine Scrn (CUTOFF=10) Ur Oxycodone Screen (RHS3VD=515) Urine Methadone Screen (LCJ9IT=556) Ur Propoxyphene Screen (DFPZNL=685) Acetaminophen 0 L (10-30) ug/mL Ur Barbiturates Screen (CLLGIJ=903) Ur Tricyclics Screen (SCCQWA=937) Ur Phencyclidine Scrn (CUTOFF=25) Ur Amphetamine Screen (GDCBCM=727) U Methamphetamines Scrn (TMKHRU=593) U Benzodiazepines Scrn (XFOIZX=729) U Cocaine Metab Screen (ONRXUY=930) U Marijuana (THC) Screen (CUTOFF=50) Ethyl Alcohol 0.01 (0.00) gm% 09/27/18 09/27/18 09/28/18 Range/Units 12:23 13:35 05:00 WBC (4.23-9.07) K/mm3 RBC (4.63-6.08) M/mm3 Hgb (13.7-17.5) gm/L Hct (40.1-51.0) % MCV (79.0-92.2) fl MCH (25.7-32.2) pg MCHC (32.2-35.5) g/dl RDW Std Deviation (35.1-43.9) fL Plt Count (163-337) K/mm3 MPV (9.4-12.3) fl Neut % (Auto) (34.0-67.9) % Lymph % (Auto) (21.8-53.1) % [place] % (Auto) (5.3-12.2) % Eos % (Auto) (0.8-7.0) Baso % (Auto) (0.1-1.2) % Neut # (Auto) (1.78-5.38) K/mm3 Lymph # (Auto) (1.32-3.57) K/mm3 [place] # (Auto) (0.30-0.82) K/mm3 Eos # (Auto) (0.04-0.54) K/mm3 Baso # (Auto) (0.01-0.08) K/mm3 Neutrophils % (Manual) (40-60) % Band Neutrophils % (0-10) % Lymphocytes % (Manual) (20-40) % Atypical Lymphs % % Monocytes % (Manual) (2-10) % Eosinophils % (Manual) (0.8-7.0) % Basophils % (Manual) (0.2-1.2) Toxic Granulation Platelet Estimate Plt Morphology Comment Anisocytosis Microcytosis RBC Morph Comment PT (9.5-12.1) SECONDS INR Sodium (136-145) mEq/L Potassium (3.5-5.1) mEq/L Chloride (98-107) mEq/L Carbon Dioxide (21-32) mEq/L Anion Gap (5-15) BUN (7-18) mg/dL Creatinine (0.7-1.3) mg/dL Est Cr Clr Drug Dosing mL/min Estimated GFR (MDRD) (>60) mL/min BUN/Creatinine Ratio (14-18) Glucose (74-106) mg/dL Hemoglobin A1c (4.50-6.20) % Calcium (8.5-10.1) mg/dL Phosphorus 2.4 L (2.6-4.7) mg/dL Magnesium 1.0 L 1.8 (1.8-2.4) mg/dl Total Bilirubin (0.2-1.0) mg/dL AST (15-37) U/L ALT (16-63) U/L Alkaline Phosphatase (46-116) U/L Creatine Kinase (39-308) U/L Total Protein (6.4-8.2) g/dl Albumin (3.4-5.0) g/dl Globulin gm/dL Albumin/Globulin Ratio (1-2) Lipase (73-393) U/L TSH 3rd Generation (0.358-3.74) uIU/mL Salicylates (2.8-20) mg/dL Urine Opiates Screen Negative (LRSMOZ=481) Ur Buprenorphine Scrn Negative (CUTOFF=10) Ur Oxycodone Screen Negative (JPN1MR=856) Urine Methadone Screen Negative (CLX4SJ=300) Ur Propoxyphene Screen Negative (UWVJAD=455) Acetaminophen (10-30) ug/mL Ur Barbiturates Screen Negative (DUTDEY=867) Ur Tricyclics Screen Negative (USDSBN=765) Ur Phencyclidine Scrn Negative (CUTOFF=25) Ur Amphetamine Screen Negative (IQITVB=829) U Methamphetamines Scrn Negative (CZGGLU=658) U Benzodiazepines Scrn Presumptive positive H (MSYKJO=787) U Cocaine Metab Screen Negative (IGIQJW=601) U Marijuana (THC) Screen Negative (CUTOFF=50) Ethyl Alcohol (0.00) gm% 09/28/18 09/28/18 09/28/18 Range/Units 05:00 05:00 05:00 WBC 4.68 (4.23-9.07) K/mm3 RBC 2.69 L (4.63-6.08) M/mm3 Hgb 8.5 L (13.7-17.5) gm/L Hct 27.2 L (40.1-51.0) % MCV 101.1 H (79.0-92.2) fl MCH 31.6 (25.7-32.2) pg MCHC 31.3 L (32.2-35.5) g/dl RDW Std Deviation 57.6 H (35.1-43.9) fL Plt Count 266 (163-337) K/mm3 MPV 10.1 (9.4-12.3) fl Neut % (Auto) 60.0 (34.0-67.9) % Lymph % (Auto) 32.1 (21.8-53.1) % [place] % (Auto) 4.5 L (5.3-12.2) % Eos % (Auto) 2.1 (0.8-7.0) Baso % (Auto) 0.4 (0.1-1.2) % Neut # (Auto) 2.81 (1.78-5.38) K/mm3 Lymph # (Auto) 1.50 (1.32-3.57) K/mm3 [place] # (Auto) 0.21 L (0.30-0.82) K/mm3 Eos # (Auto) 0.10 (0.04-0.54) K/mm3 Baso # (Auto) 0.02 (0.01-0.08) K/mm3 Neutrophils % (Manual) (40-60) % Band Neutrophils % (0-10) % Lymphocytes % (Manual) (20-40) % Atypical Lymphs % % Monocytes % (Manual) (2-10) % Eosinophils % (Manual) (0.8-7.0) % Basophils % (Manual) (0.2-1.2) Toxic Granulation Platelet Estimate Plt Morphology Comment Anisocytosis Microcytosis RBC Morph Comment PT 9.8 (9.5-12.1) SECONDS INR < 0.93 Sodium 143 (136-145) mEq/L Potassium 3.1 L (3.5-5.1) mEq/L Chloride 108 H (98-107) mEq/L Carbon Dioxide 25 (21-32) mEq/L Anion Gap 13.1 (5-15) BUN 14 (7-18) mg/dL Creatinine 0.6 L (0.7-1.3) mg/dL Est Cr Clr Drug Dosing 99.54 mL/min Estimated GFR (MDRD) > 60 (>60) mL/min BUN/Creatinine Ratio 23.3 H (14-18) Glucose 113 H (74-106) mg/dL Hemoglobin A1c (4.50-6.20) % Calcium 6.7 L (8.5-10.1) mg/dL Phosphorus (2.6-4.7) mg/dL Magnesium (1.8-2.4) mg/dl Total Bilirubin 0.5 (0.2-1.0) mg/dL AST 33 (15-37) U/L ALT 32 (16-63) U/L Alkaline Phosphatase 84 (46-116) U/L Creatine Kinase 67 (39-308) U/L Total Protein 4.7 L (6.4-8.2) g/dl Albumin 2.1 L (3.4-5.0) g/dl Globulin 2.6 gm/dL Albumin/Globulin Ratio 0.8 L (1-2) Lipase 758 H (73-393) U/L TSH 3rd Generation (0.358-3.74) uIU/mL Salicylates (2.8-20) mg/dL Urine Opiates Screen (UWECGV=028) Ur Buprenorphine Scrn (CUTOFF=10) Ur Oxycodone Screen (LXQ8QP=775) Urine Methadone Screen (UPJ1MU=584) Ur Propoxyphene Screen (TNKXOV=145) Acetaminophen (10-30) ug/mL Ur Barbiturates Screen (WVPIUX=615) Ur Tricyclics Screen (TOLNWD=213) Ur Phencyclidine Scrn (CUTOFF=25) Ur Amphetamine Screen (HUJKCV=516) U Methamphetamines Scrn (ZLJXJA=353) U Benzodiazepines Scrn (SUEAAX=172) U Cocaine Metab Screen (QXOBPV=131) U Marijuana (THC) Screen (CUTOFF=50) Ethyl Alcohol (0.00) gm% 09/28/18 Range/Units 05:00 WBC (4.23-9.07) K/mm3 RBC (4.63-6.08) M/mm3 Hgb (13.7-17.5) gm/L Hct (40.1-51.0) % MCV (79.0-92.2) fl MCH (25.7-32.2) pg MCHC (32.2-35.5) g/dl RDW Std Deviation (35.1-43.9) fL Plt Count (163-337) K/mm3 MPV (9.4-12.3) fl Neut % (Auto) (34.0-67.9) % Lymph % (Auto) (21.8-53.1) % [place] % (Auto) (5.3-12.2) % Eos % (Auto) (0.8-7.0) Baso % (Auto) (0.1-1.2) % Neut # (Auto) (1.78-5.38) K/mm3 Lymph # (Auto) (1.32-3.57) K/mm3 [place] # (Auto) (0.30-0.82) K/mm3 Eos # (Auto) (0.04-0.54) K/mm3 Baso # (Auto) (0.01-0.08) K/mm3 Neutrophils % (Manual) (40-60) % Band Neutrophils % (0-10) % Lymphocytes % (Manual) (20-40) % Atypical Lymphs % % Monocytes % (Manual) (2-10) % Eosinophils % (Manual) (0.8-7.0) % Basophils % (Manual) (0.2-1.2) Toxic Granulation Platelet Estimate Plt Morphology Comment Anisocytosis Microcytosis RBC Morph Comment PT (9.5-12.1) SECONDS INR Sodium (136-145) mEq/L Potassium (3.5-5.1) mEq/L Chloride (98-107) mEq/L Carbon Dioxide (21-32) mEq/L Anion Gap (5-15) BUN (7-18) mg/dL Creatinine (0.7-1.3) mg/dL Est Cr Clr Drug Dosing mL/min Estimated GFR (MDRD) (>60) mL/min BUN/Creatinine Ratio (14-18) Glucose (74-106) mg/dL Hemoglobin A1c 5.30 (4.50-6.20) % Calcium (8.5-10.1) mg/dL Phosphorus (2.6-4.7) mg/dL Magnesium (1.8-2.4) mg/dl Total Bilirubin (0.2-1.0) mg/dL AST (15-37) U/L ALT (16-63) U/L Alkaline Phosphatase (46-116) U/L Creatine Kinase (39-308) U/L Total Protein (6.4-8.2) g/dl Albumin (3.4-5.0) g/dl Globulin gm/dL Albumin/Globulin Ratio (1-2) Lipase (73-393) U/L TSH 3rd Generation (0.358-3.74) uIU/mL Salicylates (2.8-20) mg/dL Urine Opiates Screen (OLRNPT=374) Ur Buprenorphine Scrn (CUTOFF=10) Ur Oxycodone Screen (SXM7CC=606) Urine Methadone Screen (LHF4KB=914) Ur Propoxyphene Screen (MHAZOR=173) Acetaminophen (10-30) ug/mL Ur Barbiturates Screen (CGBTEG=998) Ur Tricyclics Screen (RWXNER=626) Ur Phencyclidine Scrn (CUTOFF=25) Ur Amphetamine Screen (TLUOQB=062) U Methamphetamines Scrn (XKDXEB=114) U Benzodiazepines Scrn (LLFLQP=763) U Cocaine Metab Screen (NUPLKJ=416) U Marijuana (THC) Screen (CUTOFF=50) Ethyl Alcohol (0.00) gm% Med Orders - Current: Current Medications Amlodipine Besylate (Norvasc) 5 mg PO DAILY [facility] Last Admin: 09/28/18 08:52 Dose: 5 mg Aspirin (Halfprin) 81 mg PO DAILY [facility] Last Admin: 09/28/18 08:51 Dose: 81 mg Atenolol (Tenormin) 50 mg PO DAILY [facility] Last Admin: 09/28/18 08:52 Dose: 50 mg Clonazepam (Klonopin) 1 mg PO TID [facility] Last Admin: 09/28/18 08:50 Dose: Not Given Enoxaparin Sodium (Lovenox) 40 mg SUBCUT Q24H [facility] Last Admin: 09/27/18 19:18 Dose: 40 mg Folic Acid (Folic Acid) 1 mg PO DAILY [facility] Last Admin: 09/28/18 08:52 Dose: 1 mg Hydrochlorothiazide (Hydrochlorothiazide) 25 mg PO DAILY [facility] Last Admin: 09/28/18 08:53 Dose: 25 mg Hydromorphone HCl (Dilaudid) 0.5 mg IVPUSH Q3H PRN PRN Reason: Pain (moderate 4-6) Last Admin: 09/28/18 10:29 Dose: 0.5 mg Dextrose/Sodium Chloride (Dextrose 5%-Normal Saline) 1,000 mls @ 125 mls/hr IV ASDIRECTED [facility] Last Admin: 09/28/18 10:41 Dose: 125 mls/hr Losartan Potassium (Cozaar) 100 mg PO DAILY [facility] Last Admin: 09/28/18 08:51 Dose: 100 mg Miscellaneous Information (Remove Patch) 1 ea TRDERM DAILY [facility] Last Admin: 09/28/18 08:55 Dose: 1 ea Nicotine (Habitrol) 21 mg TRDERM DAILY [facility] Last Admin: 09/28/18 08:42 Dose: 21 mg Ondansetron HCl (Zofran) 4 mg IVPUSH Q6H PRN PRN Reason: Nausea Simvastatin (Zocor) 10 mg PO BEDTIME [facility] Last Admin: 09/27/18 20:42 Dose: 10 mg Thiamine HCl (Vitamin B-1) 100 mg PO DAILY [facility] Last Admin: 09/28/18 08:47 Dose: 100 mg Discontinued Medications Clonazepam (Klonopin) 0.5 mg PO TID LINO Clonazepam (Klonopin) 0.5 mg PO BID LINO Clonazepam (Klonopin) 1 mg PO TID [facility] Last Admin: 09/28/18 08:47 Dose: 1 mg Hydromorphone HCl (Dilaudid) 0.5 mg IVPUSH Q4H PRN PRN Reason: Pain (moderate 4-6) Last Admin: 09/28/18 07:20 Dose: 0.5 mg Sodium Chloride (Normal Saline) 1,000 mls @ 999 mls/hr IV ONETIME ONE Stop: 09/27/18 12:15 Last Admin: 09/27/18 11:41 Dose: 999 mls/hr Magnesium Sulfate 2 gm/ Premix 50 mls @ 50 mls/hr IV ONETIME ONE Stop: 09/27/18 14:20 Last Admin: 09/27/18 13:49 Dose: 50 mls/hr Magnesium Sulfate 2 gm/ Premix 50 mls @ 25 mls/hr IV ONETIME ONE Stop: 09/27/18 18:55 Last Admin: 09/27/18 19:28 Dose: Not Given Magnesium Sulfate 2 gm/ Premix 50 mls @ 25 mls/hr IV Q1H [facility] Stop: 09/27/18 18:59 Last Admin: 09/27/18 19:47 Dose: 25 mls/hr Magnesium Sulfate 2 gm/ Premix 50 mls @ 25 mls/hr IV ONETIME ONE Stop: 09/28/18 08:59 Last Admin: 09/28/18 06:57 Dose: 25 mls/hr Potassium Chloride 10 meq/ (Premix) 100 mls @ 100 mls/hr IV Q1H [facility] Stop: 09/28/18 10:59 Last Admin: 09/28/18 10:25 Dose: 100 mls/hr Ibuprofen (Motrin) 600 mg PO ONETIME ONE Stop: 09/27/18 14:24 Last Admin: 09/27/18 14:32 Dose: 600 mg Pneumococcal Polyvalent Vaccine (Pneumovax 23) 0.5 ml IM .ONCE ONE Stop: 09/27/18 17:14 Potassium Chloride (Klor-Con M20) 60 meq PO ONETIME ONE Stop: 09/28/18 07:01 Last Admin: 09/28/18 07:22 Dose: 60 meq - Exam Physical Findings Comments:: General: Alert, Oriented, Cooperative HEENT: Conjunctiva Clear, EOMI, Pupils Equal Neck: Supple, Trachea Midline Lungs: Clear to Auscultation, Normal Respiratory Effort. No: Crackles Cardiovascular: Regular Rate, Regular Rhythm, Normal S1, Normal S2, Tachycardia GI/Abdominal Exam: Normal Bowel Sounds, Soft, Non-Tender, No Distention Extremities: Other (left arm sling) Peripheral Pulses: 2+: Dorsalis Pedis (R) Skin: Warm, Dry, Intact Neuro Extensive - Mental Status: Oriented x3, Normal Cognition Neuro Extensive - Motor, Sensory, Reflexes: CN II-XII Intact, Tremor. No: Motor /Sensory Deficits Psychiatric: Alert, Anxious - Problem List & Annotations (1) Alcohol withdrawal SNOMED Code(s): 554423923 Code(s): F10.239 - ALCOHOL DEPENDENCE WITH WITHDRAWAL, UNSPECIFIED Status: Acute Priority: High Current Visit: Yes (2) Hypomagnesemia SNOMED Code(s): 347464652 Code(s): E83.42 - HYPOMAGNESEMIA Status: Acute Priority: High Current Visit: Yes (3) Essential hypertension SNOMED Code(s): 26007171 Code(s): I10 - ESSENTIAL (PRIMARY) HYPERTENSION Status: Acute Priority: High Current Visit: Yes - Problem List Review Problem List Initiated/Reviewed/Updated: Yes - My Orders Last 24 Hours: My Active Orders 09/27/18 16:14 Patient Status [ADT] Routine 09/27/18 16:55 Resuscitation Status Stat 09/27/18 16:56 Ondansetron [Zofran] 4 mg IVPUSH Q6H PRN 09/27/18 17:00 Bedrest Bathroom Privileges [RC] ASDIRECTED Dextrose 5%-0.9% NaCl [Dextrose 5%-Normal Saline] 1,000 ml IV ASDIRECTED Enoxaparin [Lovenox] 40 mg SUBCUT Q24H Folic Acid 1 mg PO DAILY 09/27/18 17:15 Thiamine [Vitamin B-1] 100 mg PO DAILY amLODIPine [Norvasc] 5 mg PO DAILY 09/27/18 18:15 Nicotine [Habitrol] 21 mg TRDERM DAILY 09/27/18 21:00 Simvastatin [Zocor] 10 mg PO BEDTIME 09/28/18 09:00 Aspirin [Halfprin] 81 mg PO DAILY Atenolol [Tenormin] 50 mg PO DAILY ClonazePAM [KlonoPIN] 1 mg PO TID Losartan [Cozaar] 100 mg PO DAILY Remove Patch 1 ea TRDERM DAILY hydroCHLOROthiazide 25 mg PO DAILY 09/28/18 09:54 HYDROmorphone [Dilaudid] 0.5 mg IVPUSH Q3H PRN 09/28/18 10:59 Consult to Spiritual Care [CONS] Routine 09/28/18 11:01 Communication Order [RC] ROUTINE Consult for Substance Abuse [CONS] Routine 09/28/18 Breakfast Regular Diet [DIET] - Plan Plan:: 1. IVF, thiamine, folate, benzodiazepine. 2. Magnesium replacement and follow up. 3. Resume home BBL, CCB, ACEi. 4. DVTP - LMWH.
[2018-09-28] MEDS: Enoxaparin 40 MG/0.4 ML Syringe SUBCUT SCH (16:51)
[2018-09-28] MEDS: Simvastatin 10 MG Tab PO SCH (21:51)
[2018-09-29] MEDS: HYDROmorphone 0.5 MG/0.5 ML Syringe IVPUSH PRN (02:30)
[2018-09-29] MEDS: Dextrose 5%-0.9% NaCl 1,000 ML IV SCH (05:30)
--- NOTE | 2018-09-29 07:26 | PCM.PN ---
<Byron Mcleod - Last Filed: 09/29/18 10:59> - General Info Date of Service: 09/29/18 Admission Dx/Problem (Free Text): ETOH abuse, Hypomagnesemia Subjective Update: 52 yo WM with h/o alcoholism, HTN, dyslipidemia admitted through ED after declining functional status, falls, left shoulder trauma. Was also found to have Mg level at 1.0. Admitted for further treatment for alcohol withdrawal, severe hypomagnesemia. 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 09/29/18. In to see David with Dr. Escobar. He is lying in bed with sling on shoulder. He reports continued shoulder pain. Magnesium improved yesterday but was down today. Will supplement and start on daily PO supplementation tomorrow. Will decrease clonidine dosing and stop IV pain medications, transitioning to oral. We discussed his seizure history. He reports prior seizures while detoxing. CIWAs have been low. Will monitor for one more day and then plan for discharge to [facility] tomorrow pending continued progress. He was downgraded to M/S/P status yesterday. Functional Status: Reports: Pain Controlled, Tolerating Diet, Ambulating, Urinating. Denies: New Symptoms - Review of Systems General: Reports: No Symptoms. Denies: Fever, Weakness, Fatigue, Malaise, Chills HEENT: Reports: No Symptoms. Denies: Headaches, Sore Throat Pulmonary: Reports: No Symptoms. Denies: Shortness of Breath, Cough, Sputum, Wheezing Cardiovascular: Reports: No Symptoms. Denies: Chest Pain, Palpitations, Dyspnea on Exertion, Edema Gastrointestinal: Reports: No Symptoms. Denies: Abdominal Pain, Constipation, Diarrhea, Nausea, Vomiting Genitourinary: Reports: No Symptoms. Denies: Pain Musculoskeletal: Reports: Shoulder Pain Skin: Reports: No Symptoms. Denies: Cyanosis Neurological: Reports: No Symptoms. Denies: Confusion Psychiatric: Reports: No Symptoms - Patient Data Vitals - Most Recent: Last Vital Signs Temp 97.6 F 09/29/18 02:40 Pulse 86 09/29/18 02:40 Resp 16 09/29/18 02:40 BP 106/74 09/29/18 02:40 Pulse Ox 95 05/21/19 03:45 Orthostatic Blood Pressure [ 215/94 Standing] Orthostatic Blood Pressure [ 185/99 Sitting] Orthostatic Blood Pressure [ 171/95 Supine] Weight - Most Recent: 147 lb 1.6 oz I&O - Last 24 Hours: Intake & Output 09/28/18 09/29/18 09/29/18 22:59 06:59 14:59 Intake Total 2022 133 Balance 2022 133 Lab Results Last 24 Hours: Laboratory Results - last 24 hr 09/28/18 09/29/18 09/29/18 Range/Units 05:00 04:40 04:40 Sodium 143 (136-145) mEq/L Potassium 4.4 (3.5-5.1) mEq/L Chloride 111 H (98-107) mEq/L Carbon Dioxide 24 (21-32) mEq/L Anion Gap 12.4 (5-15) BUN 11 (7-18) mg/dL Creatinine 0.6 L (0.7-1.3) mg/dL Est Cr Clr Drug Dosing 99.54 mL/min Estimated GFR (MDRD) > 60 (>60) mL/min BUN/Creatinine Ratio 18.3 H (14-18) Glucose 108 H (74-106) mg/dL Hemoglobin A1c 5.30 (4.50-6.20) % Calcium 7.1 L (8.5-10.1) mg/dL Phosphorus 2.9 (2.6-4.7) mg/dL Magnesium 1.5 L (1.8-2.4) mg/dl Med Orders - Current: Current Medications Amlodipine Besylate (Norvasc) 5 mg PO DAILY [facility] Last Admin: 09/28/18 08:52 Dose: 5 mg Aspirin (Halfprin) 81 mg PO DAILY [facility] Last Admin: 09/28/18 08:51 Dose: 81 mg Atenolol (Tenormin) 50 mg PO DAILY [facility] Last Admin: 09/28/18 08:52 Dose: 50 mg Clonazepam (Klonopin) 1 mg PO TID [facility] Last Admin: 09/28/18 21:51 Dose: 1 mg Enoxaparin Sodium (Lovenox) 40 mg SUBCUT Q24H [facility] Last Admin: 09/28/18 16:51 Dose: 40 mg Folic Acid (Folic Acid) 1 mg PO DAILY [facility] Last Admin: 09/28/18 08:52 Dose: 1 mg Hydrochlorothiazide (Hydrochlorothiazide) 25 mg PO DAILY [facility] Last Admin: 09/28/18 08:53 Dose: 25 mg Hydromorphone HCl (Dilaudid) 0.5 mg IVPUSH Q3H PRN PRN Reason: Pain (moderate 4-6) Last Admin: 09/29/18 02:30 Dose: 0.5 mg Dextrose/Sodium Chloride (Dextrose 5%-Normal Saline) 1,000 mls @ 125 mls/hr IV ASDIRECTED [facility] Last Admin: 09/29/18 05:30 Dose: 125 mls/hr Losartan Potassium (Cozaar) 100 mg PO DAILY [facility] Last Admin: 09/28/18 08:51 Dose: 100 mg Miscellaneous Information (Remove Patch) 1 ea TRDERM DAILY [facility] Last Admin: 09/28/18 08:55 Dose: 1 ea Nicotine (Habitrol) 21 mg TRDERM DAILY [facility] Last Admin: 09/28/18 08:42 Dose: 21 mg Ondansetron HCl (Zofran) 4 mg IVPUSH Q6H PRN PRN Reason: Nausea Simvastatin (Zocor) 10 mg PO BEDTIME [facility] Last Admin: 09/28/18 21:51 Dose: 10 mg Thiamine HCl (Vitamin B-1) 100 mg PO DAILY [facility] Last Admin: 09/28/18 08:47 Dose: 100 mg Discontinued Medications Clonazepam (Klonopin) 0.5 mg PO TID [facility] Clonazepam (Klonopin) 0.5 mg PO BID [facility] Clonazepam (Klonopin) 1 mg PO TID [facility] Last Admin: 09/28/18 08:47 Dose: 1 mg Hydromorphone HCl (Dilaudid) 0.5 mg IVPUSH Q4H PRN PRN Reason: Pain (moderate 4-6) Last Admin: 09/28/18 07:20 Dose: 0.5 mg Sodium Chloride (Normal Saline) 1,000 mls @ 999 mls/hr IV ONETIME ONE Stop: 09/27/18 12:15 Last Admin: 09/27/18 11:41 Dose: 999 mls/hr Magnesium Sulfate 2 gm/ Premix 50 mls @ 50 mls/hr IV ONETIME ONE Stop: 09/27/18 14:20 Last Admin: 09/27/18 13:49 Dose: 50 mls/hr Magnesium Sulfate 2 gm/ Premix 50 mls @ 25 mls/hr IV ONETIME ONE Stop: 09/27/18 18:55 Last Admin: 09/27/18 19:28 Dose: Not Given Magnesium Sulfate 2 gm/ Premix 50 mls @ 25 mls/hr IV Q1H [facility] Stop: 09/27/18 18:59 Last Admin: 09/27/18 19:47 Dose: 25 mls/hr Magnesium Sulfate 2 gm/ Premix 50 mls @ 25 mls/hr IV ONETIME ONE Stop: 09/28/18 08:59 Last Admin: 09/28/18 06:57 Dose: 25 mls/hr Potassium Chloride 10 meq/ (Premix) 100 mls @ 100 mls/hr IV Q1H [facility] Stop: 09/28/18 10:59 Last Admin: 09/28/18 10:25 Dose: 100 mls/hr Ibuprofen (Motrin) 600 mg PO ONETIME ONE Stop: 09/27/18 14:24 Last Admin: 09/27/18 14:32 Dose: 600 mg Pneumococcal Polyvalent Vaccine (Pneumovax 23) 0.5 ml IM .ONCE ONE Stop: 09/27/18 17:14 Potassium Chloride (Klor-Con M20) 60 meq PO ONETIME ONE Stop: 09/28/18 07:01 Last Admin: 09/28/18 07:22 Dose: 60 meq - Exam Quality Assessment: DVT Prophylaxis General: Alert, Oriented, Cooperative, No Acute Distress HEENT: Pupils Equal, Pupils Reactive, EOMI, Mucous Membr. Moist/[place] Neck: Supple, Trachea Midline, No JVD Lungs: Clear to Auscultation, Normal Respiratory Effort Cardiovascular: Regular Rate, Regular Rhythm GI/Abdominal Exam: Normal Bowel Sounds, Soft, Non-Tender, No Distention, No Abnormal Bruit (Male) Exam: Deferred Back Exam: Normal Inspection, Full Range of Motion Extremities: Normal Inspection, Normal Range of Motion, Non-Tender, No Pedal Edema, Normal Capillary Refill Peripheral Pulses: 2+: Radial (L), Radial (R), Dorsalis Pedis (L), Dorsalis Pedis (R) Skin: Warm, Dry, Intact Neurological: No New Focal Deficit Psy/Mental Status: Alert, Normal Affect, Normal Mood - Problem List & Annotations (1) Alcohol withdrawal SNOMED Code(s): 609489183 Code(s): F10.239 - ALCOHOL DEPENDENCE WITH WITHDRAWAL, UNSPECIFIED Status: Acute Priority: High Current Visit: Yes (2) Closed fracture of proximal end of left humerus SNOMED Code(s): 23870028 Code(s): S42.A - UNSP FRACTURE OF UPPER END OF LEFT HUMERUS, INIT FOR CLOS FX Status: Acute Current Visit: Yes (3) Essential hypertension SNOMED Code(s): 30143526 Code(s): I10 - ESSENTIAL (PRIMARY) HYPERTENSION Status: Acute Priority: High Current Visit: Yes (4) Hypomagnesemia SNOMED Code(s): 377509054 Code(s): E83.42 - HYPOMAGNESEMIA Status: Acute Priority: High Current Visit: Yes - Problem List Review Problem List Initiated/Reviewed/Updated: Yes - Plan Plan:: 1. IVF, thiamine, folate, benzodiazepine, CIWA protocol. 2. Magnesium replacement and follow up. 3. Resume home BBL, CCB, ACEi. 4. DVTP - LMWH. <Jemal Escobar - Last Filed: 09/29/18 13:46> - Patient Data Vitals - Most Recent: Last Vital Signs Temp 97.9 F 09/29/18 11:56 Pulse 84 09/29/18 11:56 Resp 18 09/29/18 11:56 BP 128/73 09/29/18 11:56 Pulse Ox 99 09/29/18 11:56 Orthostatic Blood Pressure [ 215/94 Standing] Orthostatic Blood Pressure [ 185/99 Sitting] Orthostatic Blood Pressure [ 171/95 Supine] I&O - Last 24 Hours: Intake & Output 09/28/18 09/29/18 09/29/18 22:59 06:59 14:59 Intake Total 2022 133 Balance 2022 1331 Lab Results Last 24 Hours: Laboratory Results - last 24 hr 09/29/18 09/29/18 Range/Units 04:40 04:40 Sodium 143 (136-145) mEq/L Potassium 4.4 (3.5-5.1) mEq/L Chloride 111 H (98-107) mEq/L Carbon Dioxide 24 (21-32) mEq/L Anion Gap 12.4 (5-15) BUN 11 (7-18) mg/dL Creatinine 0.6 L (0.7-1.3) mg/dL Est Cr Clr Drug Dosing 99.54 mL/min Estimated GFR (MDRD) > 60 (>60) mL/min BUN/Creatinine Ratio 18.3 H (14-18) Glucose 108 H (74-106) mg/dL Calcium 7.1 L (8.5-10.1) mg/dL Phosphorus 2.9 (2.6-4.7) mg/dL Magnesium 1.5 L (1.8-2.4) mg/dl Med Orders - Current: Current Medications Hydrocodone Bitart/Acetaminophen (Foster 325-5 Mg) 1 tab PO Q6H PRN PRN Reason: Pain (moderate 4-6) Amlodipine Besylate (Norvasc) 5 mg PO DAILY [facility] Last Admin: 09/29/18 09:20 Dose: 5 mg Aspirin (Halfprin) 81 mg PO DAILY [facility] Last Admin: 09/29/18 09:18 Dose: 81 mg Atenolol (Tenormin) 50 mg PO DAILY [facility] Last Admin: 09/29/18 09:20 Dose: 50 mg Clonazepam (Klonopin) 1 mg PO BID [facility] Enoxaparin Sodium (Lovenox) 40 mg SUBCUT Q24H [facility] Last Admin: 09/28/18 16:51 Dose: 40 mg Folic Acid (Folic Acid) 1 mg PO DAILY [facility] Last Admin: 09/29/18 09:18 Dose: 1 mg Hydrochlorothiazide (Hydrochlorothiazide) 25 mg PO DAILY [facility] Last Admin: 09/29/18 09:20 Dose: 25 mg Lorazepam (Ativan) 0 mg IVPUSH Q4H PRN; Protocol PRN Reason: withdrawl Losartan Potassium (Cozaar) 100 mg PO DAILY [facility] Last Admin: 09/29/18 09:18 Dose: 100 mg Magnesium Oxide (Magnesium Oxide) 400 mg PO DAILY [facility] Miscellaneous Information (Remove Patch) 1 ea TRDERM DAILY [facility] Last Admin: 09/29/18 09:20 Dose: 1 ea Nicotine (Habitrol) 21 mg TRDERM DAILY [facility] Last Admin: 09/29/18 09:17 Dose: 21 mg Ondansetron HCl (Zofran) 4 mg IVPUSH Q6H PRN PRN Reason: Nausea Simvastatin (Zocor) 10 mg PO BEDTIME [facility] Last Admin: 09/28/18 21:51 Dose: 10 mg Thiamine HCl (Vitamin B-1) 100 mg PO DAILY [facility] Last Admin: 09/29/18 09:18 Dose: 100 mg Discontinued Medications Hydrocodone Bitart/Acetaminophen (Foster 325-5 Mg) 1 tab PO Q4H PRN PRN Reason: Pain (moderate 4-6) Last Admin: 09/29/18 09:17 Dose: 1 tab Clonazepam (Klonopin) 0.5 mg PO TID [facility] Clonazepam (Klonopin) 0.5 mg PO BID [facility] Clonazepam (Klonopin) 1 mg PO TID [facility] Last Admin: 09/28/18 08:47 Dose: 1 mg Clonazepam (Klonopin) 1 mg PO TID [facility] Last Admin: 09/29/18 09:18 Dose: 1 mg Hydromorphone HCl (Dilaudid) 0.5 mg IVPUSH Q4H PRN PRN Reason: Pain (moderate 4-6) Last Admin: 09/28/18 07:20 Dose: 0.5 mg Hydromorphone HCl (Dilaudid) 0.5 mg IVPUSH Q3H PRN PRN Reason: Pain (moderate 4-6) Last Admin: 09/29/18 02:30 Dose: 0.5 mg Sodium Chloride (Normal Saline) 1,000 mls @ 999 mls/hr IV ONETIME ONE Stop: 09/27/18 12:15 Last Admin: 09/27/18 11:41 Dose: 999 mls/hr Magnesium Sulfate 2 gm/ Premix 50 mls @ 50 mls/hr IV ONETIME ONE Stop: 09/27/18 14:20 Last Admin: 09/27/18 13:49 Dose: 50 mls/hr Dextrose/Sodium Chloride (Dextrose 5%-Normal Saline) 1,000 mls @ 125 mls/hr IV ASDIRECTED [facility] Last Admin: 09/29/18 05:30 Dose: 125 mls/hr Magnesium Sulfate 2 gm/ Premix 50 mls @ 25 mls/hr IV ONETIME ONE Stop: 09/27/18 18:55 Last Admin: 09/27/18 19:28 Dose: Not Given Magnesium Sulfate 2 gm/ Premix 50 mls @ 25 mls/hr IV Q1H [facility] Stop: 09/27/18 18:59 Last Admin: 09/27/18 19:47 Dose: 25 mls/hr Magnesium Sulfate 2 gm/ Premix 50 mls @ 25 mls/hr IV ONETIME ONE Stop: 09/28/18 08:59 Last Admin: 09/28/18 06:57 Dose: 25 mls/hr Potassium Chloride 10 meq/ (Premix) 100 mls @ 100 mls/hr IV Q1H [facility] Stop: 09/28/18 10:59 Last Admin: 09/28/18 10:25 Dose: 100 mls/hr Magnesium Sulfate 2 gm/ Premix 50 mls @ 25 mls/hr IV ONETIME ONE Stop: 09/29/18 11:38 Last Admin: 09/29/18 10:34 Dose: 25 mls/hr Ibuprofen (Motrin) 600 mg PO ONETIME ONE Stop: 09/27/18 14:24 Last Admin: 09/27/18 14:32 Dose: 600 mg Pneumococcal Polyvalent Vaccine (Pneumovax 23) 0.5 ml IM .ONCE ONE Stop: 09/27/18 17:14 Potassium Chloride (Klor-Con M20) 60 meq PO ONETIME ONE Stop: 09/28/18 07:01 Last Admin: 09/28/18 07:22 Dose: 60 meq - Plan Plan:: patient seen in conjunction with ALLIE Rutledge. I agree with assessment and plan.
--- NOTE | 2018-09-29 08:01 | PCM.DCSUM1 ---
Discharge Summary - Hospital Course HPI Initial Comments: 52 yo WM with h/o alcoholism, HTN, dyslipidemia admitted through ED after declining functional status, falls, left shoulder trauma. Was also found to have Mg level at 1.0. Admitted for further treatment for alcohol withdrawal, severe hypomagnesemia. Diagnosis: Stroke: No - Discharge Data Discharge Date: 09/30/18 (Admit date: 09/27/18) Discharge Disposition: DC/Tfer to Other 70 Condition: Good - Discharge Diagnosis/Problem(s) (1) Alcoholism SNOMED Code(s): 1377703 ICD Code: F10.20 - ALCOHOL DEPENDENCE, UNCOMPLICATED Status: Chronic Priority: High Current Visit: Yes (2) Closed fracture of proximal end of left humerus SNOMED Code(s): 28883926 ICD Code: S42.202A - UNSP FRACTURE OF UPPER END OF LEFT HUMERUS, INIT FOR CLOS FX Status: Acute Priority: High Current Visit: Yes (3) Essential hypertension SNOMED Code(s): 49024100 ICD Code: I10 - ESSENTIAL (PRIMARY) HYPERTENSION Status: Acute Priority: High Current Visit: Yes (4) Hypomagnesemia SNOMED Code(s): 474539509 ICD Code: E83.42 - HYPOMAGNESEMIA Status: Acute Priority: High Current Visit: Yes (5) Alcohol-induced pancreatitis SNOMED Code(s): 853789291 ICD Code: K85.20 - ALCOHOL INDUCED ACUTE PANCREATITIS WITHOUT NECROSIS OR INFCT Status: Acute Priority: Medium Current Visit: Yes Qualifiers: Chronicity: acute Acute pancreatitis complication: unspecified Qualified Code(s): K85.20 - Alcohol induced acute pancreatitis without necrosis or infection - Patient Summary/Data Consults: Consultations 09/28/18 10:59 Consult to Spiritual Care [CONS] Routine 09/28/18 11:01 Consult for Substance Abuse [CONS] Routine Labs Pending at D/C: None Recommended Follow-up Testing/Procedures: Follow-up with PCP within 7-10 days. Follow-up with DONNA/Suzanna upon discharge as directed. Follow-up with Dr. Bar as we discussed. Hospital Course: 09/28/18, hypomagnesemia persists, continue to replace, tolerates withdrawal tremor, will change hydromorphone dosing to q3h, medical social consultant involved. 09/29/18. In to see David with Dr. Escobar. He is lying in bed with sling on shoulder. He reports continued shoulder pain. Magnesium improved yesterday but was down today. Will supplement and start on daily PO supplementation tomorrow. Will decrease clonidine dosing and stop IV pain medications, transitioning to oral. We discussed his seizure history. He reports prior seizures while detoxing. CIWAs have been low. Will monitor for one more day and then plan for discharge to [facility] tomorrow pending continued progress. He was downgraded to M/S/P status yesterday. 09/30/18: Discharge today David was brought in on 09/27/18 with hypomagnesemia and chronic ETOH use. He reports his drink of choice is shots of Vodka and he drinks anywhere from 4-10 nightly. He was started on folic acid, thiamine, Clonazepam, and his magnesium was supplemented via IV. His CIWAs remained relatively low and were elevated mostly from anxiety and agitation 2/2 changes in pain meds. He has a left proximal humerus fracture and a sling was applied by the ED provider. He reports this happened 2-3 weeks prior after falling 2/2 intoxication. He has been here before for detox and presented to our ED from [facility] for clearance as well. He has been frequently requesting pain medications and these have been weaned, although he has not been in total agreement with this plan and frequently requesting increased dosing and frequency. We have weaned him down on Clonazepam. [facility] did come evaluate him and felt he was best suited for [facility] at discharge. David reports he has been to [facility] in the past and was sober for a short time after completing treatment there. His magnesium remained low while here and was supplemented. He was to receive 4gm supplementation while here but refused prior to discharge. He was quite upset that he was not getting more frequent pain medications for his arm/shoulder pain. He will be discharged today. He reported his plan is to go home and pay some bills and then report to [facility] in 24 hours. It was communicated to him that this is likely not a good idea as he has attempted this plan in the past and failed. He was warned that if he presents intoxicated to our ED again he will likely be committed to inpatient treatment. He voiced understanding of this. He will be discharged today with the plan to present to [facility] after discharge. Discussed discharge medications with Dr. Escobar. He was prescribed 3 days worth of BID norco for arm pain along with 3 days of 0.5mg BID Clonazepam. He will also be discharged on daily folic acid and thiamine. We have had some difficulty maintaining an adequate magnesium level and he will be discharged on 5 days of PO supplementation for this. He does have several medications listed on his home list which he reports he has not taken in several months. These were discontinued. He was instructed to follow-up with his PCP within one week of discharge and ortho within 7-14 days. He did report he sees Dr. Bar, psychiatry every 6 months and he thinks he is due to follow-up with her very soon. He was instructed to follow-up with her as scheduled as she may recommend some new medications and will be best to determine how and what psychiatric meds are best for him. He did visit with an AA rep on the floor and was advised to continue this on discharge. He was advised to follow-up with his PCP or return to the Emergency Department should symptoms return or worsen. No seizure activity was noted while here. - Patient Instructions Diet: Heart Healthy Diet Activity: As Tolerated Showering/Bathing: May Shower Notify Provider of: Fever, Increased Pain, Nausea and/or Vomiting - Discharge Plan *PRESCRIPTION DRUG MONITORING PROGRAM REVIEWED*: Not Applicable *COPY OF PRESCRIPTION DRUG MONITORING REPORT IN PATIENT MOOSE: Not Applicable Prescriptions/Med Rec: Acetaminophen/HYDROcodone [Lepanto 325-5 MG] 1 tab PO Q12H #6 tablet ClonazePAM [KlonoPIN] 0.5 mg PO BID #7 tab Folic Acid 1 mg PO DAILY #20 tablet Magnesium Oxide 400 mg PO DAILY #5 tablet Thiamine [Vitamin B-1] 100 mg PO DAILY #10 tablet Home Medications: Home Meds Aspirin [Adult Low Dose Aspirin EC] 81 mg PO DAILY 06/09/17 [History] Bisoprolol/Hydrochlorothiazide [Bisoprolol/HCTZ 5-6.25 MG] 1 tab PO DAILY [History] Losartan Potassium 100 mg PO DAILY 06/09/17 [History] Pravastatin Sodium 20 mg PO DAILY 06/09/17 [History] amLODIPine Besylate [Amlodipine Besylate] 5 mg PO DAILY 06/09/17 [History] Ascorbate Calcium [Vitamin C] 500 mg PO DAILY 09/27/18 [History] Citalopram Hydrobromide [Celexa] 30 mg PO DAILY 09/27/18 [History] Acetaminophen/HYDROcodone [Lepanto 325-5 MG] 1 tab PO Q12H #6 tablet 09/30/18 [Rx] ClonazePAM [KlonoPIN] 0.5 mg PO BID #7 tab 09/30/18 [Rx] Folic Acid 1 mg PO DAILY #20 tablet 09/30/18 [Rx] Magnesium Oxide 400 mg PO DAILY #5 tablet 09/30/18 [Rx] Thiamine [Vitamin B-1] 100 mg PO DAILY #10 tablet 09/30/18 [Rx] Oxygen Therapy Mode: Room Air Patient Handouts: Alcohol Use Disorder, Recovering From Addiction, Steps to Quit Smoking, Alcohol Withdrawal Syndrome, [id number] Referrals: Torito Rahman MD [Physician] - (The clinic will be calling you within 1-2 weeks for a follow up appointment for arm fracture.) John Ball MD [Primary Care Provider] - 10/09/18 2:30 pm (please attend the scheduled follow up appointment with Dr. Ball as listed.) - Discharge Summary/Plan Comment DC Time >30 min.: Yes (45 minutes ) - General Info Date of Service: 09/30/18 Admission Dx/Problem (Free Text: ETOH abuse, Hypomagnesemia Functional Status: Reports: Pain Controlled, Tolerating Diet, Ambulating, Urinating. Denies: New Symptoms - Review of Systems General: Reports: No Symptoms. Denies: Fever, Weakness, Fatigue, Malaise HEENT: Reports: No Symptoms. Denies: Headaches, Sore Throat Pulmonary: Reports: No Symptoms. Denies: Shortness of Breath, Cough, Sputum, Wheezing Cardiovascular: Reports: No Symptoms. Denies: Chest Pain, Dyspnea on Exertion, Edema Gastrointestinal: Reports: No Symptoms. Denies: Abdominal Pain, Constipation, Diarrhea, Nausea, Vomiting Genitourinary: Reports: No Symptoms. Denies: Pain Musculoskeletal: Reports: Arm Pain (Left 2/2 fracture ) Skin: Reports: No Symptoms. Denies: Cyanosis Neurological: Reports: No Symptoms. Denies: Confusion, Trouble Speaking, Difficulty Walking, Weakness, Gait Disturbance Psychiatric: Reports: No Symptoms. Denies: Confusion, Hallucinations - Patient Data Vitals - Most Recent: Last Vital Signs Temp 97.6 F 09/29/18 02:40 Pulse 86 09/29/18 02:40 Resp 16 09/29/18 02:40 BP 106/74 09/29/18 02:40 Pulse Ox 95 09/29/18 03:45 Orthostatic Blood Pressure [ 215/94 Standing] Orthostatic Blood Pressure [ 185/99 Sitting] Orthostatic Blood Pressure [ 171/95 Supine] Weight - Most Recent: 147 lb 1.6 oz I&O - Last 24 hours: Intake & Output 09/28/18 09/29/18 09/29/18 22:59 06:59 14:59 Intake Total 2022 133 Balance 2022 1331 Lab Results - Last 24 hrs: Laboratory Results - last 24 hr 09/29/18 09/29/18 Range/Units 04:40 04:40 Sodium 143 (136-145) mEq/L Potassium 4.4 (3.5-5.1) mEq/L Chloride 111 H (98-107) mEq/L Carbon Dioxide 24 (21-32) mEq/L Anion Gap 12.4 (5-15) BUN 11 (7-18) mg/dL Creatinine 0.6 L (0.7-1.3) mg/dL Est Cr Clr Drug Dosing 99.54 mL/min Estimated GFR (MDRD) > 60 (>60) mL/min BUN/Creatinine Ratio 18.3 H (14-18) Glucose 108 H (74-106) mg/dL Calcium 7.1 L (8.5-10.1) mg/dL Phosphorus 2.9 (2.6-4.7) mg/dL Magnesium 1.5 L (1.8-2.4) mg/dl Med Orders - Current: Current Medications Amlodipine Besylate (Norvasc) 5 mg PO DAILY [facility] Last Admin: 09/28/18 08:52 Dose: 5 mg Aspirin (Halfprin) 81 mg PO DAILY [facility] Last Admin: 09/28/18 08:51 Dose: 81 mg Atenolol (Tenormin) 50 mg PO DAILY [facility] Last Admin: 09/28/18 08:52 Dose: 50 mg Clonazepam (Klonopin) 1 mg PO TID [facility] Last Admin: 09/28/18 21:51 Dose: 1 mg Enoxaparin Sodium (Lovenox) 40 mg SUBCUT Q24H [facility] Last Admin: 09/28/18 16:51 Dose: 40 mg Folic Acid (Folic Acid) 1 mg PO DAILY [facility] Last Admin: 09/28/18 08:52 Dose: 1 mg Hydrochlorothiazide (Hydrochlorothiazide) 25 mg PO DAILY [facility] Last Admin: 09/28/18 08:53 Dose: 25 mg Hydromorphone HCl (Dilaudid) 0.5 mg IVPUSH Q3H PRN PRN Reason: Pain (moderate 4-6) Last Admin: 09/29/18 02:30 Dose: 0.5 mg Dextrose/Sodium Chloride (Dextrose 5%-Normal Saline) 1,000 mls @ 125 mls/hr IV ASDIRECTED [facility] Last Admin: 09/29/18 05:30 Dose: 125 mls/hr Losartan Potassium (Cozaar) 100 mg PO DAILY [facility] Last Admin: 09/28/18 08:51 Dose: 100 mg Miscellaneous Information (Remove Patch) 1 ea TRDERM DAILY [facility] Last Admin: 09/28/18 08:55 Dose: 1 ea Nicotine (Habitrol) 21 mg TRDERM DAILY [facility] Last Admin: 09/28/18 08:42 Dose: 21 mg Ondansetron HCl (Zofran) 4 mg IVPUSH Q6H PRN PRN Reason: Nausea Simvastatin (Zocor) 10 mg PO BEDTIME [facility] Last Admin: 09/28/18 21:51 Dose: 10 mg Thiamine HCl (Vitamin B-1) 100 mg PO DAILY [facility] Last Admin: 09/28/18 08:47 Dose: 100 mg Discontinued Medications Clonazepam (Klonopin) 0.5 mg PO TID [facility] Clonazepam (Klonopin) 0.5 mg PO BID [facility] Clonazepam (Klonopin) 1 mg PO TID [facility] Last Admin: 09/28/18 08:47 Dose: 1 mg Hydromorphone HCl (Dilaudid) 0.5 mg IVPUSH Q4H PRN PRN Reason: Pain (moderate 4-6) Last Admin: 09/28/18 07:20 Dose: 0.5 mg Sodium Chloride (Normal Saline) 1,000 mls @ 999 mls/hr IV ONETIME ONE Stop: 09/27/18 12:15 Last Admin: 09/27/18 11:41 Dose: 999 mls/hr Magnesium Sulfate 2 gm/ Premix 50 mls @ 50 mls/hr IV ONETIME ONE Stop: 09/27/18 14:20 Last Admin: 09/27/18 13:49 Dose: 50 mls/hr Magnesium Sulfate 2 gm/ Premix 50 mls @ 25 mls/hr IV ONETIME ONE Stop: 09/27/18 18:55 Last Admin: 09/27/18 19:28 Dose: Not Given Magnesium Sulfate 2 gm/ Premix 50 mls @ 25 mls/hr IV Q1H [facility] Stop: 09/27/18 18:59 Last Admin: 09/27/18 19:47 Dose: 25 mls/hr Magnesium Sulfate 2 gm/ Premix 50 mls @ 25 mls/hr IV ONETIME ONE Stop: 09/28/18 08:59 Last Admin: 09/28/18 06:57 Dose: 25 mls/hr Potassium Chloride 10 meq/ (Premix) 100 mls @ 100 mls/hr IV Q1H [facility] Stop: 09/28/18 10:59 Last Admin: 09/28/18 10:25 Dose: 100 mls/hr Ibuprofen (Motrin) 600 mg PO ONETIME ONE Stop: 09/27/18 14:24 Last Admin: 09/27/18 14:32 Dose: 600 mg Pneumococcal Polyvalent Vaccine (Pneumovax 23) 0.5 ml IM .ONCE ONE Stop: 09/27/18 17:14 Potassium Chloride (Klor-Con M20) 60 meq PO ONETIME ONE Stop: 09/28/18 07:01 Last Admin: 09/28/18 07:22 Dose: 60 meq - Exam Quality Assessment: Reports: DVT Prophylaxis General: Reports: Alert, Oriented, Cooperative (mostly ), No Acute Distress HEENT: Reports: Pupils Equal, Pupils Reactive, EOMI, Mucous Membr. Moist/[place] Neck: Reports: Supple, Trachea Midline Lungs: Reports: Clear to Auscultation, Normal Respiratory Effort Cardiovascular: Reports: Regular Rate, Regular Rhythm GI/Abdominal Exam: Normal Bowel Sounds, Soft, Non-Tender, No Distention, No Abnormal Bruit (Male) Exam: Deferred Rectal (Males) Exam: Deferred Back Exam: Reports: Normal Inspection, Full Range of Motion Extremities: Normal Inspection, Normal Range of Motion, Non-Tender, No Pedal Edema, Normal Capillary Refill Skin: Reports: Warm, Dry, Intact Neurological: Reports: No New Focal Deficit Psy/Mental Status: Reports: Alert. Denies: Withdrawal Symptoms
[2018-09-29] MEDS ORDERED: Acetaminophen/HYDROcodone 325-5 MG Tab PO PRN (09:11)
[2018-09-29] MEDS: Nicotine 21 MG/24 Hr Patch TRDERM SCH (09:17)
[2018-09-29] MEDS: Losartan 100 MG Tab PO SCH (09:18)
[2018-09-29] MEDS: Folic Acid 1 MG Tab PO SCH (09:18)
[2018-09-29] MEDS: ClonazePAM 1 MG Tab PO SCH ×2 (09:18→21:38)
[2018-09-29] MEDS: Thiamine 100 MG Tab PO SCH (09:18)
[2018-09-29] MEDS: Aspirin 81 MG Tab.EC PO SCH (09:18)
[2018-09-29] MEDS: amLODIPine 5 MG Tab PO SCH (09:20)
[2018-09-29] MEDS: Hydrochlorothiazide 25 MG Tab PO SCH (09:20)
[2018-09-29] MEDS: Atenolol 50 MG Tab PO SCH (09:20)
[2018-09-29] MEDS ORDERED: Magnesium Sulfate/Water 2 GM in Premix Bag 1 BAG IV ONE (09:39)
[2018-09-29] MEDS ORDERED: LORazepam 2 MG/ML SDV IVPUSH PRN (10:50)
[2018-09-29] MEDS: Acetaminophen/HYDROcodone 325-5 MG Tab PO PRN ×2 (15:34→21:36)
[2018-09-29] MEDS: Enoxaparin 40 MG/0.4 ML Syringe SUBCUT SCH (16:27)
[2018-09-29] MEDS: Simvastatin 10 MG Tab PO SCH (21:37)
[2018-09-30] MEDS: Acetaminophen/HYDROcodone 325-5 MG Tab PO PRN (03:37)
[2018-09-30] MEDS ORDERED: Magnesium Sulfate/Water 4 GM in Premix Bag 1 BAG IV ONE (07:15)
[2018-09-30] MEDS: Losartan 100 MG Tab PO SCH (08:08)
[2018-09-30] MEDS: Hydrochlorothiazide 25 MG Tab PO SCH (08:08)
[2018-09-30] MEDS: Folic Acid 1 MG Tab PO SCH (08:10)
[2018-09-30] MEDS: Atenolol 50 MG Tab PO SCH (08:10)
[2018-09-30] MEDS: ClonazePAM 1 MG Tab PO SCH (08:10)
[2018-09-30] MEDS: amLODIPine 5 MG Tab PO SCH (08:11)
[2018-09-30] MEDS: Aspirin 81 MG Tab.EC PO SCH (08:11)
[2018-09-30] MEDS: Thiamine 100 MG Tab PO SCH (08:11)
[2018-09-30] MEDS: Nicotine 21 MG/24 Hr Patch TRDERM SCH (08:11)
[2018-09-30] MEDS ORDERED: Magnesium Oxide 400 MG Tab PO SCH (09:00)
== END 2018-09-30 09:00 | disposition other institution (70) | DRG 896 ==
LOC: JD.ED 10:52 → JD.ICU 16:14 → JD.MS 09-29 12:00
PROVIDERS: ADMIT Internal Medicine; ATTEND Internal Medicine
DX: F10.239 Alcohol dependence with withdrawal, unspecified (principal); K85.20 Alcohol induced acute pancreatitis without necrosis or infection; S42.212A Unspecified displaced fracture of surgical neck of left humerus, initial encounter for closed fracture; E83.42 Hypomagnesemia; I10 Essential (primary) hypertension; F41.9 Anxiety disorder, unspecified; E78.00 Pure hypercholesterolemia, unspecified; F32.9 Major depressive disorder, single episode, unspecified; F17.210 Nicotine dependence, cigarettes, uncomplicated; W01.0XXA Fall on same level from slipping, tripping and stumbling without subsequent striking against object, initial encounter; E87.6 Hypokalemia; E78.5 Hyperlipidemia, unspecified; E66.9 Obesity, unspecified; Z68.30 Body mass index [BMI] 30.0-30.9, adult; Z79.82 Long term (current) use of aspirin; Z88.0 Allergy status to penicillin; Z79.899 Other long term (current) drug therapy
CPT/HCPCS: 36415; 73030-26-LT; 73030-LT; 80048; 80053; 80306; 82550; 83036; 83690; 83735; 84100; 84443; 85007; 85025; 85027; 85610; 93005; 93010; 96361; 96365; 99285; 99285-25; A9270-GY; G0480; J1170; J1650; J3475; J3480; J7040; J7042

== ENCOUNTER 2019-01-18 20:54 | Emergency (ER) | payer MEDICAID, OTHER ==
[2019-01-18] MEDS ORDERED: Lactated Ringers 1,000 ML IV SCH (21:45)
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
[2019-01-18] MEDS ORDERED: Potassium Chloride 20 MEQ Tab.ER PO ONE (22:13)
[2019-01-18] MEDS ORDERED: Potassium Chloride 10 MEQ in Premix Bag 1 BAG IV ONE (22:14)
[2019-01-18] MEDS ORDERED: chlordiazePOXIDE 25 MG Cap PO ONE (22:28)
[2019-01-18] MEDS: Potassium Chloride 10 MEQ in Premix Bag 1 BAG IV SCH (23:34)
[2019-01-18] MEDS ORDERED: Magnesium Sulfate/Water 2 GM in Premix Bag 1 BAG IV ONE (23:43)
[2019-01-19] MEDS: Potassium Chloride 10 MEQ in Premix Bag 1 BAG IV SCH (00:41)
--- NOTE | 2019-01-19 10:39 | CT ---
Head CT Technique: Multiple axial sections through the brain were obtained. Intravenous contrast was not utilized. Comparison: Prior head CT study of 11/21/18. Findings: Ventricles along with basal cisterns and sulci over the convexities are mildly prominent. No abnormal parenchymal densities are seen. No evidence of intracranial hemorrhage. No midline shift or mass effect is seen. Bone window settings were reviewed which show no acute calvarial abnormality. Visualized mastoid sinuses are clear. Visualized paranasal sinuses show nothing acute. Impression: 1. Mild generalized atrophy. 2. Nothing acute is appreciated on noncontrast head CT exam. Diagnostic code #2 I agree with preliminary report from [facility], finalized on 01/18/19, 11:35 PM Central Time
== END 2019-01-19 02:17 | disposition home or self-care (01) ==
LOC: JD.ED 20:54
DX: R56.9 Unspecified convulsions (principal); E83.42 Hypomagnesemia; E87.6 Hypokalemia; F10.20 Alcohol dependence, uncomplicated; I10 Essential (primary) hypertension; E78.00 Pure hypercholesterolemia, unspecified; F41.9 Anxiety disorder, unspecified; F32.9 Major depressive disorder, single episode, unspecified; E66.9 Obesity, unspecified; F17.210 Nicotine dependence, cigarettes, uncomplicated; Z79.899 Other long term (current) drug therapy; Z79.82 Long term (current) use of aspirin; Z68.27 Body mass index [BMI] 27.0-27.9, adult; Z88.0 Allergy status to penicillin
CPT/HCPCS: 36415; 70450; 80053; 80306; 80320; 81001; 83735; 85007; 85027; 85610; 96361; 96365; 96366; 96368; 99284; A9270; J3475; J3480; J7120; 99283; G0480